=== PATIENT | female | born 1955 | race Caucasian/White ===

== ENCOUNTER 2017-11-03 15:30 | Emergency (ER) | payer MEDICARE, OTHER, SELFPAY ==
[~2017-11-03] VITALS: Ht 165.1 cm; Wt 54.4 kg
[~2017-11-03 15:30] MED LIST: ACET325 PO; ACIDOPHILUS LA1 EACH PO; ARANESP SC; AZIT500 PO; B COMPLEX WITH1 EACH PO; BUME2 PO; CHOL10002 PO; Calcium Carbon500 MG PO; Cipro250 MG PO; Culturelle1 CAP PO; FAMO20 PO; FOLI1 PO; GLUC500 PO; HYDR1TAB94 PO; LEVFLO250 PO; LOSA25 PO; LOSA50 PO; Lisinopril2.5 MG; MAGCHL64ER PO; METR500 PO; Nephro-Vite RX1 EA PO; Oxycodone-Apap1 EAC3 PO; POTA20LUD PO; POTCHL10ER PO; PROBIOTIC1 EAC1 PO; PROM25 PO; Pantoprazole So40 MG PO; Promethazine12.5 M1 PO; Pyridium200 MG PO; SPIR25 PO; SPIR50 PO; TRIPLE MAGNESI400 MG PO; VANCO 1 GR1 GM/250 M IV; VANCOMYCIN125 MG/2.5 PO; Vitamin D2000 UNIT PO; Zofran Odt4 MG PO; Zofran4 MG PO
[2017-11-03 16:05] LABS: BASOPHILS ABSOLUTE AUTO 0.05 K/mm3 (0.00-0.23); BASOPHILS PERCENT AUTO 1 % (0-2); EOSINOPHILS ABSOLUTE AUTO 0.08 K/mm3 (0.00-0.68); EOSINOPHILS PERCENT AUTO 1 % (0-6); Hematocrit 31.7 % (33.0-51.0); Hemoglobin 10.5 g/dL (11.5-16.0); IMMATURE GRAN ABSOLUTE AUTO 0.02 K/mm3 (0.00-0.10); IMMATURE GRAN PERCENT AUTO 0 % (0-1); LYMPHOCYTES ABSOLUTE AUTO 2.46 K/mm3 (0.84-5.20); LYMPHOCYTES PERCENT AUTO 33 % (21-46); MONOCYTES ABSOLUTE AUTO 0.69 K/mm3 (0.16-1.47); MONOCYTES PERCENT AUTO 9 % (4-13); Mean Corpuscular HGB 32.4 pg (26.0-34.0); Mean Corpuscular HGB Conc 33.1 g/dL (31.5-36.5); Mean Corpuscular Volume 98 fL (80-100); Mean Platelet Volume 11.4 fL (9.1-12.4); NEUTROPHILS ABSOLUTE AUTO 4.15 K/mm3 (1.96-9.15); NEUTROPHILS PERCENT AUTO 56 % (41-73); Platelet Count 100 K/mm3 (150-400); RDW Coefficient Variation 15.6 % (11.7-14.2); Red Blood Cell Count 3.24 M/mm3 (3.80-5.20); White Blood Cell Count 7.45 K/mm3 (4.00-11.30)
[2017-11-03 16:25] LABS: Albumin, Blood 1.7 g/dL (3.4-5.0); Albumin/Globulin Ratio 0.4 (0.8-1.8); Bilirubin, Total 0.6 mg/dL (0.1-1.0); Bun/Creatinine Ratio 4.5 (12.0-20.0); Calcium, Blood 6.5 mg/dL (8.5-10.1); Creatinine, Blood 5.33 mg/dL (0.40-1.00); Globulin, Blood 4.8 g/dL (2.2-4.0); Potassium, Blood 3.6 mmol/L (3.5-5.5); Total Protein, Blood 6.5 g/dL (6.4-8.2)
[2017-11-03 21:00] LABS: Automated BF WBC Count 0.006 K/mm3 (0-999); Body Fluid WBC Count 6 /mm3 (0-999)
[2017-11-03 21:33] LABS: RBC Count, Body Fluid 350 /mm3 (0-0)
[2017-11-03 21:39] LABS: Appearance, Body Fluid Clear (Clear); Color, Body Fluid No color (None-Yellow)
[2017-11-03 21:40] LABS: Total Cell Count, Body Fluid 53
== END 2017-11-03 23:13 | disposition home or self-care (01) ==
LOC: ER 15:30
PROVIDERS: Internal Medicine Nephrology; Physician Assistant
DX: R53.83 Other fatigue (principal); I12.0 Hypertensive chronic kidney disease with stage 5 chronic kidney disease or end stage renal disease; N18.6 End stage renal disease; E83.51 Hypocalcemia; E88.09 Other disorders of plasma-protein metabolism, not elsewhere classified; Z99.2 Dependence on renal dialysis
CPT/HCPCS: 36415; 71046; 76705; 80053; 84443; 84484; 85025; 89051; 93005; 93010; 99284-25; G0257

== ENCOUNTER 2017-12-08 22:38 | Inpatient (IN) | payer MEDICARE, OTHER ==
[~2017-12-08] VITALS: Ht 165.1 cm; Wt 55.7 kg
[~2017-12-08 22:38] MED LIST changes: +CIPR500 PO; +Carafate1 GM/10 ML PO; +Prilosec Otc20 MG PO
[2017-12-08 23:03] LABS: BASOPHILS ABSOLUTE AUTO 0.03 K/mm3 (0.00-0.23); BASOPHILS PERCENT AUTO 1 % (0-2); EOSINOPHILS PERCENT AUTO 0 % (0-6); Hematocrit 38.8 % (33.0-51.0); Hemoglobin 12.9 g/dL (11.5-16.0); IMMATURE GRAN ABSOLUTE AUTO 0.09 K/mm3 (0.00-0.10); IMMATURE GRAN PERCENT AUTO 1 % (0-1); LYMPHOCYTES ABSOLUTE AUTO 0.93 K/mm3 (0.84-5.20); LYMPHOCYTES PERCENT AUTO 15 % (21-46); MONOCYTES ABSOLUTE AUTO 0.87 K/mm3 (0.16-1.47); MONOCYTES PERCENT AUTO 14 % (4-13); Mean Corpuscular HGB 31.9 pg (26.0-34.0); Mean Corpuscular HGB Conc 33.2 g/dL (31.5-36.5); Mean Corpuscular Volume 96 fL (80-100); Mean Platelet Volume 9.7 fL (9.1-12.4); NEUTROPHILS PERCENT AUTO 70 % (41-73); Platelet Count 138 K/mm3 (150-400); RDW Coefficient Variation 16.8 % (11.7-14.2); RDW Standard Deviation 57.8 fL (35.1-46.3); Red Blood Cell Count 4.05 M/mm3 (3.80-5.20); White Blood Cell Count 6.32 K/mm3 (4.00-11.30)
[2017-12-08 23:22] LABS: Albumin, Blood 1.4 g/dL (3.4-5.0); Albumin/Globulin Ratio 0.3 (0.8-1.8); Bilirubin, Total 0.8 mg/dL (0.1-1.0); Bun/Creatinine Ratio 4.8 (12.0-20.0); Calcium, Blood 8.5 mg/dL (8.5-10.1); Creatinine, Blood 7.34 mg/dL (0.40-1.00); Globulin, Blood 5.4 g/dL (2.2-4.0); Potassium, Blood 5.8 mmol/L (3.5-5.5); Total Protein, Blood 6.8 g/dL (6.4-8.2)
[2017-12-09 01:29] LABS: CHOL/HDL RATIO 2.4; Cholesterol 112 mg/dL (50-200); HDL Cholesterol 46 mg/dL (>39); LDL/HDL RATIO 0.9; Low Density Lipoprotein Chol 43 mg/dL (0-110); Triglycerides 117 mg/dL (30-160); Very Low Density Lipoprot Chol 23 mg/dL (6-32)
[2017-12-09 01:32] LABS: Automated BF WBC Count 1.273 K/mm3 (0-999); Body Fluid WBC Count 1273 /mm3 (0-999)
[2017-12-09 01:43] LABS: RBC Count, Body Fluid 12 /mm3 (0-0)
[2017-12-09 01:47] LABS: Albumin, Body Fluid 0.1 g/dL; Protein, Body Fluid 0.2 g/dL
[2017-12-09 01:51] LABS: Lactate Dehydrogenase, Body Fl 25 U/L
[2017-12-09 02:12] LABS: Appearance, Body Fluid Hazy (Clear); Color, Body Fluid No color (None-Yellow)
[2017-12-09 02:17] LABS: Total Cell Count, Body Fluid 100
[2017-12-09 10:25] LABS: Automated BF WBC Count 1.287 K/mm3 (0-999); Body Fluid WBC Count 1287 /mm3 (0-999)
[2017-12-09 11:19] LABS: Hematocrit 28.7 % (33.0-51.0); Hemoglobin 9.5 g/dL (11.5-16.0); Mean Corpuscular HGB 32.4 pg (26.0-34.0); Mean Corpuscular HGB Conc 33.1 g/dL (31.5-36.5); Mean Corpuscular Volume 98 fL (80-100); Mean Platelet Volume 10.4 fL (9.1-12.4); Platelet Count 101 K/mm3 (150-400); RDW Coefficient Variation 16.9 % (11.7-14.2); RDW Standard Deviation 59.2 fL (35.1-46.3); Red Blood Cell Count 2.93 M/mm3 (3.80-5.20); White Blood Cell Count 6.75 K/mm3 (4.00-11.30)
[2017-12-09 11:27] LABS: RBC Count, Body Fluid 14 /mm3 (0-0)
[2017-12-09 11:36] LABS: Albumin/Globulin Ratio 0.5 (0.8-1.8); Bilirubin, Total 0.6 mg/dL (0.1-1.0); Bun/Creatinine Ratio 4.7 (12.0-20.0); Calcium, Blood 7.7 mg/dL (8.5-10.1); Creatinine, Blood 7.67 mg/dL (0.40-1.00); Globulin, Blood 4.4 g/dL (2.2-4.0); Potassium, Blood 5.4 mmol/L (3.5-5.5); Total Protein, Blood 6.4 g/dL (6.4-8.2)
[2017-12-09 12:05] LABS: Appearance, Body Fluid Hazy (Clear); Color, Body Fluid L Yellow (None-Yellow)
[2017-12-09 12:35] LABS: Total Cell Count, Body Fluid 100
[2017-12-10 04:19] LABS: BASOPHILS ABSOLUTE AUTO 0.03 K/mm3 (0.00-0.23); BASOPHILS PERCENT AUTO 1 % (0-2); EOSINOPHILS ABSOLUTE AUTO 0.03 K/mm3 (0.00-0.68); EOSINOPHILS PERCENT AUTO 1 % (0-6); Hematocrit 28.1 % (33.0-51.0); Hemoglobin 9.3 g/dL (11.5-16.0); IMMATURE GRAN ABSOLUTE AUTO 0.02 K/mm3 (0.00-0.10); IMMATURE GRAN PERCENT AUTO 1 % (0-1); LYMPHOCYTES ABSOLUTE AUTO 0.88 K/mm3 (0.84-5.20); LYMPHOCYTES PERCENT AUTO 27 % (21-46); MONOCYTES ABSOLUTE AUTO 0.56 K/mm3 (0.16-1.47); MONOCYTES PERCENT AUTO 17 % (4-13); Mean Corpuscular HGB 32.2 pg (26.0-34.0); Mean Corpuscular HGB Conc 33.1 g/dL (31.5-36.5); Mean Corpuscular Volume 97 fL (80-100); NEUTROPHILS ABSOLUTE AUTO 1.72 K/mm3 (1.96-9.15); NEUTROPHILS PERCENT AUTO 53 % (41-73); Platelet Count 76 K/mm3 (150-400); RDW Coefficient Variation 16.6 % (11.7-14.2); RDW Standard Deviation 57.8 fL (35.1-46.3); Red Blood Cell Count 2.89 M/mm3 (3.80-5.20); White Blood Cell Count 3.24 K/mm3 (4.00-11.30)
[2017-12-10 04:35] LABS: Albumin, Blood 1.7 g/dL (3.4-5.0); Albumin/Globulin Ratio 0.4 (0.8-1.8); Bilirubin, Total 0.5 mg/dL (0.1-1.0); Bun/Creatinine Ratio 4.8 (12.0-20.0); Creatinine, Blood 6.42 mg/dL (0.40-1.00); Globulin, Blood 4.2 g/dL (2.2-4.0); Potassium, Blood 3.9 mmol/L (3.5-5.5); Total Protein, Blood 5.9 g/dL (6.4-8.2)
[2017-12-11 03:33] LABS: BASOPHILS ABSOLUTE AUTO 0.01 K/mm3 (0.00-0.23); BASOPHILS PERCENT AUTO 0 % (0-2); EOSINOPHILS ABSOLUTE AUTO 0.05 K/mm3 (0.00-0.68); EOSINOPHILS PERCENT AUTO 2 % (0-6); Hematocrit 26.2 % (33.0-51.0); Hemoglobin 8.4 g/dL (11.5-16.0); IMMATURE GRAN ABSOLUTE AUTO 0.02 K/mm3 (0.00-0.10); IMMATURE GRAN PERCENT AUTO 1 % (0-1); LYMPHOCYTES ABSOLUTE AUTO 0.82 K/mm3 (0.84-5.20); LYMPHOCYTES PERCENT AUTO 26 % (21-46); MONOCYTES ABSOLUTE AUTO 0.37 K/mm3 (0.16-1.47); MONOCYTES PERCENT AUTO 12 % (4-13); Mean Corpuscular HGB 31.8 pg (26.0-34.0); Mean Corpuscular HGB Conc 32.1 g/dL (31.5-36.5); Mean Corpuscular Volume 99 fL (80-100); Mean Platelet Volume 10.8 fL (9.1-12.4); NEUTROPHILS PERCENT AUTO 60 % (41-73); Platelet Count 74 K/mm3 (150-400); RDW Coefficient Variation 16.2 % (11.7-14.2); RDW Standard Deviation 58.1 fL (35.1-46.3); Red Blood Cell Count 2.64 M/mm3 (3.80-5.20); White Blood Cell Count 3.17 K/mm3 (4.00-11.30)
[2017-12-11 03:44] LABS: International Normalized Ratio 1.36; Prothrombin Time Results 13.8 Sec (9.7-11.5)
[2017-12-11 03:50] LABS: Alanine Aminotransfer (ALT/SGP 8 U/L (12-78); Albumin, Blood 1.3 g/dL (3.4-5.0); Albumin/Globulin Ratio 0.4 (0.8-1.8); Alk Phos 160 U/L (50-136); Anion Gap 10 mmol/L (6-16); Aspartate Aminotrans (AST/SGOT 14 U/L (12-37); Bilirubin, Total 0.4 mg/dL (0.1-1.0); Blood Urea Nitrogen 22 mg/dL (8-24); Bun/Creatinine Ratio 4.3 (12.0-20.0); CO2, Blood 23 mmol/L (21-32); Calcium, Blood 7.1 mg/dL (8.5-10.1); Chloride, Blood 101 mmol/L (98-108); Creatinine, Blood 5.06 mg/dL (0.40-1.00); Globulin, Blood 3.7 g/dL (2.2-4.0); Glomerular Filtration Rate 9 (60-); Glucose, Blood 144 mg/dL (70-99); Phosphorus, Blood 2.7 mg/dL (2.5-4.9); Sodium, Blood 134 mmol/L (136-145)
[2017-12-11 04:13] LABS: Magnesium, Blood 1.1 mg/dL (1.6-2.4)
[2017-12-11 07:58] LABS: Automated BF WBC Count 0.079 K/mm3 (0-999); Body Fluid WBC Count 79 /mm3 (0-999)
[2017-12-11 08:21] LABS: RBC Count, Body Fluid 2 /mm3 (0-0)
[2017-12-11 08:28] LABS: Appearance, Body Fluid Clear (Clear); Color, Body Fluid No color (None-Yellow)
[2017-12-11 08:40] LABS: Total Cell Count, Body Fluid 100
[2017-12-11 18:15] LABS: Source, Urine Catheter
[2017-12-11 18:21] LABS: Appearance, Urine Clear (Clear); Blood, Urine 4+ (Neg); Color, Urine Amber (P-Yellow); Glucose Qualitative, Urine Neg (Neg); Ketones, Urine 1+ (Neg); Leukocyte Esterase, Urine 2+ (Neg); Nitrite, Urine Neg (Neg); Protein, Urine 2+ (Neg); Urobilinogen, Urine NORM (Normal)
[2017-12-11 18:32] LABS: Bilirubin, Urine 1+ (Neg)
[2017-12-11 18:33] LABS: Amorphous Light (0-Heavy); Bacteria Mod /hpf; Squamous Epithelial Cells Few /hpf (Few)
[2017-12-12 03:53] LABS: BASOPHILS ABSOLUTE AUTO 0.02 K/mm3 (0.00-0.23); BASOPHILS PERCENT AUTO 1 % (0-2); EOSINOPHILS ABSOLUTE AUTO 0.03 K/mm3 (0.00-0.68); EOSINOPHILS PERCENT AUTO 1 % (0-6); Hematocrit 26.3 % (33.0-51.0); Hemoglobin 8.8 g/dL (11.5-16.0); IMMATURE GRAN ABSOLUTE AUTO 0.03 K/mm3 (0.00-0.10); IMMATURE GRAN PERCENT AUTO 1 % (0-1); LYMPHOCYTES ABSOLUTE AUTO 1.09 K/mm3 (0.84-5.20); LYMPHOCYTES PERCENT AUTO 28 % (21-46); MONOCYTES ABSOLUTE AUTO 0.49 K/mm3 (0.16-1.47); MONOCYTES PERCENT AUTO 12 % (4-13); Mean Corpuscular HGB Conc 33.5 g/dL (31.5-36.5); Mean Corpuscular Volume 99 fL (80-100); NEUTROPHILS ABSOLUTE AUTO 2.28 K/mm3 (1.96-9.15); NEUTROPHILS PERCENT AUTO 58 % (41-73); Platelet Count 89 K/mm3 (150-400); RDW Coefficient Variation 16.8 % (11.7-14.2); RDW Standard Deviation 59.2 fL (35.1-46.3); Red Blood Cell Count 2.67 M/mm3 (3.80-5.20); White Blood Cell Count 3.94 K/mm3 (4.00-11.30)
[2017-12-12 04:08] LABS: Alanine Aminotransfer (ALT/SGP 9 U/L (12-78); Albumin, Blood 1.3 g/dL (3.4-5.0); Albumin/Globulin Ratio 0.4 (0.8-1.8); Alk Phos 153 U/L (50-136); Anion Gap 10 mmol/L (6-16); Aspartate Aminotrans (AST/SGOT 20 U/L (12-37); Bilirubin, Total 0.4 mg/dL (0.1-1.0); Blood Urea Nitrogen 19 mg/dL (8-24); Bun/Creatinine Ratio 3.7 (12.0-20.0); CO2, Blood 23 mmol/L (21-32); Calcium, Blood 7.4 mg/dL (8.5-10.1); Chloride, Blood 101 mmol/L (98-108); Creatinine, Blood 5.07 mg/dL (0.40-1.00); Globulin, Blood 3.6 g/dL (2.2-4.0); Glomerular Filtration Rate 9 (60-); Glucose, Blood 128 mg/dL (70-99); Magnesium, Blood 1.6 mg/dL (1.6-2.4); Phosphorus, Blood 2.7 mg/dL (2.5-4.9); Potassium, Blood 3.4 mmol/L (3.5-5.5); Sodium, Blood 134 mmol/L (136-145); Total Protein, Blood 4.9 g/dL (6.4-8.2)
[2017-12-12 07:30] LABS: Automated BF WBC Count 0.091 K/mm3 (0-999); Body Fluid WBC Count 91 /mm3 (0-999)
[2017-12-12 08:32] LABS: RBC Count, Body Fluid 6 /mm3 (0-0)
[2017-12-12 08:55] LABS: Appearance, Body Fluid Clear (Clear); Color, Body Fluid No color (None-Yellow)
[2017-12-12 08:56] LABS: Total Cell Count, Body Fluid 100
[2017-12-13 04:28] LABS: BASOPHILS ABSOLUTE AUTO 0.02 K/mm3 (0.00-0.23); BASOPHILS PERCENT AUTO 1 % (0-2); EOSINOPHILS ABSOLUTE AUTO 0.04 K/mm3 (0.00-0.68); EOSINOPHILS PERCENT AUTO 1 % (0-6); Hematocrit 26.3 % (33.0-51.0); Hemoglobin 8.7 g/dL (11.5-16.0); IMMATURE GRAN ABSOLUTE AUTO 0.03 K/mm3 (0.00-0.10); IMMATURE GRAN PERCENT AUTO 1 % (0-1); LYMPHOCYTES ABSOLUTE AUTO 1.04 K/mm3 (0.84-5.20); LYMPHOCYTES PERCENT AUTO 27 % (21-46); MONOCYTES ABSOLUTE AUTO 0.46 K/mm3 (0.16-1.47); MONOCYTES PERCENT AUTO 12 % (4-13); Mean Corpuscular HGB 32.5 pg (26.0-34.0); Mean Corpuscular HGB Conc 33.1 g/dL (31.5-36.5); Mean Corpuscular Volume 98 fL (80-100); Mean Platelet Volume 10.1 fL (9.1-12.4); NEUTROPHILS ABSOLUTE AUTO 2.22 K/mm3 (1.96-9.15); NEUTROPHILS PERCENT AUTO 58 % (41-73); Platelet Count 90 K/mm3 (150-400); RDW Coefficient Variation 17.1 % (11.7-14.2); RDW Standard Deviation 59.8 fL (35.1-46.3); Red Blood Cell Count 2.68 M/mm3 (3.80-5.20); White Blood Cell Count 3.81 K/mm3 (4.00-11.30)
[2017-12-13 04:50] LABS: Alanine Aminotransfer (ALT/SGP 7 U/L (12-78); Albumin, Blood 1.2 g/dL (3.4-5.0); Albumin/Globulin Ratio 0.3 (0.8-1.8); Alk Phos 152 U/L (50-136); Anion Gap 9 mmol/L (6-16); Aspartate Aminotrans (AST/SGOT 16 U/L (12-37); Bilirubin, Total 0.6 mg/dL (0.1-1.0); Blood Urea Nitrogen 19 mg/dL (8-24); Bun/Creatinine Ratio 3.8 (12.0-20.0); CO2, Blood 24 mmol/L (21-32); Calcium, Blood 7.6 mg/dL (8.5-10.1); Chloride, Blood 101 mmol/L (98-108); Creatinine, Blood 5.05 mg/dL (0.40-1.00); Globulin, Blood 3.7 g/dL (2.2-4.0); Glomerular Filtration Rate 9 (60-); Glucose, Blood 126 mg/dL (70-99); Magnesium, Blood 1.6 mg/dL (1.6-2.4); Phosphorus, Blood 2.6 mg/dL (2.5-4.9); Potassium, Blood 3.4 mmol/L (3.5-5.5); Sodium, Blood 134 mmol/L (136-145); Total Protein, Blood 4.9 g/dL (6.4-8.2)
[2017-12-13 09:35] LABS: Automated BF WBC Count 0.162 K/mm3 (0-999); Body Fluid WBC Count 162 /mm3 (0-999)
[2017-12-13 10:21] LABS: RBC Count, Body Fluid 6 /mm3 (0-0)
[2017-12-13 10:31] LABS: Appearance, Body Fluid Clear (Clear); Color, Body Fluid No color (None-Yellow)
[2017-12-13 10:32] LABS: Total Cell Count, Body Fluid 100
[2017-12-14 04:55] LABS: Hematocrit 28.1 % (33.0-51.0); Hemoglobin 9.2 g/dL (11.5-16.0)
[2017-12-14 05:16] LABS: Albumin, Blood 1.2 g/dL (3.4-5.0); Anion Gap 8 mmol/L (6-16); Blood Urea Nitrogen 19 mg/dL (8-24); Bun/Creatinine Ratio 3.7 (12.0-20.0); CO2, Blood 25 mmol/L (21-32); Chloride, Blood 100 mmol/L (98-108); Glomerular Filtration Rate 9 (60-); Glucose, Blood 133 mg/dL (70-99); Magnesium, Blood 1.8 mg/dL (1.6-2.4); Phosphorus, Blood 2.8 mg/dL (2.5-4.9); Potassium, Blood 3.4 mmol/L (3.5-5.5); Sodium, Blood 133 mmol/L (136-145)
[2017-12-14 13:13] LABS: Performing Lab LABCORP; Test Name 183119
[2017-12-15 04:13] LABS: Hematocrit 26.5 % (33.0-51.0); Hemoglobin 8.7 g/dL (11.5-16.0)
[2017-12-15 04:27] LABS: Albumin, Blood 1.5 g/dL (3.4-5.0); Anion Gap 9 mmol/L (6-16); Blood Urea Nitrogen 18 mg/dL (8-24); Bun/Creatinine Ratio 3.5 (12.0-20.0); CO2, Blood 27 mmol/L (21-32); Chloride, Blood 98 mmol/L (98-108); Creatinine, Blood 5.08 mg/dL (0.40-1.00); Glomerular Filtration Rate 9 (60-); Glucose, Blood 119 mg/dL (70-99); Magnesium, Blood 1.5 mg/dL (1.6-2.4); Phosphorus, Blood 2.8 mg/dL (2.5-4.9); Potassium, Blood 3.3 mmol/L (3.5-5.5); Sodium, Blood 134 mmol/L (136-145)
[2017-12-15 08:53] LABS: Automated BF WBC Count 0.326 K/mm3 (0-999); Body Fluid WBC Count 326 /mm3 (0-999)
[2017-12-15 09:53] LABS: Appearance, Body Fluid Clear (Clear); Color, Body Fluid No color (None-Yellow)
[2017-12-15 10:02] LABS: RBC Count, Body Fluid 13 /mm3 (0-0)
[2017-12-15 10:36] LABS: Total Cell Count, Body Fluid 100
[2017-12-16 04:31] LABS: Hematocrit 25.7 % (33.0-51.0); Hemoglobin 8.3 g/dL (11.5-16.0)
[2017-12-16 04:49] LABS: Albumin, Blood 1.8 g/dL (3.4-5.0); Anion Gap 8 mmol/L (6-16); Blood Urea Nitrogen 18 mg/dL (8-24); Bun/Creatinine Ratio 3.7 (12.0-20.0); CO2, Blood 29 mmol/L (21-32); Calcium, Blood 8.4 mg/dL (8.5-10.1); Chloride, Blood 97 mmol/L (98-108); Glomerular Filtration Rate 10 (60-); Glucose, Blood 95 mg/dL (70-99); Magnesium, Blood 1.8 mg/dL (1.6-2.4); Phosphorus, Blood 2.9 mg/dL (2.5-4.9); Potassium, Blood 3.6 mmol/L (3.5-5.5); Sodium, Blood 134 mmol/L (136-145)
[2017-12-16 07:15] LABS: Automated BF WBC Count 0.084 K/mm3 (0-999); Body Fluid WBC Count 84 /mm3 (0-999)
[2017-12-16 07:23] LABS: RBC Count, Body Fluid 1 /mm3 (0-0)
[2017-12-16 07:24] LABS: Appearance, Body Fluid Clear (Clear); Color, Body Fluid No color (None-Yellow)
[2017-12-16 07:54] LABS: Total Cell Count, Body Fluid 100
[2017-12-17 06:57] LABS: BASOPHILS ABSOLUTE AUTO 0.01 K/mm3 (0.00-0.23); BASOPHILS PERCENT AUTO 0 % (0-2); EOSINOPHILS ABSOLUTE AUTO 0.04 K/mm3 (0.00-0.68); EOSINOPHILS PERCENT AUTO 1 % (0-6); Hematocrit 26.2 % (33.0-51.0); Hemoglobin 8.3 g/dL (11.5-16.0); IMMATURE GRAN ABSOLUTE AUTO 0.02 K/mm3 (0.00-0.10); IMMATURE GRAN PERCENT AUTO 1 % (0-1); LYMPHOCYTES ABSOLUTE AUTO 1.02 K/mm3 (0.84-5.20); LYMPHOCYTES PERCENT AUTO 30 % (21-46); MONOCYTES ABSOLUTE AUTO 0.67 K/mm3 (0.16-1.47); MONOCYTES PERCENT AUTO 20 % (4-13); Mean Corpuscular HGB 30.7 pg (26.0-34.0); Mean Corpuscular HGB Conc 31.7 g/dL (31.5-36.5); Mean Corpuscular Volume 97 fL (80-100); Mean Platelet Volume 10.1 fL (9.1-12.4); NEUTROPHILS ABSOLUTE AUTO 1.68 K/mm3 (1.96-9.15); NEUTROPHILS PERCENT AUTO 49 % (41-73); Platelet Count 97 K/mm3 (150-400); RDW Coefficient Variation 16.5 % (11.7-14.2); RDW Standard Deviation 56.8 fL (35.1-46.3); White Blood Cell Count 3.44 K/mm3 (4.00-11.30)
[2017-12-17 07:14] LABS: Alanine Aminotransfer (ALT/SGP 8 U/L (12-78); Albumin, Blood 2.1 g/dL (3.4-5.0); Albumin/Globulin Ratio 0.6 (0.8-1.8); Alk Phos 101 U/L (50-136); Anion Gap 8 mmol/L (6-16); Aspartate Aminotrans (AST/SGOT 15 U/L (12-37); Bilirubin, Direct 0.2 mg/dL (0.0-0.3); Bilirubin, Indirect 0.5 mg/dL (0.1-0.7); Bilirubin, Total 0.7 mg/dL (0.1-1.0); Blood Urea Nitrogen 18 mg/dL (8-24); Bun/Creatinine Ratio 3.5 (12.0-20.0); CO2, Blood 30 mmol/L (21-32); Calcium, Blood 8.8 mg/dL (8.5-10.1); Chloride, Blood 97 mmol/L (98-108); Creatinine, Blood 5.19 mg/dL (0.40-1.00); Globulin, Blood 3.6 g/dL (2.2-4.0); Glomerular Filtration Rate 9 (60-); Glucose, Blood 91 mg/dL (70-99); Magnesium, Blood 1.8 mg/dL (1.6-2.4); Phosphorus, Blood 3.2 mg/dL (2.5-4.9); Potassium, Blood 3.8 mmol/L (3.5-5.5); Sodium, Blood 135 mmol/L (136-145); Total Protein, Blood 5.7 g/dL (6.4-8.2)
[2017-12-17 07:30] LABS: Automated BF WBC Count 0.556 K/mm3 (0-999); Body Fluid WBC Count 556 /mm3 (0-999)
[2017-12-17 07:40] LABS: Appearance, Body Fluid Clear (Clear); Color, Body Fluid L Yellow (None-Yellow)
[2017-12-17 07:46] LABS: RBC Count, Body Fluid 23 /mm3 (0-0)
[2017-12-17 08:01] LABS: Total Cell Count, Body Fluid 100
[2017-12-18 05:54] LABS: Hematocrit 29.6 % (33.0-51.0); Hemoglobin 9.4 g/dL (11.5-16.0)
[2017-12-18 06:23] LABS: Anion Gap 9 mmol/L (6-16); Blood Urea Nitrogen 18 mg/dL (8-24); Bun/Creatinine Ratio 3.6 (12.0-20.0); CO2, Blood 28 mmol/L (21-32); Calcium, Blood 8.7 mg/dL (8.5-10.1); Chloride, Blood 97 mmol/L (98-108); Creatinine, Blood 4.99 mg/dL (0.40-1.00); Glomerular Filtration Rate 9 (60-); Glucose, Blood 151 mg/dL (70-99); Magnesium, Blood 1.8 mg/dL (1.6-2.4); Phosphorus, Blood 3.1 mg/dL (2.5-4.9); Potassium, Blood 3.3 mmol/L (3.5-5.5); Sodium, Blood 134 mmol/L (136-145)
[2017-12-18 09:26] LABS: Automated BF WBC Count 0.168 K/mm3 (0-999); Body Fluid WBC Count 168 /mm3 (0-999)
[2017-12-18 09:34] LABS: Appearance, Body Fluid Clear (Clear); Color, Body Fluid No color (None-Yellow); RBC Count, Body Fluid 6 /mm3 (0-0)
[2017-12-18 09:57] LABS: Total Cell Count, Body Fluid 100
[2017-12-19 06:04] LABS: BASOPHILS ABSOLUTE AUTO 0.03 K/mm3 (0.00-0.23); BASOPHILS PERCENT AUTO 0 % (0-2); EOSINOPHILS ABSOLUTE AUTO 0.04 K/mm3 (0.00-0.68); EOSINOPHILS PERCENT AUTO 0 % (0-6); Hematocrit 33.2 % (33.0-51.0); Hemoglobin 10.6 g/dL (11.5-16.0); IMMATURE GRAN ABSOLUTE AUTO 0.04 K/mm3 (0.00-0.10); IMMATURE GRAN PERCENT AUTO 0 % (0-1); LYMPHOCYTES ABSOLUTE AUTO 1.62 K/mm3 (0.84-5.20); LYMPHOCYTES PERCENT AUTO 18 % (21-46); MONOCYTES ABSOLUTE AUTO 1.91 K/mm3 (0.16-1.47); MONOCYTES PERCENT AUTO 21 % (4-13); Mean Corpuscular HGB 31.3 pg (26.0-34.0); Mean Corpuscular HGB Conc 31.9 g/dL (31.5-36.5); Mean Corpuscular Volume 98 fL (80-100); Mean Platelet Volume 9.8 fL (9.1-12.4); NEUTROPHILS ABSOLUTE AUTO 5.57 K/mm3 (1.96-9.15); NEUTROPHILS PERCENT AUTO 61 % (41-73); Platelet Count 233 K/mm3 (150-400); RDW Coefficient Variation 16.3 % (11.7-14.2); RDW Standard Deviation 58.4 fL (35.1-46.3); Red Blood Cell Count 3.39 M/mm3 (3.80-5.20); White Blood Cell Count 9.21 K/mm3 (4.00-11.30)
[2017-12-19 06:21] LABS: International Normalized Ratio 1.18
[2017-12-19 06:29] LABS: Anion Gap 10 mmol/L (6-16); Blood Urea Nitrogen 18 mg/dL (8-24); Bun/Creatinine Ratio 3.7 (12.0-20.0); CO2, Blood 30 mmol/L (21-32); Calcium, Blood 8.8 mg/dL (8.5-10.1); Chloride, Blood 94 mmol/L (98-108); Glomerular Filtration Rate 10 (60-); Glucose, Blood 176 mg/dL (70-99); Magnesium, Blood 1.9 mg/dL (1.6-2.4); Phosphorus, Blood 3.4 mg/dL (2.5-4.9); Potassium, Blood 3.4 mmol/L (3.5-5.5); Sodium, Blood 134 mmol/L (136-145)
[2017-12-20 04:50] LABS: Hematocrit 29.6 % (33.0-51.0); Hemoglobin 9.3 g/dL (11.5-16.0)
[2017-12-20 05:16] LABS: Albumin, Blood 1.5 g/dL (3.4-5.0); Anion Gap 8 mmol/L (6-16); Blood Urea Nitrogen 17 mg/dL (8-24); Bun/Creatinine Ratio 4.2 (12.0-20.0); CO2, Blood 28 mmol/L (21-32); Chloride, Blood 100 mmol/L (98-108); Creatinine, Blood 4.05 mg/dL (0.40-1.00); Glomerular Filtration Rate 12 (60-); Glucose, Blood 111 mg/dL (70-99); Phosphorus, Blood 4.6 mg/dL (2.5-4.9); Potassium, Blood 5.2 mmol/L (3.5-5.5); Sodium, Blood 136 mmol/L (136-145)
[2017-12-21 06:28] LABS: Albumin, Blood 1.5 g/dL (3.4-5.0); Anion Gap 9 mmol/L (6-16); Blood Urea Nitrogen 20 mg/dL (8-24); Bun/Creatinine Ratio 5.5 (12.0-20.0); CO2, Blood 29 mmol/L (21-32); Calcium, Blood 7.7 mg/dL (8.5-10.1); Chloride, Blood 97 mmol/L (98-108); Creatinine, Blood 3.61 mg/dL (0.40-1.00); Glomerular Filtration Rate 14 (60-); Glucose, Blood 82 mg/dL (70-99); Magnesium, Blood 2.1 mg/dL (1.6-2.4); Phosphorus, Blood 3.8 mg/dL (2.5-4.9); Potassium, Blood 4.2 mmol/L (3.5-5.5); Sodium, Blood 135 mmol/L (136-145)
[2017-12-22 05:59] LABS: Hematocrit 28.1 % (33.0-51.0); Hemoglobin 8.8 g/dL (11.5-16.0)
[2017-12-22 06:31] LABS: Albumin, Blood 1.4 g/dL (3.4-5.0); Anion Gap 9 mmol/L (6-16); Blood Urea Nitrogen 29 mg/dL (8-24); Bun/Creatinine Ratio 5.9 (12.0-20.0); CO2, Blood 29 mmol/L (21-32); Calcium, Blood 7.9 mg/dL (8.5-10.1); Chloride, Blood 97 mmol/L (98-108); Creatinine, Blood 4.92 mg/dL (0.40-1.00); Glomerular Filtration Rate 10 (60-); Glucose, Blood 92 mg/dL (70-99); Magnesium, Blood 2.4 mg/dL (1.6-2.4); Phosphorus, Blood 2.7 mg/dL (2.5-4.9); Sodium, Blood 135 mmol/L (136-145)
[2017-12-23 06:20] LABS: BASOPHILS ABSOLUTE AUTO 0.04 K/mm3 (0.00-0.23); BASOPHILS PERCENT AUTO 1 % (0-2); EOSINOPHILS ABSOLUTE AUTO 0.06 K/mm3 (0.00-0.68); EOSINOPHILS PERCENT AUTO 1 % (0-6); Hematocrit 28.4 % (33.0-51.0); Hemoglobin 8.4 g/dL (11.5-16.0); IMMATURE GRAN ABSOLUTE AUTO 0.23 K/mm3 (0.00-0.10); IMMATURE GRAN PERCENT AUTO 3 % (0-1); LYMPHOCYTES ABSOLUTE AUTO 1.93 K/mm3 (0.84-5.20); LYMPHOCYTES PERCENT AUTO 26 % (21-46); MONOCYTES ABSOLUTE AUTO 1.13 K/mm3 (0.16-1.47); MONOCYTES PERCENT AUTO 15 % (4-13); Mean Corpuscular HGB 30.9 pg (26.0-34.0); Mean Corpuscular HGB Conc 29.6 g/dL (31.5-36.5); Mean Platelet Volume 9.9 fL (9.1-12.4); NEUTROPHILS ABSOLUTE AUTO 4.03 K/mm3 (1.96-9.15); NEUTROPHILS PERCENT AUTO 54 % (41-73); Platelet Count 155 K/mm3 (150-400); RDW Coefficient Variation 16.7 % (11.7-14.2); RDW Standard Deviation 61.3 fL (35.1-46.3); Red Blood Cell Count 2.72 M/mm3 (3.80-5.20); White Blood Cell Count 7.42 K/mm3 (4.00-11.30)
[2017-12-23 06:23] LABS: Mean Corpuscular Volume 104 fL (80-100)
[2017-12-23 06:39] LABS: Albumin, Blood 1.5 g/dL (3.4-5.0); Anion Gap 9 mmol/L (6-16); Blood Urea Nitrogen 17 mg/dL (8-24); Bun/Creatinine Ratio 4.6 (12.0-20.0); CO2, Blood 28 mmol/L (21-32); Calcium, Blood 7.8 mg/dL (8.5-10.1); Chloride, Blood 103 mmol/L (98-108); Creatinine, Blood 3.66 mg/dL (0.40-1.00); Glomerular Filtration Rate 13 (60-); Glucose, Blood 97 mg/dL (70-99); Magnesium, Blood 2.3 mg/dL (1.6-2.4); Phosphorus, Blood 2.2 mg/dL (2.5-4.9); Potassium, Blood 3.6 mmol/L (3.5-5.5); Sodium, Blood 140 mmol/L (136-145)
[2017-12-24 10:31] LABS: Hematocrit 28.1 % (33.0-51.0)
[2017-12-24 10:53] LABS: Albumin, Blood 1.3 g/dL (3.4-5.0); Anion Gap 7 mmol/L (6-16); Blood Urea Nitrogen 16 mg/dL (8-24); Bun/Creatinine Ratio 4.9 (12.0-20.0); CO2, Blood 31 mmol/L (21-32); Calcium, Blood 7.6 mg/dL (8.5-10.1); Chloride, Blood 102 mmol/L (98-108); Creatinine, Blood 3.26 mg/dL (0.40-1.00); Glomerular Filtration Rate 15 (60-); Glucose, Blood 108 mg/dL (70-99); Potassium, Blood 4.2 mmol/L (3.5-5.5); Sodium, Blood 140 mmol/L (136-145)
[2017-12-24] MEDS ORDERED: FLUC200 PO (17:58)
[2017-12-24] MEDS ORDERED: MIRT30ST MM (17:59)
[2017-12-24] MEDS ORDERED: FLUCONAZOL IV (17:59)
[2017-12-24] MEDS ORDERED: MIDO5 PO (17:59)
[2017-12-24] MEDS ORDERED: THIA100 PO (18:00)
[2017-12-24] MEDS ORDERED: ACET325 PO (18:06)
== END 2017-12-24 18:30 | disposition home or self-care (01) | DRG 981 ==
LOC: ER 22:38 → PCU 12-09 01:04 → ICUW 12-09 01:04 → MEDS 12-09 01:04 → PCU 12-09 02:23 → ICUW 12-10 13:26 → PCU 12-14 18:27 → MEDS 12-16 15:24 → ENPENDDIS 12-24 15:00 → MEDS 12-24 18:30
PROVIDERS: Emergency Medicine; Internal Medicine; Internal Medicine Critical Care Medicine; Internal Medicine Nephrology; Surgery
PROC: 3E033XZ Introduction of Vasopressor into Peripheral Vein, Percutaneous Approach (ICD-10-PCS; 2017-12-10)
PROC: 02HV33Z Insertion of Infusion Device into Superior Vena Cava, Percutaneous Approach (ICD-10-PCS; 2017-12-10)
PROC: 3E1M39Z Irrigation of Peritoneal Cavity using Dialysate, Percutaneous Approach (ICD-10-PCS; 2017-12-19)
PROC: 0WPG33Z Removal of Infusion Device from Peritoneal Cavity, Percutaneous Approach (ICD-10-PCS; principal; 2017-12-19 07:00)
DX: T85.71XA Infection and inflammatory reaction due to peritoneal dialysis catheter, initial encounter (principal); K65.2 Spontaneous bacterial peritonitis; N18.6 End stage renal disease; B37.7 Candidal sepsis; R65.20 Severe sepsis without septic shock; E43 Unspecified severe protein-calorie malnutrition; A41.52 Sepsis due to Pseudomonas; R65.21 Severe sepsis with septic shock; R57.0 Cardiogenic shock; K65.8 Other peritonitis; G92 Toxic encephalopathy; I12.0 Hypertensive chronic kidney disease with stage 5 chronic kidney disease or end stage renal disease; B96.89 Other specified bacterial agents as the cause of diseases classified elsewhere; E87.6 Hypokalemia; I10 Essential (primary) hypertension; D63.1 Anemia in chronic kidney disease; Z99.2 Dependence on renal dialysis; F32.9 Major depressive disorder, single episode, unspecified; E21.3 Hyperparathyroidism, unspecified; F10.21 Alcohol dependence, in remission; B96.1 Klebsiella pneumoniae [K. pneumoniae] as the cause of diseases classified elsewhere; I95.9 Hypotension, unspecified
CPT/HCPCS: 36415; 36430; 36556; 71045; 74176; 77001; 80053; 80061; 80069; 81001; 82042; 82140; 82248; 83605; 83615; 83690; 83735; 84100; 84157; 85014; 85018; 85025; 85027; 85610; 86850; 86900; 86901; 86923; 87040; 87070; 87086; 87106; 87186; 87205; 87493; 88108; 89051; 90686; 93005; 93010; 93306; 96365; 96375; 97110; 97116; 97161; 97165; 97530; 97535; 99285-25; C1750; C1751; G0008; G8978; G8979; G8987; G8988; J0690; J0696; J0713; J0881; J1170; J1450; J1644; J1650; J1815; J2060; J2248; J2250; J2405; J3010; J3370; J3475; J3480; J7030; J7040; J7060; P9016; P9041

== ENCOUNTER 2017-12-30 00:21 | Day surgery (SDC) | payer MEDICARE, OTHER, SELFPAY ==
[~2017-12-30 00:21] MED LIST changes: +FLUC200 PO; +FLUCONAZOL IV; +MIDO5 PO; +MIRT30ST MM; +THIA100 PO
== END 2017-12-30 10:24 | disposition home or self-care (01) ==
LOC: ATC 00:21
DX: K65.8 Other peritonitis (principal); N18.6 End stage renal disease; Z99.2 Dependence on renal dialysis; E21.3 Hyperparathyroidism, unspecified
CPT/HCPCS: 96365; J1450

== ENCOUNTER 2017-12-31 01:12 | Day surgery (SDC) | payer MEDICARE, OTHER, SELFPAY ==
[2018-01-01] MEDS ORDERED: Norco 5-325 Ta1 EACH PO (12:49)
== END 2017-12-31 10:16 | disposition home or self-care (01) ==
LOC: ATC 01:12
DX: A41.9 Sepsis, unspecified organism (principal); K65.8 Other peritonitis; N18.6 End stage renal disease; Z99.2 Dependence on renal dialysis
CPT/HCPCS: 96365; J1450

== ENCOUNTER 2018-01-01 00:31 | Day surgery (SDC) | payer MEDICARE, OTHER, SELFPAY ==
[2018-01-01] MEDS ORDERED: Norco 5-325 Ta1 EACH PO (12:49)
== END 2018-01-01 22:44 | disposition home or self-care (01) ==
LOC: ATC 00:31
DX: A41.9 Sepsis, unspecified organism (principal); K65.9 Peritonitis, unspecified; N18.6 End stage renal disease; Z99.2 Dependence on renal dialysis
CPT/HCPCS: J1450

== ENCOUNTER 2018-01-01 08:19 | Emergency (ER) | payer MEDICARE ==
[~2018-01-01] VITALS: Ht 162.6 cm; Wt 54.4 kg
[2018-01-01 10:01] LABS: BASOPHILS ABSOLUTE AUTO 0.02 K/mm3 (0.00-0.23); BASOPHILS PERCENT AUTO 0 % (0-2); EOSINOPHILS ABSOLUTE AUTO 0.05 K/mm3 (0.00-0.68); EOSINOPHILS PERCENT AUTO 1 % (0-6); Hematocrit 22.2 % (33.0-51.0); IMMATURE GRAN ABSOLUTE AUTO 0.03 K/mm3 (0.00-0.10); IMMATURE GRAN PERCENT AUTO 1 % (0-1); LYMPHOCYTES ABSOLUTE AUTO 1.31 K/mm3 (0.84-5.20); LYMPHOCYTES PERCENT AUTO 28 % (21-46); MONOCYTES ABSOLUTE AUTO 0.69 K/mm3 (0.16-1.47); MONOCYTES PERCENT AUTO 15 % (4-13); Mean Corpuscular HGB 30.4 pg (26.0-34.0); Mean Corpuscular HGB Conc 31.5 g/dL (31.5-36.5); Mean Platelet Volume 10.3 fL (9.1-12.4); NEUTROPHILS ABSOLUTE AUTO 2.56 K/mm3 (1.96-9.15); NEUTROPHILS PERCENT AUTO 55 % (41-73); Platelet Count 84 K/mm3 (150-400); RDW Standard Deviation 55.9 fL (35.1-46.3); White Blood Cell Count 4.66 K/mm3 (4.00-11.30)
[2018-01-01 10:05] LABS: Mean Corpuscular Volume 97 fL (80-100)
[2018-01-01 10:15] LABS: Albumin, Blood 1.3 g/dL (3.4-5.0); Albumin/Globulin Ratio 0.3 (0.8-1.8); Bilirubin, Total 0.3 mg/dL (0.1-1.0); Calcium, Blood 7.5 mg/dL (8.5-10.1); Creatinine, Blood 3.32 mg/dL (0.40-1.00); Globulin, Blood 4.1 g/dL (2.2-4.0); Potassium, Blood 3.7 mmol/L (3.5-5.5); Total Protein, Blood 5.4 g/dL (6.4-8.2)
[2018-01-01] MEDS ORDERED: Norco 5-325 Ta1 EACH PO (12:49)
== END 2018-01-01 13:21 | disposition home or self-care (01) ==
LOC: ER 08:19
PROVIDERS: Emergency Medicine
DX: R18.8 Other ascites (principal); M79.81 Nontraumatic hematoma of soft tissue; R00.0 Tachycardia, unspecified; Z91.048 Other nonmedicinal substance allergy status; Z79.899 Other long term (current) drug therapy; I10 Essential (primary) hypertension
CPT/HCPCS: 74176; 80053; 83690; 85025; 86850; 86900; 86901; 86923; 96361; 96365; 96367; 96375; 99284-25; J0696; J1170; J1450; J2405; J7030

== ENCOUNTER 2018-01-02 08:57 | Emergency (ER) | payer MEDICARE, OTHER ==
[~2018-01-02] VITALS: Ht 165.1 cm; Wt 54.4 kg
[~2018-01-02 08:57] MED LIST changes: +Norco 5-325 Ta1 EACH PO
[2018-01-02 10:05] LABS: Calcium, Ionized (POC) 1.06 mmol/L (1.10-1.46); Chloride (POC) 93 mmol/L (98-108); Creatinine (POC) 4.5 mg/dL (0.6-1.0); Glucose (ISTAT POC) 106 mg/dL (70-99); Hemoglobin (POC) 8.8 g/dL (12.0-16.0); Potassium (POC) 3.6 mmol/L (3.5-5.5); Sodium (POC) 133 mmol/L (135-148); Total CO2 (POC) 25 mmol/L (21-32)
== END 2018-01-02 11:45 | disposition home or self-care (01) ==
LOC: ER 08:57
PROVIDERS: Emergency Medicine
DX: R10.9 Unspecified abdominal pain (principal); F41.9 Anxiety disorder, unspecified; I12.9 Hypertensive chronic kidney disease with stage 1 through stage 4 chronic kidney disease, or unspecified chronic kidney disease; N18.9 Chronic kidney disease, unspecified; D64.9 Anemia, unspecified; Z79.899 Other long term (current) drug therapy
CPT/HCPCS: 36415; 80047; 85014; 96365; 99284-25; J1450

== ENCOUNTER 2018-02-16 10:03 | Day surgery (SDC) | payer MEDICARE, OTHER ==
[~2018-02-16 10:03] MED LIST changes: +MIRT30 PO
== END 2018-02-16 22:39 | disposition home or self-care (01) ==
LOC: US 10:03
PROC: 0W9G3ZZ Drainage of Peritoneal Cavity, Percutaneous Approach (ICD-10-PCS; principal; 2018-02-16)
DX: K70.31 Alcoholic cirrhosis of liver with ascites (principal); N18.6 End stage renal disease
CPT/HCPCS: 49083

== ENCOUNTER 2018-02-23 00:19 | Day surgery (SDC) | payer MEDICARE, OTHER | END 2018-02-23 22:48 | disposition home or self-care (01) | LOC: US 00:19 | DX: K70.31 Alcoholic cirrhosis of liver with ascites (principal) | CPT/HCPCS: 49083 ==

== ENCOUNTER 2018-03-09 09:40 | Day surgery (SDC) | payer MEDICARE, OTHER ==
[2018-03-28] MEDS ORDERED: FOLI1 PO (15:17)
[2018-03-28] MEDS ORDERED: MAGOXI400 PO (15:18)
[2018-03-28] MEDS ORDERED: POTA10T PO (15:18)
[2018-03-28] MEDS ORDERED: Vitamin D2000 UNIT PO (15:19)
[2018-03-28] MEDS ORDERED: MIDO5 PO (15:20)
== END 2018-03-09 22:38 | disposition home or self-care (01) ==
LOC: US 09:40
DX: K70.31 Alcoholic cirrhosis of liver with ascites (principal)
CPT/HCPCS: 49083

== ENCOUNTER 2018-03-14 15:03 | Emergency (ER) | payer MEDICARE, OTHER ==
[~2018-03-14] VITALS: Ht 167.6 cm; Wt 58.1 kg
[2018-03-14 15:50] LABS: Calcium, Ionized (POC) 0.91 mmol/L (1.10-1.46); Chloride (POC) 82 mmol/L (98-108); Creatinine (POC) 4.6 mg/dL (0.6-1.0); Glucose (ISTAT POC) 114 mg/dL (70-99); Hemoglobin (POC) 8.8 g/dL (12.0-16.0); Potassium (POC) 3.6 mmol/L (3.5-5.5); Sodium (POC) 121 mmol/L (135-148); Total CO2 (POC) 26 mmol/L (21-32)
[2018-03-14 16:19] LABS: BASOPHILS ABSOLUTE AUTO 0.03 K/mm3 (0.00-0.23); BASOPHILS PERCENT AUTO 1 % (0-2); EOSINOPHILS ABSOLUTE AUTO 0.02 K/mm3 (0.00-0.68); EOSINOPHILS PERCENT AUTO 0 % (0-6); Hematocrit 25.8 % (33.0-51.0); Hemoglobin 8.8 g/dL (11.5-16.0); IMMATURE GRAN ABSOLUTE AUTO 0.04 K/mm3 (0.00-0.10); IMMATURE GRAN PERCENT AUTO 1 % (0-1); LYMPHOCYTES PERCENT AUTO 29 % (21-46); MONOCYTES ABSOLUTE AUTO 0.56 K/mm3 (0.16-1.47); MONOCYTES PERCENT AUTO 9 % (4-13); Mean Corpuscular HGB 36.2 pg (26.0-34.0); Mean Corpuscular HGB Conc 34.1 g/dL (31.5-36.5); Mean Corpuscular Volume 106 fL (80-100); NEUTROPHILS ABSOLUTE AUTO 3.58 K/mm3 (1.96-9.15); NEUTROPHILS PERCENT AUTO 60 % (41-73); RDW Coefficient Variation 17.5 % (11.7-14.2); Red Blood Cell Count 2.43 M/mm3 (3.80-5.20); White Blood Cell Count 5.93 K/mm3 (4.00-11.30)
[2018-03-14 16:20] LABS: Mean Platelet Volume 11.2 fL (9.1-12.4)
[2018-03-14 16:23] LABS: Platelet Count 45 K/mm3 (150-400)
[2018-03-14 16:33] LABS: Albumin, Blood 1.5 g/dL (3.4-5.0); Albumin/Globulin Ratio 0.3 (0.8-1.8); Bilirubin, Total 0.4 mg/dL (0.1-1.0); Bun/Creatinine Ratio 3.5 (12.0-20.0); Calcium, Blood 7.4 mg/dL (8.5-10.1); Creatinine, Blood 4.23 mg/dL (0.40-1.00); Globulin, Blood 4.7 g/dL (2.2-4.0); Potassium, Blood 3.5 mmol/L (3.5-5.5); Total Protein, Blood 6.2 g/dL (6.4-8.2)
[2018-03-28] MEDS ORDERED: FOLI1 PO (15:17)
[2018-03-28] MEDS ORDERED: MAGOXI400 PO (15:18)
[2018-03-28] MEDS ORDERED: POTA10T PO (15:18)
[2018-03-28] MEDS ORDERED: Vitamin D2000 UNIT PO (15:19)
[2018-03-28] MEDS ORDERED: MIDO5 PO (15:20)
== END 2018-03-14 18:12 | disposition home or self-care (01) ==
LOC: ER 15:03
PROVIDERS: Physician Assistant
DX: S72.012A Unspecified intracapsular fracture of left femur, initial encounter for closed fracture (principal); M79.10 Myalgia, unspecified site; M25.50 Pain in unspecified joint; E83.51 Hypocalcemia; E87.1 Hypo-osmolality and hyponatremia; E86.0 Dehydration; I12.9 Hypertensive chronic kidney disease with stage 1 through stage 4 chronic kidney disease, or unspecified chronic kidney disease; N18.9 Chronic kidney disease, unspecified; X58.XXXA Exposure to other specified factors, initial encounter; Z79.899 Other long term (current) drug therapy
CPT/HCPCS: 36415; 70450; 71046; 73502; 80047; 80053; 82140; 85014; 85025; 93005; 93010; 96365; 99284-25; J0610

== ENCOUNTER 2018-03-15 15:36 | Inpatient (IN) | payer MEDICARE, OTHER ==
[~2018-03-15] VITALS: Ht 165.1 cm; Wt 53.1 kg
[2018-03-15 17:01] LABS: BASOPHILS ABSOLUTE AUTO 0.04 K/mm3 (0.00-0.23); BASOPHILS PERCENT AUTO 1 % (0-2); EOSINOPHILS ABSOLUTE AUTO 0.04 K/mm3 (0.00-0.68); EOSINOPHILS PERCENT AUTO 1 % (0-6); Hematocrit 27.9 % (33.0-51.0); Hemoglobin 9.5 g/dL (11.5-16.0); IMMATURE GRAN ABSOLUTE AUTO 0.02 K/mm3 (0.00-0.10); IMMATURE GRAN PERCENT AUTO 0 % (0-1); LYMPHOCYTES ABSOLUTE AUTO 1.47 K/mm3 (0.84-5.20); LYMPHOCYTES PERCENT AUTO 23 % (21-46); MONOCYTES ABSOLUTE AUTO 0.65 K/mm3 (0.16-1.47); MONOCYTES PERCENT AUTO 10 % (4-13); Mean Corpuscular HGB 36.1 pg (26.0-34.0); Mean Corpuscular HGB Conc 34.1 g/dL (31.5-36.5); Mean Corpuscular Volume 106 fL (80-100); Mean Platelet Volume 9.3 fL (9.1-12.4); NEUTROPHILS PERCENT AUTO 66 % (41-73); Platelet Count 82 K/mm3 (150-400); RDW Coefficient Variation 17.4 % (11.7-14.2); RDW Standard Deviation 68.8 fL (35.1-46.3); Red Blood Cell Count 2.63 M/mm3 (3.80-5.20); White Blood Cell Count 6.42 K/mm3 (4.00-11.30)
[2018-03-15 17:37] LABS: Albumin, Blood 1.5 g/dL (3.4-5.0); Calcium, Blood 7.6 mg/dL (8.5-10.1); Potassium, Blood 3.5 mmol/L (3.5-5.5)
[2018-03-15 17:40] LABS: Magnesium, Blood 1.6 mg/dL (1.6-2.4); Phosphorus, Blood 2.2 mg/dL (2.5-4.9)
[2018-03-15 17:45] LABS: Albumin/Globulin Ratio 0.3 (0.8-1.8); Bilirubin, Total 0.5 mg/dL (0.1-1.0); Bun/Creatinine Ratio 4.1 (12.0-20.0); Creatinine, Blood 4.87 mg/dL (0.40-1.00); Globulin, Blood 4.8 g/dL (2.2-4.0); Total Protein, Blood 6.3 g/dL (6.4-8.2)
[2018-03-15 18:52] LABS: International Normalized Ratio 1.12; Prothrombin Time Results 11.5 Sec (9.7-11.5)
[2018-03-16 00:36] LABS: Source, Urine Catheter
[2018-03-16 00:38] LABS: Bilirubin, Urine Neg (Neg); Blood, Urine 5+ (Neg); Glucose Qualitative, Urine Neg (Neg); Ketones, Urine Neg (Neg); Leukocyte Esterase, Urine 3+ (Neg); Nitrite, Urine Neg (Neg); Protein, Urine 3+ (Neg); Urobilinogen, Urine NORM (Normal)
[2018-03-16 00:43] LABS: Appearance, Urine Turbid (Clear); Color, Urine Yellow (P-Yellow)
[2018-03-16 00:44] LABS: Bacteria Many /hpf; Red Blood Cells, Urine 0-2 /hpf (0-2); Squamous Epithelial Cells Few /hpf (Few); White Blood Cells, Urine TNTC /hpf (0-5)
[2018-03-16 11:44] LABS: Hematocrit 29.3 % (33.0-51.0); Hemoglobin 9.9 g/dL (11.5-16.0); Mean Corpuscular HGB 35.9 pg (26.0-34.0); Mean Corpuscular HGB Conc 33.8 g/dL (31.5-36.5); Mean Corpuscular Volume 106 fL (80-100); Mean Platelet Volume 9.6 fL (9.1-12.4); Platelet Count 77 K/mm3 (150-400); RDW Coefficient Variation 17.2 % (11.7-14.2); RDW Standard Deviation 67.7 fL (35.1-46.3); Red Blood Cell Count 2.76 M/mm3 (3.80-5.20); White Blood Cell Count 6.23 K/mm3 (4.00-11.30)
[2018-03-16 12:25] LABS: Calcium, Blood 7.6 mg/dL (8.5-10.1); Creatinine, Blood 5.22 mg/dL (0.40-1.00); Magnesium, Blood 1.6 mg/dL (1.6-2.4); Potassium, Blood 3.8 mmol/L (3.5-5.5)
[2018-03-17 05:21] LABS: BASOPHILS PERCENT AUTO 0 % (0-2); EOSINOPHILS PERCENT AUTO 0 % (0-6); Hematocrit 23.1 % (33.0-51.0); Hemoglobin 7.6 g/dL (11.5-16.0); IMMATURE GRAN ABSOLUTE AUTO 0.02 K/mm3 (0.00-0.10); IMMATURE GRAN PERCENT AUTO 1 % (0-1); LYMPHOCYTES PERCENT AUTO 8 % (21-46); MONOCYTES ABSOLUTE AUTO 0.24 K/mm3 (0.16-1.47); MONOCYTES PERCENT AUTO 7 % (4-13); Mean Corpuscular HGB 35.8 pg (26.0-34.0); Mean Corpuscular HGB Conc 32.9 g/dL (31.5-36.5); Mean Platelet Volume 9.9 fL (9.1-12.4); NEUTROPHILS ABSOLUTE AUTO 3.11 K/mm3 (1.96-9.15); NEUTROPHILS PERCENT AUTO 85 % (41-73); RDW Coefficient Variation 16.9 % (11.7-14.2); RDW Standard Deviation 68.4 fL (35.1-46.3); Red Blood Cell Count 2.12 M/mm3 (3.80-5.20); White Blood Cell Count 3.67 K/mm3 (4.00-11.30)
[2018-03-17 05:27] LABS: Mean Corpuscular Volume 109 fL (80-100)
[2018-03-17 05:33] LABS: Platelet Count 38 K/mm3 (150-400)
[2018-03-17 05:52] LABS: Albumin, Blood 1.5 g/dL (3.4-5.0); Anion Gap 16 mmol/L (6-16); Blood Urea Nitrogen 26 mg/dL (8-24); Bun/Creatinine Ratio 4.9 (12.0-20.0); CO2, Blood 24 mmol/L (21-32); Calcium, Blood 6.9 mg/dL (8.5-10.1); Chloride, Blood 84 mmol/L (98-108); Glomerular Filtration Rate 9 (60-); Glucose, Blood 157 mg/dL (70-99); Magnesium, Blood 1.7 mg/dL (1.6-2.4); Phosphorus, Blood 3.8 mg/dL (2.5-4.9); Potassium, Blood 3.6 mmol/L (3.5-5.5); Sodium, Blood 124 mmol/L (136-145)
[2018-03-18 04:55] LABS: BASOPHILS PERCENT AUTO 0 % (0-2); EOSINOPHILS PERCENT AUTO 0 % (0-6); Hematocrit 27.7 % (33.0-51.0); Hemoglobin 9.3 g/dL (11.5-16.0); IMMATURE GRAN ABSOLUTE AUTO 0.02 K/mm3 (0.00-0.10); IMMATURE GRAN PERCENT AUTO 0 % (0-1); LYMPHOCYTES ABSOLUTE AUTO 0.71 K/mm3 (0.84-5.20); LYMPHOCYTES PERCENT AUTO 15 % (21-46); MONOCYTES ABSOLUTE AUTO 0.41 K/mm3 (0.16-1.47); MONOCYTES PERCENT AUTO 9 % (4-13); Mean Corpuscular HGB 34.2 pg (26.0-34.0); Mean Corpuscular HGB Conc 33.6 g/dL (31.5-36.5); NEUTROPHILS ABSOLUTE AUTO 3.56 K/mm3 (1.96-9.15); NEUTROPHILS PERCENT AUTO 76 % (41-73); RDW Coefficient Variation 17.7 % (11.7-14.2); RDW Standard Deviation 66.1 fL (35.1-46.3); Red Blood Cell Count 2.72 M/mm3 (3.80-5.20)
[2018-03-18 04:59] LABS: Mean Corpuscular Volume 102 fL (80-100)
[2018-03-18 05:01] LABS: Platelet Count 46 K/mm3 (150-400)
[2018-03-18 05:12] LABS: Albumin, Blood 1.4 g/dL (3.4-5.0); Anion Gap 11 mmol/L (6-16); Blood Urea Nitrogen 21 mg/dL (8-24); Bun/Creatinine Ratio 5.1 (12.0-20.0); CO2, Blood 29 mmol/L (21-32); Calcium, Blood 7.2 mg/dL (8.5-10.1); Chloride, Blood 91 mmol/L (98-108); Creatinine, Blood 4.12 mg/dL (0.40-1.00); Glomerular Filtration Rate 12 (60-); Glucose, Blood 109 mg/dL (70-99); Magnesium, Blood 1.5 mg/dL (1.6-2.4); Phosphorus, Blood 1.8 mg/dL (2.5-4.9); Potassium, Blood 3.8 mmol/L (3.5-5.5); Sodium, Blood 131 mmol/L (136-145)
[2018-03-18] MEDS ORDERED: OXYC5 PO (13:32)
[2018-03-18] MEDS ORDERED: DOCU100 PO (13:33)
[2018-03-28] MEDS ORDERED: FOLI1 PO (15:17)
[2018-03-28] MEDS ORDERED: MAGOXI400 PO (15:18)
[2018-03-28] MEDS ORDERED: POTA10T PO (15:18)
[2018-03-28] MEDS ORDERED: Vitamin D2000 UNIT PO (15:19)
[2018-03-28] MEDS ORDERED: MIDO5 PO (15:20)
== END 2018-03-18 13:45 | disposition home or self-care (01) | DRG 480 ==
LOC: ER 15:36 → SURS 16:58
PROVIDERS: Emergency Medicine; Internal Medicine; Internal Medicine Nephrology; Nurse Practitioner Acute Care; Orthopaedic Surgery; ADMIT Internal Medicine
PROC: 0QS734Z Reposition Left Upper Femur with Internal Fixation Device, Percutaneous Approach (ICD-10-PCS; principal; 2018-03-16 12:30)
PROC: 5A1D70Z Performance of Urinary Filtration, Intermittent, Less than 6 Hours Per Day (ICD-10-PCS; 2018-03-17)
DX: S72.002A Fracture of unspecified part of neck of left femur, initial encounter for closed fracture (principal); N18.6 End stage renal disease; N25.81 Secondary hyperparathyroidism of renal origin; E87.1 Hypo-osmolality and hyponatremia; I12.0 Hypertensive chronic kidney disease with stage 5 chronic kidney disease or end stage renal disease; K70.31 Alcoholic cirrhosis of liver with ascites; Z99.2 Dependence on renal dialysis; D69.6 Thrombocytopenia, unspecified; D63.1 Anemia in chronic kidney disease; E86.9 Volume depletion, unspecified; Z66 Do not resuscitate; E83.39 Other disorders of phosphorus metabolism
CPT/HCPCS: 36415; 36430; 70450; 71046; 73502; 76705; 80048; 80053; 80069; 81001; 82140; 83735; 84100; 85014; 85018; 85025; 85027; 85610; 86850; 86900; 86901; 86923; 87077; 87086; 87186; 93005; 93010; 96365; 96374; 96376; 97110; 97162; 97530; 99284-25; C1713; C1769; J0610; J0690; J0696; J0881; J1100; J1170; J2060; J2250; J2370; J2405; J3010; J3475; J7030; J7060; P9016

== ENCOUNTER 2018-03-21 01:47 | Inpatient (IN) | payer MEDICARE, OTHER ==
[~2018-03-21] VITALS: Ht 165.1 cm; Wt 56.7 kg
[~2018-03-21 01:47] MED LIST changes: +DOCU100 PO; +OXYC5 PO
[2018-03-21 02:29] LABS: Source, Urine Catheter
[2018-03-21 02:41] LABS: Blood, Urine 3+ (Neg); Glucose Qualitative, Urine Neg (Neg); Ketones, Urine 1+ (Neg); Leukocyte Esterase, Urine 3+ (Neg); Nitrite, Urine Neg (Neg); Protein, Urine 2+ (Neg); Urobilinogen, Urine NORM (Normal)
[2018-03-21 02:43] LABS: Appearance, Urine Cloudy (Clear); Bilirubin, Urine 1+ (Neg); Color, Urine Yellow (P-Yellow)
[2018-03-21 02:48] LABS: Bacteria Mod /hpf; Squamous Epithelial Cells Not Seen /hpf (Few); White Blood Cells, Urine TNTC /hpf (0-5); Yeast/Fungi Urine Few /hpf
[2018-03-21 03:45] LABS: BASOPHILS ABSOLUTE AUTO 0.04 K/mm3 (0.00-0.23); BASOPHILS PERCENT AUTO 0 % (0-2); EOSINOPHILS ABSOLUTE AUTO 0.06 K/mm3 (0.00-0.68); EOSINOPHILS PERCENT AUTO 1 % (0-6); Hematocrit 34.3 % (33.0-51.0); Hemoglobin 11.2 g/dL (11.5-16.0); IMMATURE GRAN ABSOLUTE AUTO 0.07 K/mm3 (0.00-0.10); IMMATURE GRAN PERCENT AUTO 1 % (0-1); LYMPHOCYTES ABSOLUTE AUTO 0.87 K/mm3 (0.84-5.20); LYMPHOCYTES PERCENT AUTO 7 % (21-46); MONOCYTES ABSOLUTE AUTO 0.77 K/mm3 (0.16-1.47); MONOCYTES PERCENT AUTO 6 % (4-13); Mean Corpuscular HGB 34.8 pg (26.0-34.0); Mean Corpuscular HGB Conc 32.7 g/dL (31.5-36.5); Mean Platelet Volume 9.5 fL (9.1-12.4); NEUTROPHILS ABSOLUTE AUTO 10.75 K/mm3 (1.96-9.15); NEUTROPHILS PERCENT AUTO 86 % (41-73); Platelet Count 68 K/mm3 (150-400); RDW Coefficient Variation 17.6 % (11.7-14.2); RDW Standard Deviation 69.6 fL (35.1-46.3); Red Blood Cell Count 3.22 M/mm3 (3.80-5.20); White Blood Cell Count 12.56 K/mm3 (4.00-11.30)
[2018-03-21 03:46] LABS: Mean Corpuscular Volume 107 fL (80-100)
[2018-03-21 03:57] LABS: International Normalized Ratio 1.17; Prothrombin Time Results 12.2 Sec (9.7-11.5)
[2018-03-21 04:04] LABS: Magnesium, Blood 1.7 mg/dL (1.6-2.4); Troponin I <0.015 ng/mL (0.000-0.040)
[2018-03-21 04:14] LABS: Alanine Aminotransfer (ALT/SGP <6 U/L (12-78); Albumin, Blood 1.5 g/dL (3.4-5.0); Albumin/Globulin Ratio 0.3 (0.8-1.8); Alk Phos 291 U/L (50-136); Anion Gap 11 mmol/L (6-16); Aspartate Aminotrans (AST/SGOT 33 U/L (12-37); Bilirubin, Total 0.4 mg/dL (0.1-1.0); Blood Urea Nitrogen 14 mg/dL (8-24); Bun/Creatinine Ratio 3.3 (12.0-20.0); CO2, Blood 28 mmol/L (21-32); Calcium, Blood 7.4 mg/dL (8.5-10.1); Chloride, Blood 94 mmol/L (98-108); Creatinine, Blood 4.27 mg/dL (0.40-1.00); Globulin, Blood 4.4 g/dL (2.2-4.0); Glomerular Filtration Rate 11 (60-); Glucose, Blood 116 mg/dL (70-99); Potassium, Blood 3.4 mmol/L (3.5-5.5); Sodium, Blood 133 mmol/L (136-145); Total Protein, Blood 5.9 g/dL (6.4-8.2)
--- NOTE | 2018-03-21 07:30 | NUR ---
ADMISSION: REPORT RECIEVED FROM ED RN AT ABOUT 0455. PT TO UNIT AT 0505. UPON ASSESSMENT PT STATES SHE IS IN EXTREME PAIN RATES 10/10 AND IS CALLING OUT, AND HOLDING ONTO L HIP. [facility], PT CONTINUED TO CALL OUT, PT AND REFUSED ANY MOVEMENT OF L HIP. PULSES PALPABLE, PT ABLE TO WIGGLE TOES AND DENIES ANY N/T, JUST STATES "PLEASE MAKE THE PAIN GO AWAY" PT CRYING OUT AND UNABLE TO COMPLETE PT HISTORY AT THIS TIME. PT ORIENTED TO ROOM, INSTURUCTED ABOUT CALL LIGHT. WILL MEDICATE FOR PAIN PER EMAR
--- NOTE | 2018-03-21 07:37 | NUR ---
PT GIVEN IV PAIN MEDICATION AND ANTIVAN FOR ANXIETY AND PT DROWSY AND RR DECREASED AT ABOUT 0520, O2 SATS 86% ON RA, 2L O2 APPLIED, AND SATS INCREASED TO 100% PT AWAKENED TO VOICE AND ORIENTED, BUT FALLS ASLEEP EASILY AND BREATHING SHALLOW. RR AT ABOUT 8-10. NURSING SUPERVISER, Diana RING NOTIFIED, AND IN ROOM TO ASSESS AND WATCH PT WHILE THIS RN NOTIFIED DR. CRUZ. DR. CRUZ ORDERED NARCAN 0.4MG PRN ONCE. THIS RN AND SUPERVISER CONTINUED TO MONITOR PT STATUS WITH FREQUENT VS, RR INCREASED TO 10 AND BREATHING BECAME LESS SHALLOW. PT CONTINUED TO AWAKEN TO VOICE AND ANSWER QUESTIONS. PT SAT UP RIGHT IN BED TO MAXIMIZE BREATHING AND AND ORDER FOR CONTINUIOUS OXIMETRTY ADDED. PT NOT GIVEN NARCAN, HER RR INCREASED TO 12 AT 0634 AND SP02/LOC REMAINED STABLE. WILL CONTINUE TO MONITOR PT STATUS
--- NOTE | 2018-03-21 10:28 | NUR ---
to radiology via karyn for paracentesis
--- NOTE | 2018-03-21 10:40 | NUR ---
contacted by don mcleod rn that dr thornton should be notified via phone of consult on this patient. contacted dr thornton and notified of consult
--- NOTE | 2018-03-21 11:27 | NUR ---
BANAID CLEAN DRY AND INTACT TO RLQ PATIENT DENIES ANY [id number] RETURNED TO ROOM ROM PARACENTESIS
[2018-03-21 11:46] LABS: Magnesium, Blood 1.7 mg/dL (1.6-2.4); Potassium, Blood 3.6 mmol/L (3.5-5.5)
--- NOTE | 2018-03-21 16:17 | NUR ---
1500 DIALYSIS INITIATED AT BEDSIDE. PATIENT ASSISTED TO CALL HER TO LET HIM KNOW AT THIS TIME THERE IS NO AVAILABLE BED FOR HER TO TRANSFER TO
--- NOTE | 2018-03-21 17:53 | NUR ---
PATIENT TEARFUL AT TIMES. PATIENT ORIENTED BUT HAS DIFFICULTY REMEMBEING HOW TO DIAL PHONE AND REMEMBER HER HUSBANDS PHONE NUMBER. LEFT HIP PAIN WHICH INCREASES WITH MOVEMENT. LEFT LEG EXTERNALLY ROTATED, BILAT FEET WARM WITH PEDAL PULSES PRESENT. PATIENT AWARE THAT SHE WILL BE TRANSFERED TO [facility] WHEN BED AVAILABLE SHENG BATES RN
--- NOTE | 2018-03-21 18:54 | NUR ---
NOTIFIED THAT BED AVAILABLE AT [facility]. NOTIFIED PATIENT AND ASSISTED PATIENT TO CALL HER . REPORT CALLED TO LUX AT [facility]. PATIENT MEDICATED WITH DILAUDID 1 MG IV. [facility] CONTACTED FOR TRANSPORT.
--- NOTE | 2018-03-21 19:10 | NUR ---
[facility] here, patient transferred to [facility]. report given and patient left via [facility]
[2018-03-28] MEDS ORDERED: FOLI1 PO (15:17)
[2018-03-28] MEDS ORDERED: POTA10T PO (15:18)
[2018-03-28] MEDS ORDERED: MAGOXI400 PO (15:18)
[2018-03-28] MEDS ORDERED: Vitamin D2000 UNIT PO (15:19)
[2018-03-28] MEDS ORDERED: MIDO5 PO (15:20)
== END 2018-03-21 19:13 | disposition short-term general hospital (02) | DRG 535 ==
LOC: ER 01:47 → SURS 03:33 → ER 03:33 → SURS 19:13
PROVIDERS: Emergency Medicine; Internal Medicine Nephrology; ADMIT Hospitalist
PROC: 5A1D70Z Performance of Urinary Filtration, Intermittent, Less than 6 Hours Per Day (ICD-10-PCS; principal; 2018-03-21)
PROC: 0W9G3ZZ Drainage of Peritoneal Cavity, Percutaneous Approach (ICD-10-PCS; 2018-03-21)
DX: S72.22XA Displaced subtrochanteric fracture of left femur, initial encounter for closed fracture (principal); N18.6 End stage renal disease; N25.81 Secondary hyperparathyroidism of renal origin; E87.1 Hypo-osmolality and hyponatremia; K70.31 Alcoholic cirrhosis of liver with ascites; D69.6 Thrombocytopenia, unspecified; F32.9 Major depressive disorder, single episode, unspecified; I95.89 Other hypotension; F10.10 Alcohol abuse, uncomplicated; D63.1 Anemia in chronic kidney disease; E87.6 Hypokalemia; N81.0 Urethrocele; M85.80 Other specified disorders of bone density and structure, unspecified site
CPT/HCPCS: 20611; 36415; 49083; 51702; 73502; 80053; 81001; 83735; 84132; 84484; 85025; 85610; 85730; 87086; 87106; 93005; 93010; 94762; 96374; 96376; 99285-25; J1170; J2060; J3010

== ENCOUNTER 2018-04-06 00:27 | Day surgery (SDC) | payer MEDICARE, OTHER ==
[~2018-04-06 00:27] MED LIST changes: +MAGOXI400 PO; +POTA10T PO
== END 2018-04-06 22:47 | disposition home or self-care (01) ==
LOC: US 00:27
DX: K70.31 Alcoholic cirrhosis of liver with ascites (principal)
CPT/HCPCS: 76705

== ENCOUNTER 2018-04-20 13:58 | Day surgery (SDC) | payer MEDICARE, OTHER | END 2018-04-20 22:37 | disposition home or self-care (01) | LOC: US 13:58 | DX: K70.31 Alcoholic cirrhosis of liver with ascites (principal) | CPT/HCPCS: 76705 ==

== ENCOUNTER 2018-05-11 13:43 | Day surgery (SDC) | payer MEDICARE, OTHER | END 2018-05-11 22:46 | disposition home or self-care (01) | LOC: US 13:43 | DX: K70.31 Alcoholic cirrhosis of liver with ascites (principal) | CPT/HCPCS: 76705 ==

== ENCOUNTER → 2018-05-11 | Outpatient (CLI) | payer MEDICARE, OTHER ==
[2018-05-12 09:51] LABS: C DIFFICILE BY DNA AMP Positive (Negative)
== END | disposition home or self-care (01) ==
LOC: LAB 17:49 → LAB SHORT 17:49
PROVIDERS: Internal Medicine Nephrology
DX: R19.7 Diarrhea, unspecified (principal)
CPT/HCPCS: 87324; 87493

== ENCOUNTER → 2018-05-24 | Outpatient (CLI) | payer MEDICARE, OTHER ==
[2018-05-24 07:50] LABS: BASOPHILS ABSOLUTE AUTO 0.02 K/mm3 (0.00-0.23); BASOPHILS PERCENT AUTO 1 % (0-2); EOSINOPHILS ABSOLUTE AUTO 0.09 K/mm3 (0.00-0.68); EOSINOPHILS PERCENT AUTO 3 % (0-6); Hematocrit 30.9 % (33.0-51.0); Hemoglobin 10.1 g/dL (11.5-16.0); IMMATURE GRAN ABSOLUTE AUTO 0.01 K/mm3 (0.00-0.10); IMMATURE GRAN PERCENT AUTO 0 % (0-1); LYMPHOCYTES ABSOLUTE AUTO 0.88 K/mm3 (0.84-5.20); LYMPHOCYTES PERCENT AUTO 31 % (21-46); MONOCYTES PERCENT AUTO 14 % (4-13); Mean Corpuscular HGB 33.3 pg (26.0-34.0); Mean Corpuscular HGB Conc 32.7 g/dL (31.5-36.5); Mean Corpuscular Volume 102 fL (80-100); Mean Platelet Volume 9.6 fL (9.1-12.4); NEUTROPHILS PERCENT AUTO 50 % (41-73); Platelet Count 113 K/mm3 (150-400); RDW Coefficient Variation 14.5 % (11.7-14.2); RDW Standard Deviation 54.1 fL (35.1-46.3); Red Blood Cell Count 3.03 M/mm3 (3.80-5.20)
[2018-05-24 08:11] LABS: International Normalized Ratio 1.27; Prothrombin Time Results 13.2 Sec (9.7-11.5)
== END | disposition home or self-care (01) ==
LOC: LAB DAV 06:00
PROVIDERS: Internal Medicine Nephrology
DX: N18.6 End stage renal disease (principal)
CPT/HCPCS: 85025; 85610; 85730

== ENCOUNTER 2018-06-01 13:37 | Day surgery (SDC) | payer MEDICARE, OTHER | END 2018-06-01 23:08 | disposition home or self-care (01) | LOC: US 13:37 | DX: K70.31 Alcoholic cirrhosis of liver with ascites (principal) | CPT/HCPCS: 76705 ==

== ENCOUNTER 2018-11-16 10:54 | Emergency (ER) | payer MEDICARE, OTHER ==
[~2018-11-16] VITALS: Ht 165.1 cm; Wt 59.0 kg
[2018-11-16 11:14] LABS: Source, Urine Clean Catch
[2018-11-16 11:20] LABS: Blood, Urine 4+ (Neg); Glucose Qualitative, Urine Neg (Neg); Ketones, Urine Neg (Neg); Leukocyte Esterase, Urine 3+ (Neg); Nitrite, Urine Pos (Neg); Protein, Urine 2+ (Neg); Urobilinogen, Urine 1+ (Normal)
[2018-11-16 11:27] LABS: Appearance, Urine Cloudy (Clear); Bilirubin, Urine 1+ (Neg); Color, Urine Yellow (P-Yellow)
[2018-11-16 11:28] LABS: White Blood Cells, Urine TNTC /hpf (0-5)
[2018-11-16 11:29] LABS: Bacteria Many /hpf; Red Blood Cells, Urine 25-50 /hpf (0-2); Squamous Epithelial Cells Few /hpf (Few)
[2018-11-16] MEDS ORDERED: CEFD300 PO (11:42)
== END 2018-11-16 12:00 | disposition home or self-care (01) ==
LOC: ER 10:54
PROVIDERS: Physician Assistant
DX: N39.0 Urinary tract infection, site not specified (principal); Z79.899 Other long term (current) drug therapy; D64.9 Anemia, unspecified; N18.6 End stage renal disease
CPT/HCPCS: 81001; 87077; 87086; 87186; 99283

== ENCOUNTER 2018-11-19 09:50 | Observation (INO) | payer MEDICARE, OTHER ==
[~2018-11-19] VITALS: Ht 165.1 cm; Wt 63.1 kg
[~2018-11-19 09:50] MED LIST changes: +CEFD300 PO
[2018-11-19 10:52] LABS: BASOPHILS PERCENT AUTO 0 % (0-2); EOSINOPHILS ABSOLUTE AUTO 0.01 K/mm3 (0.00-0.68); EOSINOPHILS PERCENT AUTO 0 % (0-6); IMMATURE GRAN ABSOLUTE AUTO 0.03 K/mm3 (0.00-0.10); IMMATURE GRAN PERCENT AUTO 1 % (0-1); LYMPHOCYTES ABSOLUTE AUTO 0.69 K/mm3 (0.84-5.20); LYMPHOCYTES PERCENT AUTO 14 % (21-46); MONOCYTES ABSOLUTE AUTO 0.48 K/mm3 (0.16-1.47); MONOCYTES PERCENT AUTO 10 % (4-13); Mean Corpuscular HGB 35.1 pg (26.0-34.0); Mean Corpuscular HGB Conc 33.8 g/dL (31.5-36.5); Mean Corpuscular Volume 104 fL (80-100); Mean Platelet Volume 8.8 fL (9.1-12.4); NEUTROPHILS PERCENT AUTO 76 % (41-73); Platelet Count 129 K/mm3 (150-400); RDW Coefficient Variation 20.2 % (11.7-14.2); RDW Standard Deviation 62.7 fL (35.1-46.3); Red Blood Cell Count 1.31 M/mm3 (3.80-5.20); White Blood Cell Count 5.01 K/mm3 (4.00-11.30)
[2018-11-19 10:57] LABS: Hematocrit 13.6 % (33.0-51.0); Hemoglobin 4.6 g/dL (11.5-16.0)
[2018-11-19 11:16] LABS: Albumin, Blood 2.9 g/dL (3.4-5.0); Albumin/Globulin Ratio 0.6 (0.8-1.8); Bilirubin, Total 1.7 mg/dL (0.1-1.0); Bun/Creatinine Ratio 8.5 (12.0-20.0); Creatinine, Blood 2.12 mg/dL (0.40-1.00); Globulin, Blood 4.5 g/dL (2.2-4.0); Potassium, Blood 3.6 mmol/L (3.5-5.5); Total Protein, Blood 7.4 g/dL (6.4-8.2)
[2018-11-19] MEDS ORDERED: Fludrocortison0.1 MG PO (16:17)
[2018-11-19] MEDS ORDERED: SPIR25 PO (16:17)
[2018-11-19 17:37] LABS: Percent Saturation 95.9 % (15.0-50.0)
[2018-11-19 18:10] LABS: Hematocrit 21.1 % (33.0-51.0); Hemoglobin 7.1 g/dL (11.5-16.0)
[2018-11-19 18:24] LABS: International Normalized Ratio 1.19; Prothrombin Time Results 12.4 Sec (9.7-11.5)
--- NOTE | 2018-11-19 19:16 | NUR ---
RECIEVED TELEPHONE REPORT FROM ED RN- PASSED REPORT ON TO NIGHT RN JACE GARNER ARRIVED DURING SHIFT CHANGE AND REPORT.
[2018-11-19 22:13] LABS: Hematocrit 21.5 % (33.0-51.0)
--- NOTE | 2018-11-20 03:28 | NUR ---
SHIFT SUMMARY PATIENT HAD NO ACUTE CHANGES OBSERVED THIS SHIFT. Hgb 7.1 AND 7 LAST TWO LAB DRAWS THIS SHIFT. PATIENT AXOX 3 AND ONE ASSIST TO BSC. TAKES MEDICATION WHOLE WITH WATER. DENIES PAIN, SOB, AND N/V. VSS/AFEBRILE. PIV REMAINS INTACT. FINAL CLEANER REPORTS NSR 91. IV FERRLECIT INFUSED. CARDIAC DIET. PATIENT REPORTED SHE WAS HUNGRY AND MISSED DINNER TRAY. PATIENT WAS ABLE TO EAT FROM PANTRY SELECTION. COOPERATIVE WITH CARE. CALL LIGHT IN REACH. BED IN LOWEST POSITION. WILL CONTINUE TO MONITOR UNTIL DAY SHIFT NURSE ASSUMES CARE.
[2018-11-20 04:45] LABS: Hematocrit 20.1 % (33.0-51.0); Hemoglobin 6.4 g/dL (11.5-16.0); Mean Corpuscular HGB 32.7 pg (26.0-34.0); Mean Corpuscular HGB Conc 31.8 g/dL (31.5-36.5); Mean Corpuscular Volume 103 fL (80-100); Mean Platelet Volume 8.9 fL (9.1-12.4); Platelet Count 95 K/mm3 (150-400); RDW Coefficient Variation 18.7 % (11.7-14.2); RDW Standard Deviation 53.1 fL (35.1-46.3); Red Blood Cell Count 1.96 M/mm3 (3.80-5.20); White Blood Cell Count 4.15 K/mm3 (4.00-11.30)
--- NOTE | 2018-11-20 14:10 | NUR ---
CALLED IMAGING- MP XRAY RESULT NOT IN HOWEVER PAIN IN THE LEFT HIP SEEMS TO BE GETTING WORSE, IN ORDER TO PROVIDE THE BEST PAIN MANAGEMENT.
--- NOTE | 2018-11-20 14:39 | NUR ---
PT SPOUSE BROUGHT IN OTC PYRYDIUM AND GAVE THE PT THIS MEDICATION TO TAKE FOIR HER URINARY PAIN. PT STATED SHE NEEDS HER ANTIBIOTICS FROM HOME WELL FOR HER UTI. PT DID NOT C/O URINARY PAIN ON MORNING ASSESSMENT. PT TOOK A DOSE OF THIS MEDICINE PRIOR TO STAFF DISCOVERY. SPOUSE TOOK THE MED HOME WITH HIM.
[2018-11-20 18:38] LABS: Hematocrit 24.5 % (33.0-51.0); Hemoglobin 8.2 g/dL (11.5-16.0)
--- NOTE | 2018-11-20 19:25 | NUR ---
CALLED DR BOWEN PER HIS REQUEST WITH THE PT H&H RESULTS DR BOYRE.
--- NOTE | 2018-11-20 19:27 | NUR ---
SHIFT SUMMARY- PT AMBULATED WITH FWW IN THE GREENE WITH RN TO THE MIDDLE OF THE LOBBY BACK TO THE ROOM THEN TO THE END OF THE GREENE BY ROOM 13, UNCERTAIN OF THE DISTANCVE MEASUREMENT. PT ALERT AND ORIENTED, C/O PAIN IN THE NECK, HEATING PAD PROVIDED WELL PRN TYLENOL. PASSED ON IN BEDSIDE REPORT TO NIGHT GILBERTO GARNER.
--- NOTE | 2018-11-20 19:57 | NUR ---
SHIFT SUMMARY- PT RECIEVED AN ADDITIONAL UNIT OF BLOOD TODAY WELL DIALYSIS TODAY, PT HAD AN XRAY OF HER HIP TO R/O Fx. PT HAS C/O PAIN T/O THE SHIFT, AFTER RESULT FROM IMAGE CAME BACK STAFF BEGAN TAKING THE PT TO THE BATHROOM 1PA WITH A FWW. PT PAIN SEEMED TO IMPROVE AFTER ACTIVITY, DISTRACTION WORKED WELL.
[2018-11-20 20:05] LABS: Stool Occult Blood Guaiac 1 Neg (Neg)
--- NOTE | 2018-11-21 03:07 | NUR ---
SHIFT SUMMARY PATIENT HAD NO ACUTE CHANGE OBSERVED THIS SHIFT. AXOX 1 AND ONE ASSIST TO BR. SPOUSE PRESENT AT START OF SHIFT. DENIES PAIN, SOB, AND N/V. PIV REMAINS INTACT. SHOULDER JOINER REPORTS ST 104. PATIENT REPORTS HAVING DIALYSIS DURING THE DAY. VSS/AFEBRILE. COOPERATIVE WITH CARE. CALL LIGHT IN REACH. BED IN LOWEST POSITION. WILL CONTINUE TO MONITOR UNTIL DAY SHIFT NURSE ASSUMES CARE.
[2018-11-21 04:38] LABS: Hematocrit 22.7 % (33.0-51.0); Hemoglobin 7.8 g/dL (11.5-16.0)
[2018-11-21 04:55] LABS: Albumin, Blood 2.7 g/dL (3.4-5.0); Anion Gap 8 mmol/L (6-16); Blood Urea Nitrogen 14 mg/dL (8-24); Bun/Creatinine Ratio 6.4 (12.0-20.0); CO2, Blood 30 mmol/L (21-32); Calcium, Blood 7.9 mg/dL (8.5-10.1); Chloride, Blood 96 mmol/L (98-108); Glomerular Filtration Rate 24 (60-); Glucose, Blood 101 mg/dL (70-99); Magnesium, Blood 1.7 mg/dL (1.6-2.4); Phosphorus, Blood 2.3 mg/dL (2.5-4.9); Potassium, Blood 3.5 mmol/L (3.5-5.5); Sodium, Blood 134 mmol/L (136-145)
--- NOTE | 2018-11-21 12:59 | NUR ---
PATIENT DISCHARGE: PATIENT DISCHARGED TO HOME THIS SHIFT. MEDICATION RECONCILIATION COMPLETED; NO NEW MEDS TO REPORT. DISCHARGE EDUCATION COMPLETED WITH PATIENT AND FRIEND. PATIENT TRANSPORTED TO EXIT BY [facility] STAFF WITH WHEELCHAIR AT 1259. PATIENT DEPARTYED [facility] VIA PRIVATE AUTO.
== END 2018-11-21 13:07 | disposition home or self-care (01) ==
LOC: ER 09:50 → MEDS 09:51 → ENPENDDIS 11-21 11:51 → MEDS 11-21 13:07
PROVIDERS: Emergency Medicine; Internal Medicine Nephrology; Physician Assistant; ADMIT Hospitalist
DX: I12.0 Hypertensive chronic kidney disease with stage 5 chronic kidney disease or end stage renal disease (principal); N18.6 End stage renal disease; D63.1 Anemia in chronic kidney disease; D69.6 Thrombocytopenia, unspecified; I95.89 Other hypotension; F10.20 Alcohol dependence, uncomplicated; K70.30 Alcoholic cirrhosis of liver without ascites; Z79.899 Other long term (current) drug therapy
CPT/HCPCS: 36415; 36430; 73502; 80053; 80069; 80076; 82272; 82607; 82728; 82746; 83540; 83550; 83690; 83735; 85014; 85018; 85025; 85027; 85610; 86850; 86900; 86901; 86923; 93005; 93010; 96365; 96366; 96367; 96372; 96374; 96375; 96376; 99284-25; A9270; C9113; G0257; G0378; J0881; J2060; J2405; J2916; J7030; J7050; J7060; P9016

== ENCOUNTER 2018-12-29 09:26 | Emergency (ER) | payer MEDICARE, OTHER ==
[~2018-12-29] VITALS: Ht 165.1 cm; Wt 59.0 kg
[~2018-12-29 09:26] MED LIST changes: +Fludrocortison0.1 MG PO
[2018-12-29 11:22] LABS: BASOPHILS ABSOLUTE AUTO 0.03 K/mm3 (0.00-0.23); BASOPHILS PERCENT AUTO 1 % (0-2); EOSINOPHILS ABSOLUTE AUTO 0.07 K/mm3 (0.00-0.68); EOSINOPHILS PERCENT AUTO 3 % (0-6); Hematocrit 30.3 % (33.0-51.0); Hemoglobin 10.4 g/dL (11.5-16.0); Mean Corpuscular HGB 33.3 pg (26.0-34.0); Mean Corpuscular HGB Conc 34.3 g/dL (31.5-36.5); Mean Corpuscular Volume 97 fL (80-100); Mean Platelet Volume 9.3 fL (9.1-12.4); RDW Coefficient Variation 19.1 % (11.7-14.2); RDW Standard Deviation 67.9 fL (35.1-46.3); Red Blood Cell Count 3.12 M/mm3 (3.80-5.20); White Blood Cell Count 2.11 K/mm3 (4.00-11.30)
[2018-12-29 11:33] LABS: International Normalized Ratio 1.24; Prothrombin Time Results 12.9 Sec (9.7-11.5)
[2018-12-29 11:47] LABS: IMMATURE GRAN PERCENT AUTO 0 % (0-1); LYMPHOCYTES PERCENT AUTO 47 % (21-46); MONOCYTES ABSOLUTE AUTO 0.32 K/mm3 (0.16-1.47); MONOCYTES PERCENT AUTO 15 % (4-13); NEUTROPHILS ABSOLUTE AUTO 0.69 K/mm3 (1.96-9.15); NEUTROPHILS PERCENT AUTO 33 % (41-73)
[2018-12-29 11:48] LABS: Platelet Count 46 K/mm3 (150-400)
[2018-12-29 11:50] LABS: Albumin, Blood 2.6 g/dL (3.4-5.0); Albumin/Globulin Ratio 0.6 (0.8-1.8); Bilirubin, Total 0.6 mg/dL (0.1-1.0); Bun/Creatinine Ratio 2.8 (12.0-20.0); Calcium, Blood 7.8 mg/dL (8.5-10.1); Creatinine, Blood 3.63 mg/dL (0.40-1.00); Globulin, Blood 4.4 g/dL (2.2-4.0); Potassium, Blood 3.4 mmol/L (3.5-5.5)
== END 2018-12-29 12:45 | disposition home or self-care (01) ==
LOC: ER 09:26
PROVIDERS: Emergency Medicine
DX: T82.41XA Breakdown (mechanical) of vascular dialysis catheter, initial encounter (principal); N18.6 End stage renal disease; Z79.899 Other long term (current) drug therapy
CPT/HCPCS: 36415; 71045; 80053; 85025; 85610; 85730; 99284-25

== ENCOUNTER 2019-01-03 09:32 | Observation (INO) | payer MEDICARE, OTHER ==
[~2019-01-03] VITALS: Ht 165.1 cm; Wt 53.8 kg
[~2019-01-03 09:32] MED LIST changes: +MUPIROCIN15 GM TOP; +Midodrine HCl10 MG PO
[2019-01-03 11:04] LABS: BASOPHILS ABSOLUTE AUTO 0.01 K/mm3 (0.00-0.23); BASOPHILS PERCENT AUTO 0 % (0-2); EOSINOPHILS PERCENT AUTO 0 % (0-6); Hematocrit 30.8 % (33.0-51.0); Hemoglobin 10.6 g/dL (11.5-16.0); IMMATURE GRAN ABSOLUTE AUTO 0.01 K/mm3 (0.00-0.10); IMMATURE GRAN PERCENT AUTO 0 % (0-1); LYMPHOCYTES ABSOLUTE AUTO 0.37 K/mm3 (0.84-5.20); LYMPHOCYTES PERCENT AUTO 10 % (21-46); MONOCYTES ABSOLUTE AUTO 0.42 K/mm3 (0.16-1.47); MONOCYTES PERCENT AUTO 12 % (4-13); Mean Corpuscular HGB 33.9 pg (26.0-34.0); Mean Corpuscular HGB Conc 34.4 g/dL (31.5-36.5); Mean Platelet Volume 8.1 fL (9.1-12.4); NEUTROPHILS PERCENT AUTO 78 % (41-73); RDW Coefficient Variation 19.8 % (11.7-14.2); RDW Standard Deviation 71.3 fL (35.1-46.3); Red Blood Cell Count 3.13 M/mm3 (3.80-5.20); White Blood Cell Count 3.61 K/mm3 (4.00-11.30)
[2019-01-03 11:05] LABS: Calcium, Ionized (POC) 0.93 mmol/L (1.10-1.46); Chloride (POC) 85 mmol/L (98-108); Creatinine (POC) 6.2 mg/dL (0.6-1.0); Glucose (ISTAT POC) 121 mg/dL (70-99); Hemoglobin (POC) 11.6 g/dL (12.0-16.0); Potassium (POC) 3.7 mmol/L (3.5-5.5); Sodium (POC) 128 mmol/L (135-148); Total CO2 (POC) 32 mmol/L (21-32)
[2019-01-03 11:05] LABS: Mean Corpuscular Volume 98 fL (80-100)
[2019-01-03 11:07] LABS: Platelet Count 21 K/mm3 (150-400)
[2019-01-03 11:20] LABS: Albumin, Blood 3.1 g/dL (3.4-5.0); Albumin/Globulin Ratio 0.7 (0.8-1.8); Bilirubin, Total 1.6 mg/dL (0.1-1.0); Bun/Creatinine Ratio 4.4 (12.0-20.0); Calcium, Blood 8.4 mg/dL (8.5-10.1); Creatinine, Blood 5.51 mg/dL (0.40-1.00); Globulin, Blood 4.5 g/dL (2.2-4.0); Phosphorus, Blood 3.1 mg/dL (2.5-4.9); Potassium, Blood 3.7 mmol/L (3.5-5.5); Total Protein, Blood 7.6 g/dL (6.4-8.2)
[2019-01-03 12:27] LABS: International Normalized Ratio 1.29; Prothrombin Time Results 13.4 Sec (9.7-11.5)
--- NOTE | 2019-01-03 15:00 | NUR ---
PT ARRIVED TO ROOM APPROX. 1430 AND SETTLED IN TO BED. INDEPENDENT IN ROOM USING PERSONAL W/C. ANXIOUS ABOUT POSSIBLE PROCEDURE BEING COMPLETED TODAY AND GOING HOME AFTER DIALYSIS. CURRENTLY NPO.
--- NOTE | 2019-01-03 18:40 | NUR ---
SHIFT SUMMARY PT SITTING ON SIDE OF BED MOST OF AFTERNOON. DR. RODRIGUEZ IN TO SEE PT AND PLANS FOR PERMCATH PLACEMENT FOR EARLY A.M. AND THEN DIALYSIS AND THEN DISCHARGE HOME.
--- NOTE | 2019-01-04 04:16 | NUR ---
SHIFT SUMMARY NO ACUTE CHANGES, PT HAS RESTED FOR MOST OF THE NIGHT. PLAN IS FOR PERMACATH PLACEMENT TODAY. PT HAS BEEN NPO SINCE MIDNIGHT. VITALS STABLE, PT REPORTED SOME MILD NAUSEA AT THE START OF THE SHIFT, BUT DECLINED ANYTHING FOR IT. SHE ATE VERY LITTLE OF HER DINNER TRAY. PT HAS RESTED MOST OF THE NIGHT AND DENIES PAIN. UP WITH 1 PA ASSIST. ASSESSMENT UNCHANGED. WILL CONTINUE TO MONITOR AND REPORT TO ONCOMING RN.
[2019-01-04 04:55] LABS: Hematocrit 26.8 % (33.0-51.0); Mean Corpuscular HGB 33.7 pg (26.0-34.0); Mean Corpuscular HGB Conc 33.6 g/dL (31.5-36.5); Mean Corpuscular Volume 100 fL (80-100); Mean Platelet Volume 10.9 fL (9.1-12.4); RDW Standard Deviation 72.5 fL (35.1-46.3); Red Blood Cell Count 2.67 M/mm3 (3.80-5.20)
[2019-01-04 05:01] LABS: Platelet Count 35 K/mm3 (150-400)
[2019-01-04 05:19] LABS: Magnesium, Blood 1.6 mg/dL (1.6-2.4)
[2019-01-04 05:22] LABS: Albumin, Blood 2.7 g/dL (3.4-5.0); Anion Gap 9 mmol/L (6-16); Blood Urea Nitrogen 26 mg/dL (8-24); Bun/Creatinine Ratio 4.5 (12.0-20.0); CO2, Blood 32 mmol/L (21-32); Calcium, Blood 8.5 mg/dL (8.5-10.1); Chloride, Blood 90 mmol/L (98-108); Creatinine, Blood 5.75 mg/dL (0.40-1.00); Glomerular Filtration Rate 8 (60-); Glucose, Blood 103 mg/dL (70-99); Phosphorus, Blood 2.7 mg/dL (2.5-4.9); Potassium, Blood 3.3 mmol/L (3.5-5.5); Sodium, Blood 131 mmol/L (136-145)
--- NOTE | 2019-01-04 14:40 | NUR ---
PT TO [facility] FOR PERMCATH PLACEMENT. HAS RETURNED WITH MD IN ROOM. HD RN NOTIFIED OF PTS RETURN FOR DIALYSIS. PT TO DISCHARGE AFTER DIALYSIS. REPORT GIVEN TO DEV MACIAS.
[2019-01-04] MEDS ORDERED: Fludrocortison0.1 MG PO (16:38)
[2019-01-04] MEDS ORDERED: SPIR25 PO (16:38)
[2019-01-04] MEDS ORDERED: VITAMIN B-1100 MG PO (16:39)
--- NOTE | 2019-01-04 17:57 | NUR ---
Spiritual Care inital note: Manasa is known to me from previous hospitalizations. She is pleasant and open to gentle deputy chief counsel and encouragement. She is hopeful. Manasa has a strong marriage and a david in a loving God. Both of these bring her security and peace. She responded well to prayer and comfort through touch. No concerns presented. I will remain available.
--- NOTE | 2019-01-04 18:30 | NUR ---
DIALYSIS PT RECIEVED A NEW PERMA CATH TODAY. I CONNECTED THE MACHINES TO THE SINK AND STARTED THE MACHINES. AFTER ALITTLE BIT I NOTICED THAT THE SINK WAS OVERFLOWING. TURNED OFF MY MACHINES. THE MAINTANCE MAN FIXED THE SINK AND I STARTED THE MACHINES AGAIN. I NOTICIED THAT THE PT DIDN'T HAVE CAPS ON THE ENDS OF THE LUMENS. I CLEANED THEM REALLY WELL BEFORE HOOKING UP THE MACHINE. THE PT WAS EATING AFTER BEING NPO. AFTER SHE WAS DOWN, SHE SAID SHE HAD DIARRHEA AND NEEDED UP TO THE BR. I ASSISTED HER. AFTER CONNECTING HER THE TX. SHE SAID SHE HAD GO AGAIN. SHE HAD SOILED THE PAD. THE MECHANICAL INTERN AND I CLEANED HER UP. SHE WANT ABOUT SIX TIMES TOTAL. HER CATH SITE WAS BLEEDING. I CHANGED THE DRESSING ABOUT 3 TIME. THE LAST TIME USING MUCH MORE OF PRESSURE DRESSING THAN BEFORE. BP DROPPED TO THE 80,S. DCED TX 16 MIN EARLY. PT EXTREMELY FORGETFUL. KEPT TRYING TO GET UP TO BR, FORGETTING SHE WAS DIALYSIS.
--- NOTE | 2019-01-04 19:18 | NUR ---
ASSUMED CARE OF THE PT AROUND 1445 FROM OMID MACIAS, THE PT IS A/OX3, PLEASANT AND COOPERATIVE, THE PT WAS RECIEVING DIALYSIS AT THE TIME OF THE HAND OFF, AND TOLERATING IT WELL, TOWARD THE END OF DIALYSIS THE PTS NEWLY PLACED DIALYSIS CATHETER, STARTED TO BLEED AT THE INSERTION SITE, THE HELMET BINDER WAS UNABLE TO STOP THE BLEEDING DUE TO THE PTS LOW PLT COUNT, A CALL WAS PLACED TO DR. PEREZ, ORDERS WERE TO APPLY A PRESSURE DRSG TO THE AREA TO CONTROL THE BLEEDING AND IF IT CONTINUED TO BLEED TO GO AHEAD AND KEEP THE PT OVER NIGHT TO MONITOR, HOLD THE DISCHARGE, REPORT GIVEN TO THE NOC NURSE, CALL LIGHT IN REACH
--- NOTE | 2019-01-05 03:00 | NUR ---
SHIFT SUMMARY PT WAS GOING TO BE DC'D THEN PERMACATH STARTED BLEEDING. PT TO STAY OVERNIGHT AND DC RIGHT AWAY IN THE MORNING. NO BLEEDING OVERNIGHT, SAND BAG FOR EXTRA PRESSURE. DENIES SOB, NAUSEA, AND PAIN. CIWA NEGATIVE. PT DC IS COMPLETE.
[2019-01-05 05:36] LABS: Hematocrit 22.2 % (33.0-51.0); Hemoglobin 7.5 g/dL (11.5-16.0)
--- NOTE | 2019-01-05 05:50 | NUR ---
PT DID NOT WANT IV RESTARTED OVERNIGHT SINCE SHE WAS READY FOR DC AND IS BEING DC THIS AM. DID AGREE TO TELE THIS AM BUT IT WAS TAKEN OFF WHEN SHE WENT TO DIALYSIS. PT DOES NOT WANT EITHER FOR THE REST OF THE MORNING BEFORE SHE IS DC. PT IS READY FOR DC.
[2019-01-05 05:51] LABS: Albumin, Blood 2.3 g/dL (3.4-5.0); Anion Gap 5 mmol/L (6-16); Blood Urea Nitrogen 21 mg/dL (8-24); Bun/Creatinine Ratio 5.3 (12.0-20.0); CO2, Blood 34 mmol/L (21-32); Calcium, Blood 7.9 mg/dL (8.5-10.1); Chloride, Blood 93 mmol/L (98-108); Creatinine, Blood 3.98 mg/dL (0.40-1.00); Glomerular Filtration Rate 12 (60-); Glucose, Blood 96 mg/dL (70-99); Magnesium, Blood 1.4 mg/dL (1.6-2.4); Phosphorus, Blood 1.4 mg/dL (2.5-4.9); Sodium, Blood 132 mmol/L (136-145)
--- NOTE | 2019-01-05 06:25 | NUR ---
PT NOT IN ROOM THIS AM WHEN DR BOWEN CAME TO SEE HER, HE ASKED WHERE SHE WAS AND I SAID DIALYSIS. HE SAID TO CALL DIALYSIS TO SEE IF SHE WAS THERE. DIALYSIS DIDN'T ANSWER. POMPOM MAKER NOTIFIED. CHARGE CALLED TO SEE IF PT WAS IN DIALYSIS AND SHE WASN'T. CHARGE THEN NOTIFIED SECURITY TO LOOK FOR PT. JESSI SAID TO LOOK IN SMOKING AREAS. PT WAS ASKED EARLY THIS AM IF SHE WANTED US TO TAKE HER DOWN OR IF SOMEONE FROM DIALYSIS COMES TO GET HER AND SHE SAID HER USUALLY TAKES HER AND WOULD BE THIS AM. SHE SAID SHE LIKES TO NORMALLY BE THERE BY 0530. I DID NOT SEE PT LEAVE THE ROOM BUT AREA FORESTER SAID HER TOOK HER IN A WHEELCHAIR. PT SAID EARLIER THIS AM THAT SHE WAS GOING TO COME BACK UP TO THE FLOOR AFTER DIALYSIS TO FINISH HER DC. DC IS READY. UNSURE OF PT LOCATION AT THIS TIME. SECURITY IS STILL LOOKING. POMPOM MAKER AWARE.
--- NOTE | 2019-01-05 09:35 | NUR ---
IV WAS DISCONTINUED WHEN HE WAS EXPECTED TO BE DISCHARGED AFTERWARDS BUT ENDED UP STAYING. SHE REFUSED A NEW IV TO BE PLACED.
--- NOTE | 2019-01-05 13:06 | NUR ---
PATIENT RETURNED FROM DIALYSIS. PATIENT ANXIOUS TO GO HOME. TELE REMOVED. IV DC'D. PT EDUCATED ON DISCHARGE INSTRUCTIONS AND MEDICATIONS. SHE DENIES QUESTIONS. PATIENT DRESSED AND AWAITING HER RIDE TO ARRIVE.
== END 2019-01-05 13:17 | disposition home or self-care (01) ==
LOC: ER 09:32 → MEDS 09:33
PROVIDERS: Emergency Medicine; Internal Medicine Nephrology; Nurse Practitioner Acute Care; ADMIT Hospitalist
DX: I12.0 Hypertensive chronic kidney disease with stage 5 chronic kidney disease or end stage renal disease (principal); N18.6 End stage renal disease; D63.1 Anemia in chronic kidney disease; E86.9 Volume depletion, unspecified; E87.1 Hypo-osmolality and hyponatremia; N25.81 Secondary hyperparathyroidism of renal origin; I95.89 Other hypotension; D69.6 Thrombocytopenia, unspecified; K70.30 Alcoholic cirrhosis of liver without ascites; F10.288 Alcohol dependence with other alcohol-induced disorder; E87.6 Hypokalemia; Z66 Do not resuscitate; Z99.2 Dependence on renal dialysis; Z79.899 Other long term (current) drug therapy
CPT/HCPCS: 36415; 36430; 36558; 76937; 80047; 80053; 80069; 83690; 83735; 84100; 85014; 85018; 85025; 85027; 85610; 86850; 86900; 86901; 86923; 90686; 93005; 93010; 96365; 96366; 96367; 96375; 99152; 99153; 99284-25; C1750; C1769; C1887; G0257; J0610; J0881; J1644; J2060; J2250; J2405; J3010; J3475; J3480; J7040; J7050; J7060; P9016; P9035; Q9967

== ENCOUNTER 2019-01-31 05:59 | Inpatient (IN) | payer MEDICARE, OTHER ==
[~2019-01-31] VITALS: Ht 165.1 cm; Wt 54.6 kg
[~2019-01-31 05:59] MED LIST changes: +VITAMIN B-1100 MG PO
[2019-01-31 10:55] LABS: BASOPHILS ABSOLUTE AUTO 0.01 K/mm3 (0.00-0.23); BASOPHILS PERCENT AUTO 0 % (0-2); EOSINOPHILS ABSOLUTE AUTO 0.03 K/mm3 (0.00-0.68); EOSINOPHILS PERCENT AUTO 1 % (0-6); Hematocrit 25.5 % (33.0-51.0); IMMATURE GRAN ABSOLUTE AUTO 0.02 K/mm3 (0.00-0.10); IMMATURE GRAN PERCENT AUTO 1 % (0-1); LYMPHOCYTES ABSOLUTE AUTO 0.78 K/mm3 (0.84-5.20); LYMPHOCYTES PERCENT AUTO 30 % (21-46); MONOCYTES ABSOLUTE AUTO 0.43 K/mm3 (0.16-1.47); MONOCYTES PERCENT AUTO 17 % (4-13); Mean Corpuscular HGB 34.5 pg (26.0-34.0); Mean Corpuscular HGB Conc 35.3 g/dL (31.5-36.5); Mean Corpuscular Volume 98 fL (80-100); Mean Platelet Volume 10.7 fL (9.1-12.4); NEUTROPHILS ABSOLUTE AUTO 1.33 K/mm3 (1.96-9.15); NEUTROPHILS PERCENT AUTO 51 % (41-73); RDW Coefficient Variation 18.2 % (11.7-14.2); RDW Standard Deviation 63.5 fL (35.1-46.3); Red Blood Cell Count 2.61 M/mm3 (3.80-5.20)
[2019-01-31 11:04] LABS: Albumin, Blood 2.5 g/dL (3.4-5.0); Albumin/Globulin Ratio 0.6 (0.8-1.8); Bilirubin, Total 1.8 mg/dL (0.1-1.0); Calcium, Blood 8.2 mg/dL (8.5-10.1); Globulin, Blood 4.2 g/dL (2.2-4.0); Phosphorus, Blood 1.9 mg/dL (2.5-4.9); Potassium, Blood 3.2 mmol/L (3.5-5.5); Total Protein, Blood 6.7 g/dL (6.4-8.2)
[2019-01-31 11:05] LABS: International Normalized Ratio 1.42; Prothrombin Time Results 14.6 Sec (9.7-11.5)
[2019-01-31 11:09] LABS: Magnesium, Blood 1.1 mg/dL (1.6-2.4)
[2019-01-31 11:18] LABS: Platelet Count 28 K/mm3 (150-400)
--- NOTE | 2019-01-31 14:00 | NUR ---
PT ARRIVED TO ROOM 211 FROM ED. ASSISTED WITH TRANSFER TO BED WITH SLIDE SHEET. SETTLED IN BED AND CALL BUTTON PLACED WITHIN REACH.
[2019-01-31 17:13] LABS: Magnesium, Blood 1.6 mg/dL (1.6-2.4); Potassium, Blood 3.5 mmol/L (3.5-5.5)
--- NOTE | 2019-01-31 17:56 | NUR ---
SHIFT SUMMARY PT HAS BEEN REPOSITIONED SELF IN BED SINCE ARRIVAL. REPORTS PAIN TO HIP MINIMAL UNLESS MOVING AROUND. SPOKE WITH DR. BOWEN THIS AFTERNOON AND HE REPORTED PT COULD HAVE DIALYSIS IF CUSTOMER GREETER COULD BUT IT WASN'T NECESSARY TIL TOMORROW. PT FORGETFUL AT TIMES. DID HAVE BOUT OF VOMITTING JUST BEFORE SUPPER. CURRENTLY NOT NPO.
--- NOTE | 2019-02-01 04:58 | NUR ---
SHIFT SUMMARY PAIN MANAGED PER EMAR WITH PO NORCO. CIRC TO LEFT LEG REMAINS WNL, PT DENIES N/T. BEDREST WITH USE OF BEDPAN. ON ROOM AIR, DENIES SOB, VSS. BED ALARM IS ON FOR SAFETY. WAS IN TO ASSESS PT DURING THE EVENING. NO NEW ORDERS WERE GIVEN. CALL LIGHT REMAINS IN EACH, [facility]
[2019-02-01 05:46] LABS: Hematocrit 23.7 % (33.0-51.0); Hemoglobin 8.1 g/dL (11.5-16.0)
[2019-02-01 05:56] LABS: Albumin, Blood 2.5 g/dL (3.4-5.0); Anion Gap 11 mmol/L (6-16); Blood Urea Nitrogen 12 mg/dL (8-24); Bun/Creatinine Ratio 2.7 (12.0-20.0); CO2, Blood 30 mmol/L (21-32); Calcium, Blood 8.4 mg/dL (8.5-10.1); Chloride, Blood 86 mmol/L (98-108); Creatinine, Blood 4.39 mg/dL (0.40-1.00); Glomerular Filtration Rate 11 (60-); Glucose, Blood 93 mg/dL (70-99); Magnesium, Blood 1.5 mg/dL (1.6-2.4); Phosphorus, Blood 3.1 mg/dL (2.5-4.9); Potassium, Blood 3.4 mmol/L (3.5-5.5); Sodium, Blood 127 mmol/L (136-145)
--- NOTE | 2019-02-01 07:40 | NUR ---
pt awake laying in bed reports pain 6-7/10 l hip req pain meds also asked when she is going to dialysis today dr thornton by to see pt earlier iv mg and kcl ordered pt also to have 2 units prbc with dialysis
--- NOTE | 2019-02-01 08:05 | NUR ---
pt eating breakfast having nausea po meds given pt stated unsure if she can take them zofran given
--- NOTE | 2019-02-01 08:55 | NUR ---
PT TRANSPORTED TO DIALYSIS TALKED WITH THE NURSE PT STILL DECLINED HER ORAL MEDS DUE TO NAUSEA IV KCL SENT WITH PT
--- NOTE | 2019-02-01 11:20 | NUR ---
pt still in dialysis req pain meds 1 tab po norco given pt stated she did throw up
--- NOTE | 2019-02-01 12:01 | NUR ---
pt back from dialysis po meds given pt stated she is going to try to eat lunch unsure if she will be able asked pt if she has voided today stated no
--- NOTE | 2019-02-01 14:15 | NUR ---
dr baker by to see pt discussed her n/v this am with him
--- NOTE | 2019-02-01 14:42 | NUR ---
pt reported dry legs lotion applied pt itching sitting up in recliner after physical therapy stated she feels ok sitting up
--- NOTE | 2019-02-01 15:38 | NUR ---
assisted pt into bed with fww toe touch weight pt asked if she needs staff with her instructed her she need to call every time she gets up pt also ref her scds
--- NOTE | 2019-02-01 17:39 | NUR ---
pt stated her appeatite is a little better this jey able to get some rest req some mash potatoe
[2019-02-02 05:02] LABS: Hematocrit 32.4 % (33.0-51.0); Hemoglobin 11.1 g/dL (11.5-16.0)
[2019-02-02 05:38] LABS: Albumin, Blood 2.6 g/dL (3.4-5.0); Anion Gap 8 mmol/L (6-16); Blood Urea Nitrogen 10 mg/dL (8-24); Bun/Creatinine Ratio 3.3 (12.0-20.0); CO2, Blood 30 mmol/L (21-32); Calcium, Blood 9.1 mg/dL (8.5-10.1); Chloride, Blood 92 mmol/L (98-108); Creatinine, Blood 3.03 mg/dL (0.40-1.00); Glomerular Filtration Rate 17 (60-); Glucose, Blood 76 mg/dL (70-99); Magnesium, Blood 1.7 mg/dL (1.6-2.4); Phosphorus, Blood 1.6 mg/dL (2.5-4.9); Sodium, Blood 130 mmol/L (136-145)
--- NOTE | 2019-02-02 06:34 | NUR ---
SHIFT SUMMARY LYING IN SEMI FOWLERS WITH EYES OPEN WHILE WATCHING TV AND SIPPING ON ORANGE JUICE. HAS RESTED WELL THIS SHIFT. STATES THAT HE IS LOOKING FORWARD TO GOING HOME TODAY IF THE DOCTOR WILL ALLOW. DENIES PAIN, DISCOMFORT, OR FURTHER NEEDS AT THIS TIME. SAFETY MEASURES IN PLACE. WILL GIVE HAND OFF TO ONCOMING SHIFT USING SBAR.
--- NOTE | 2019-02-02 07:00 | NUR ---
LEFT AC 20G PIV LEAKING. DRESSING CHANGED, BUT STILL LEAKING. ANGIOCATH D/C'D WITH TIP INTACT. NEW 22G ANGIOCATH PLACED TO LEFT FA X1 ATTEPT, FLUSHING WITH EASE, TOLERATED WELL. SODIUM PHOS RESTARTED PER MD ORDERS. SAFETY MEASURES IN PLACE. WILL CONTINUE TO MONITOR.
[2019-02-02] MEDS ORDERED: HYDR1TAB94 PO (11:12)
[2019-02-02] MEDS ORDERED: Fludrocortison0.1 MG PO (11:12)
[2019-02-02] MEDS ORDERED: SPIR25 PO (11:13)
[2019-02-02] MEDS ORDERED: VITAMIN D-32000 UNIT PO (11:14)
--- NOTE | 2019-02-02 11:56 | NUR ---
Spiritual care visit conducted. Patient tells me about her personal struggles, her david journey and about her current hip issue. Patient shares about her spiritual delemmas as well. I listen empathically, and provide pastoral international student counselor and prayer. Patient responds well and shows signs of catharsis and restored david. I will contue to remain available to patient and family.
--- NOTE | 2019-02-02 12:33 | NUR ---
DISCHARGED REVIEWED DC PAPERWORK W/PT. VERBALIZED UNDERSTANDING. PROVIDED ICE PACK FOR COMFORT TO L HIP. DC'D IV, CATHETER INTACT. PT LEFT UNIT IN OWN WC W/POSSESSIONS AND DC PAPERWORK IN HAND, ACCOMPANIED BY SPOUSE.
[2019-03-05] MEDS ORDERED: SPIR25 PO (08:14)
[2019-03-05] MEDS ORDERED: Fludrocortison0.1 MG PO (15:37)
[2019-03-05] MEDS ORDERED: HYDR1TAB94 PO (15:38)
[2019-03-09] MEDS ORDERED: OMEPRAZOLE20 MG PO (14:42)
[2019-03-09] MEDS ORDERED: K-Phos Origina500 MG PO (14:49)
[2019-03-09] MEDS ORDERED: BACTRIM DS TAB1 EACH PO (14:50)
[2019-03-09] MEDS ORDERED: ONDA4ODT MM (14:51)
== END 2019-02-02 12:27 | disposition home health service (06) | DRG 535 ==
LOC: ER 05:59 → SURS 11:49
PROVIDERS: Internal Medicine Nephrology; Nurse Practitioner Acute Care; ADMIT Internal Medicine
PROC: 30233N1 Transfusion of Nonautologous Red Blood Cells into Peripheral Vein, Percutaneous Approach (ICD-10-PCS; principal; 2019-02-01)
DX: S32.402A Unspecified fracture of left acetabulum, initial encounter for closed fracture (principal); N18.6 End stage renal disease; E87.1 Hypo-osmolality and hyponatremia; N25.81 Secondary hyperparathyroidism of renal origin; K70.30 Alcoholic cirrhosis of liver without ascites; D69.6 Thrombocytopenia, unspecified; D63.1 Anemia in chronic kidney disease; E87.6 Hypokalemia; E83.42 Hypomagnesemia; E83.39 Other disorders of phosphorus metabolism; E86.9 Volume depletion, unspecified; Z66 Do not resuscitate; I95.9 Hypotension, unspecified
CPT/HCPCS: 36415; 36430; 73502; 73700; 80053; 80069; 83735; 84100; 84132; 85014; 85018; 85025; 85610; 86850; 86900; 86901; 86923; 96365; 96375; 97162; 97167; 97530; 99285-25; A9270-GY; G0480; J0881; J1170; J2405; J3010; J3475; J3480; J7060; P9016

== ENCOUNTER 2019-03-05 02:03 | Inpatient (IN) | payer MEDICARE, OTHER ==
[~2019-03-05] VITALS: Ht 165.1 cm; Wt 60.5 kg
[~2019-03-05 02:03] MED LIST changes: +VITAMIN D-32000 UNIT PO
[2019-03-05 03:37] LABS: BASOPHILS PERCENT AUTO 0 % (0-2); EOSINOPHILS ABSOLUTE AUTO 0.01 K/mm3 (0.00-0.68); EOSINOPHILS PERCENT AUTO 1 % (0-6); Hematocrit 22.8 % (33.0-51.0); Hemoglobin 7.5 g/dL (11.5-16.0); Mean Corpuscular HGB 38.5 pg (26.0-34.0); Mean Corpuscular HGB Conc 32.9 g/dL (31.5-36.5); Mean Corpuscular Volume 117 fL (80-100); Mean Platelet Volume 11.5 fL (9.1-12.4); RDW Coefficient Variation 30.4 % (11.7-14.2); RDW Standard Deviation 122.9 fL (35.1-46.3); Red Blood Cell Count 1.95 M/mm3 (3.80-5.20); White Blood Cell Count 1.58 K/mm3 (4.00-11.30)
[2019-03-05 03:42] LABS: IMMATURE GRAN ABSOLUTE AUTO 0.01 K/mm3 (0.00-0.10); IMMATURE GRAN PERCENT AUTO 1 % (0-1); LYMPHOCYTES ABSOLUTE AUTO 0.69 K/mm3 (0.84-5.20); LYMPHOCYTES PERCENT AUTO 44 % (21-46); MONOCYTES ABSOLUTE AUTO 0.15 K/mm3 (0.16-1.47); MONOCYTES PERCENT AUTO 10 % (4-13); NEUTROPHILS ABSOLUTE AUTO 0.72 K/mm3 (1.96-9.15); NEUTROPHILS PERCENT AUTO 46 % (41-73); Platelet Count 19 K/mm3 (150-400)
[2019-03-05 03:53] LABS: Albumin, Blood 2.1 g/dL (3.4-5.0); Albumin/Globulin Ratio 0.4 (0.8-1.8); Bilirubin, Total 3.6 mg/dL (0.1-1.0); Bun/Creatinine Ratio 3.2 (12.0-20.0); Calcium, Blood 8.4 mg/dL (8.5-10.1); Creatinine, Blood 4.66 mg/dL (0.40-1.00); Globulin, Blood 5.2 g/dL (2.2-4.0); Potassium, Blood 3.6 mmol/L (3.5-5.5); Total Protein, Blood 7.3 g/dL (6.4-8.2)
[2019-03-05 04:58] LABS: International Normalized Ratio 2.13; Prothrombin Time Results 21.8 Sec (9.7-11.5)
[2019-03-05] MEDS ORDERED: SPIR25 PO ×2 (08:14)
--- NOTE | 2019-03-05 08:23 | NUR ---
NO ISOLATION ISOLATION NOT INITIATED BECAUSE THERE ARE 2 NEGATIVE NARES AND 2 NEGATIVE THROAT SWABS SINCE THE INITIAL POSITIVE NARES.
[2019-03-05 11:40] LABS: Mean Platelet Volume 11.5 fL (9.1-12.4)
[2019-03-05 11:44] LABS: Platelet Count 18 K/mm3 (150-400)
[2019-03-05 11:47] LABS: Percent Saturation 131.7 % (15.0-50.0)
[2019-03-05 11:54] LABS: International Normalized Ratio 1.77
[2019-03-05 12:56] LABS: Prothrombin Time Results 18.3 Sec (9.7-11.5)
[2019-03-05] MEDS ORDERED: Fludrocortison0.1 MG PO ×2 (15:37)
[2019-03-05] MEDS ORDERED: HYDR1TAB94 PO ×2 (15:38)
[2019-03-05 15:57] LABS: Hemoglobin 7.9 g/dL (11.5-16.0); Mean Corpuscular HGB 35.6 pg (26.0-34.0); Mean Corpuscular HGB Conc 34.3 g/dL (31.5-36.5); Mean Platelet Volume 9.9 fL (9.1-12.4); RDW Standard Deviation 93.9 fL (35.1-46.3); Red Blood Cell Count 2.22 M/mm3 (3.80-5.20); White Blood Cell Count 1.25 K/mm3 (4.00-11.30)
[2019-03-05 15:58] LABS: Mean Corpuscular Volume 104 fL (80-100)
[2019-03-05 15:59] LABS: Platelet Count 34 K/mm3 (150-400)
[2019-03-05 16:10] LABS: International Normalized Ratio 1.48; Prothrombin Time Results 15.5 Sec (9.7-11.5)
[2019-03-05 18:47] LABS: Source, Urine Clean Catch
[2019-03-05 18:53] LABS: Blood, Urine 4+ (Neg); Glucose Qualitative, Urine Neg (Neg); Ketones, Urine 1+ (Neg); Leukocyte Esterase, Urine 3+ (Neg); Nitrite, Urine Pos (Neg); Protein, Urine 2+ (Neg); Urobilinogen, Urine 2+ (Normal)
[2019-03-05 18:55] LABS: Appearance, Urine Hazy (Clear); Bilirubin, Urine 2+ (Neg); Color, Urine Amber (P-Yellow)
[2019-03-05 19:00] LABS: Amorphous Light (0-Heavy); Bacteria Many /hpf; Mucus Light (0-Heavy); Squamous Epithelial Cells Many /hpf (Few)
[2019-03-05 19:02] LABS: Automated BF RBC Count 0.021 M/mm3 (0-0); Automated BF WBC Count 0.016 K/mm3 (0-999); Body Fluid WBC Count 16 /mm3 (0-999); RBC Count, Body Fluid 21000 /mm3 (0-0)
[2019-03-05 19:03] LABS: Appearance, Body Fluid Cloudy (Clear); Color, Body Fluid Amber (None-Yellow)
[2019-03-05 19:15] LABS: pH, Body Fluid 7.9
[2019-03-05 19:27] LABS: Albumin, Body Fluid 0.3 g/dL; Lactate Dehydrogenase, Body Fl 41 U/L; Protein, Body Fluid 0.9 g/dL
--- NOTE | 2019-03-05 19:27 | NUR ---
pt is a new admit from the er today, the pt is pleasant and cooperative, the pt is up with moderate assist to the bsc, the pt is stand pivot due to left hip pain from recent fall at home, the pt had dialysis this am starting at 0800 during which she was given 2 units prbc's, afterward the pt was given a total of 2 units ffp and 3 units plt's in prep for a paracentisis which was done around 1730 today, pt had n/v t/o out the day was medicated for nausea and pain, the pt scored a 9 on CIWA per this rn, pt is dusky in color, call light in reach will continue to monitor and assess for changes
[2019-03-05 19:28] LABS: Total Cell Count, Body Fluid 100
[2019-03-05 19:55] LABS: Mean Platelet Volume 11.9 fL (9.1-12.4)
[2019-03-05 19:56] LABS: Platelet Count 62 K/mm3 (150-400)
--- NOTE | 2019-03-05 20:28 | NUR ---
1915: assumed care of patient who just returned from having a paracentesis. pt is painful and nauseated. waiting on new orders for pain med dosage adjustment per daytime RN. 1999: gave 50 mcq Fentanyl and zofran for nausea per emar. IV was tender when flushed. may replace the IV later in the shift as needed. 2029: Spoke to Cherry Garza from pharmacy. Order to give Albumin was held due to low amount of fluid removed during paracentesis. Shift assessment completed. bed low and locked. will continue to monitor. call pollack within reach.
--- NOTE | 2019-03-05 23:22 | NUR ---
SPOKE TO PET COUNSELOR HOSPITALIST NANI [place] JUDGE REGARDING LOW GRADE TEMP 100.7 ALSO C/O PAIN 7/10 IN L HIP AND ABD AND NAUSEA. GAVE ZOFRAN AND 50 OF FENTANYL AT 2000 HRS. ALSO PATIENT HAD A NEW IV STARTED IN THE [place] A #20 GAUGE. RECEIVED ORDERS PER EMAR.
[2019-03-06 05:18] LABS: Hematocrit 18.7 % (33.0-51.0); Hemoglobin 6.4 g/dL (11.5-16.0); Mean Corpuscular HGB Conc 34.2 g/dL (31.5-36.5); Mean Corpuscular Volume 105 fL (80-100); Mean Platelet Volume 10.8 fL (9.1-12.4); RDW Coefficient Variation 28.4 % (11.7-14.2); RDW Standard Deviation 92.8 fL (35.1-46.3); Red Blood Cell Count 1.78 M/mm3 (3.80-5.20)
[2019-03-06 05:24] LABS: Platelet Count 50 K/mm3 (150-400)
[2019-03-06 05:30] LABS: International Normalized Ratio 1.6; Prothrombin Time Results 16.7 Sec (9.7-11.5)
[2019-03-06 05:46] LABS: BASOPHILS ABSOLUTE MAN 0.01 K/mm3 (0.00-0.23); BASOPHILS PERCENT MAN 1 % (0-2); EOSINOPHILS ABSOLUTE MAN 0.01 K/mm3 (0.00-0.68); EOSINOPHILS PERCENT MAN 1 % (0-6); LYMPHOCYTES PERCENT MAN 20 % (21-46); MONOCYTES ABSOLUTE MAN 0.13 K/mm3 (0.16-1.47); MONOCYTES PERCENT MAN 9 % (4-13); NEUTROPHILS ABSOLUTE MAN 1.03 K/mm3 (1.96-9.15); SEG NEUTROPHILS PERCENT MAN 69 % (41-73); TOTAL CELLS COUNTED 100
[2019-03-06 05:47] LABS: Albumin, Blood 2.1 g/dL (3.4-5.0); Anion Gap 4 mmol/L (6-16); Blood Urea Nitrogen 13 mg/dL (8-24); Bun/Creatinine Ratio 4.2 (12.0-20.0); CO2, Blood 34 mmol/L (21-32); Calcium, Blood 8.4 mg/dL (8.5-10.1); Chloride, Blood 99 mmol/L (98-108); Creatinine, Blood 3.09 mg/dL (0.40-1.00); Glomerular Filtration Rate 16 (60-); Glucose, Blood 81 mg/dL (70-99); Magnesium, Blood 1.7 mg/dL (1.6-2.4); Phosphorus, Blood 2.2 mg/dL (2.5-4.9); Potassium, Blood 3.7 mmol/L (3.5-5.5); Sodium, Blood 137 mmol/L (136-145)
--- NOTE | 2019-03-06 06:44 | NUR ---
CALLED PROFESSIONAL SERVICES CONSULTANT DILANDA REGARDING DR BOWEN'S ORDER FOR HD TODAY AND 2 UNTIS BLOOD WITH HD. SHE REPORTS SHE IS ON HER WAY.
--- NOTE | 2019-03-06 08:24 | NUR ---
PT LABS SHOWED HGB 6.[address] BOWEN, HE ORDERED 2 UNITS OF PRBCS PT WAS ANXIOUS AND NAUSEATED DURING THE EARLY PART OF THE SHIFT. SHE RECEIVED ZOFRAN AND REGLAN FOR NAUSEA. SHE IS TO GO TO DIALYSIS THIS AM AND TO RECEIVE THE PRBCs THERE. SPOKE TO THE DOCTOR REGARDING HER PAIN COVERAGE AND RECEIVED NEW ORDERS PER EMAR. PATIENT WAS ABLE TO SLEEP AFTER THAT AND FEELS BETTER THIS MORNING. PASSED REPORT TO DAY NURSE
[2019-03-06 13:05] LABS: Antinuclear Antibody Screen Negative (Negative)
--- NOTE | 2019-03-06 14:41 | NUR ---
Inital spiritual care note: Manasa appears a bit mentally foggy, but she was open to conversation. she verbalizes understanding that her drinking is "going to kill me." She has her first grandchild arriveing in May. Her son will not allow grandchild to be around pt until she quits drinking. This is a strong motivation for Manasa. she has been through 30 day ETOH rehab and has attended 12 step meetings in the past. When she was active in the AA program, she managed to stay sober for a few months. She apears to understand what's needed to quit drinking. We spoke at length about her addiction. Manasa responded well to gentle child guidance counselor and guidence. We had an easy rapport. Clearly, Manasa will benefit from continued encouragement and guidence. I will continue to see her as schedule permits.
--- NOTE | 2019-03-06 15:00 | NUR ---
PT. TO SURGERY FOR EGD VIA [facility].
--- NOTE | 2019-03-06 15:28 | NUR ---
PT TRANSFERED TO [facility] FROM [facility]. VSS. PT STATES NPO STATUS. AT BEDSIDE. LUNGS CTA. DR. BOLIVAR AT BEDSIDE.
--- NOTE | 2019-03-06 15:56 | NUR ---
03/06/19 1555 GRACE FARRELL History, Chart, Medications and Allergies reviewed before start of procedure.3-LEAD EKG REVIEWED WITH PHYSICIAN PRIOR TO START OF PROCEDURE.O2 VIA N/C INTACT THROUGHOUT SEDATION/PROCEDURE. MONITOR INTACT WITH CONTINUOUS PULSE OXIMETRY AND INTERMITTENT BP.
--- NOTE | 2019-03-06 17:05 | NUR ---
PT. SPOUSE ARRIVED TO ROOM WITH CHICKEN STRIPS, SODA AND CHICKEN SANDWICHES FROM [employer]. TOLD PT AND SPOUSE SHE WAS SUPPOSED TO BE ON A RENAL DIET. SPOUSE STATES "THIS IS WHAT SHE EATS AT HOME" DID NOT ARGUE WITH SPOUSE OR PATIENT.
[2019-03-06 17:15] LABS: Hematocrit 29.6 % (33.0-51.0); Hemoglobin 10.2 g/dL (11.5-16.0)
--- NOTE | 2019-03-06 18:32 | NUR ---
PT. SLEEPING AT THIS TIME. HAD EGD TODAY AND TOLERATED WELL, ATE FOOD SPOUSE BROUGHT IN BUT DR. POSEY ARRIVED TO ROOM AND LET THE PT. AND SPOUSE SHE WAS TO HAVE HOSPITAL FOOD ONLY. PT. ONLY ATE A FEW BITES OF HOSPITAL DINNER. TOLERATED ALL FOOD WELL.
[2019-03-07 04:59] LABS: BASOPHILS PERCENT AUTO 0 % (0-2); EOSINOPHILS ABSOLUTE AUTO 0.04 K/mm3 (0.00-0.68); EOSINOPHILS PERCENT AUTO 2 % (0-6); Hematocrit 26.1 % (33.0-51.0); Hemoglobin 8.9 g/dL (11.5-16.0); Mean Corpuscular HGB 33.7 pg (26.0-34.0); Mean Corpuscular HGB Conc 34.1 g/dL (31.5-36.5); Mean Platelet Volume 11.3 fL (9.1-12.4); RDW Coefficient Variation 24.9 % (11.7-14.2); RDW Standard Deviation 63.3 fL (35.1-46.3); Red Blood Cell Count 2.64 M/mm3 (3.80-5.20); White Blood Cell Count 1.81 K/mm3 (4.00-11.30)
[2019-03-07 05:15] LABS: Albumin, Blood 2.1 g/dL (3.4-5.0); Anion Gap 8 mmol/L (6-16); Blood Urea Nitrogen 10 mg/dL (8-24); CO2, Blood 31 mmol/L (21-32); Calcium, Blood 8.4 mg/dL (8.5-10.1); Chloride, Blood 98 mmol/L (98-108); Creatinine, Blood 2.47 mg/dL (0.40-1.00); Glomerular Filtration Rate 21 (60-); Glucose, Blood 113 mg/dL (70-99); Magnesium, Blood 1.6 mg/dL (1.6-2.4); Phosphorus, Blood 1.5 mg/dL (2.5-4.9); Potassium, Blood 2.9 mmol/L (3.5-5.5); Sodium, Blood 137 mmol/L (136-145)
[2019-03-07 05:32] LABS: Mean Corpuscular Volume 99 fL (80-100)
[2019-03-07 05:33] LABS: IMMATURE GRAN ABSOLUTE AUTO 0.01 K/mm3 (0.00-0.10); IMMATURE GRAN PERCENT AUTO 1 % (0-1); LYMPHOCYTES ABSOLUTE AUTO 0.52 K/mm3 (0.84-5.20); LYMPHOCYTES PERCENT AUTO 29 % (21-46); MONOCYTES ABSOLUTE AUTO 0.21 K/mm3 (0.16-1.47); MONOCYTES PERCENT AUTO 12 % (4-13); NEUTROPHILS ABSOLUTE AUTO 1.03 K/mm3 (1.96-9.15); NEUTROPHILS PERCENT AUTO 57 % (41-73)
[2019-03-07 05:34] LABS: Platelet Count 33 K/mm3 (150-400)
[2019-03-07 06:08] LABS: HEP B CORE AB, TOT Negative (Negative)
--- NOTE | 2019-03-07 07:40 | NUR ---
SHIFT SUMMARY NO ACUTE CHANGES THIS SHIFT. AOX4. VSS. REPORTS 2/10 PAIN IN L HIP, YET DENIES NEED FOR ANY PAIN MEDICATION. DENIES N/V. PASSING GAS OKAY, HAD SMALL LOOSE DARK BROWN BM. ABD SOFT & NON TENDER TO PALPATION. DENIES DYSPNEA. I WAS NOTIFIED OF CRITICAL PLATELET LEVEL OF 33 THIS AM & INFORMED DR CRUZ, HE SAID "OKAY" & GAVE NO NEW ORDERS, WILL INFORM ONCOMING NURSE. CALL LIGHT IN REACH.
--- NOTE | 2019-03-07 07:45 | NUR ---
TRIED TP START PT'S KCL IV BUT SHE WAS UNABLE TO TOLERATE IT, NOTIFIED DR. BOWEN, HE SUGGESTED I TRY THE K-PHOS, PT. UNABLE TO TOLERATE IT EITHER, CALLED DR. BOWEN ONCE AGAIN, KCL AND KPHOS ODERED PO AND GIVEN TO PT. DIALYSIS TO BE DONE IN ROOM AGAIN TODAY AND 1 UPRBC'S INFUSED WITH DIALYSIS.
--- NOTE | 2019-03-07 17:28 | NUR ---
Routine spiritual care visit: Manasa did not appear to remember our conversation from yesterday. She remembers me, but tells me today she "really wants to go home." She feels lousy and says she doesn't know why she feels so ill. Her arrived and conversation shifted. He appears loving, bringing her things from home and snacks she enjoys. Manasa asked that I return tomorrow. Until then, I will remain available.
--- NOTE | 2019-03-07 19:00 | NUR ---
PT. SLEEPING SINCE HAVING DINNER. HAD DYALYSIS TODAY WITH TRANSFUSION OF 1UPRBC'S. IF PT' H&H IS WNL IN THE MORNING PT. WILL PROBABLY BE DISCHARGED HOME,
--- NOTE | 2019-03-07 23:51 | NUR ---
BEGINNING SHIFT SUMMARY ASSUMED CARE OF PT AT 1900. PT WAS LYING IN BED SLEEPING. PT IS A/O X4, STATES THAT SHE HAS NUMBNESS IN HER BLE. PT DENIES ANY PAIN AT THIS TIME. HEART SOUNDS REGULAR, LUNG SOUND DIMINISHED. DAYSHIFT NURSE REPORTED THT PT GOT DIALYSIS TODAY AND 1 UNIT OF PRBC AND THE PT WILL BE READY FOR DISCHARGE IF HER HBG IMPROVES OVERNIGHT. PT IS CURRENTLY SLEEPING. CALL LIGHT IN REACH, BED IN LOWEST POSTION, WILL CONTINUE TO MONITOR.
[2019-03-08 05:04] LABS: BASOPHILS PERCENT AUTO 0 % (0-2); EOSINOPHILS ABSOLUTE AUTO 0.03 K/mm3 (0.00-0.68); EOSINOPHILS PERCENT AUTO 2 % (0-6); Hematocrit 30.1 % (33.0-51.0); Hemoglobin 10.3 g/dL (11.5-16.0); IMMATURE GRAN ABSOLUTE AUTO 0.01 K/mm3 (0.00-0.10); IMMATURE GRAN PERCENT AUTO 1 % (0-1); LYMPHOCYTES ABSOLUTE AUTO 0.58 K/mm3 (0.84-5.20); LYMPHOCYTES PERCENT AUTO 31 % (21-46); MONOCYTES ABSOLUTE AUTO 0.28 K/mm3 (0.16-1.47); MONOCYTES PERCENT AUTO 15 % (4-13); Mean Corpuscular HGB 33.2 pg (26.0-34.0); Mean Corpuscular HGB Conc 34.2 g/dL (31.5-36.5); Mean Corpuscular Volume 97 fL (80-100); Mean Platelet Volume 11.7 fL (9.1-12.4); NEUTROPHILS PERCENT AUTO 53 % (41-73); RDW Coefficient Variation 23.4 % (11.7-14.2); RDW Standard Deviation 60.5 fL (35.1-46.3)
[2019-03-08 05:17] LABS: Albumin, Blood 2.1 g/dL (3.4-5.0); Anion Gap 7 mmol/L (6-16); Blood Urea Nitrogen 9 mg/dL (8-24); Bun/Creatinine Ratio 3.8 (12.0-20.0); CO2, Blood 32 mmol/L (21-32); Calcium, Blood 8.2 mg/dL (8.5-10.1); Chloride, Blood 100 mmol/L (98-108); Creatinine, Blood 2.34 mg/dL (0.40-1.00); Glomerular Filtration Rate 22 (60-); Glucose, Blood 89 mg/dL (70-99); Magnesium, Blood 1.7 mg/dL (1.6-2.4); Phosphorus, Blood 1.9 mg/dL (2.5-4.9); Potassium, Blood 3.3 mmol/L (3.5-5.5); Sodium, Blood 139 mmol/L (136-145)
[2019-03-08 05:22] LABS: Platelet Count 22 K/mm3 (150-400)
--- NOTE | 2019-03-08 06:50 | NUR ---
END SHIFT SUMMARY LAB NOTIFIED THIS NURSE OF CRITICAL VALUE, PLATLETS ARE 22 FROM 33 YESTERDAY, DR CRUZ NOTIFIED AND DID NOT GIVE ORDERS. PT SLEPT T/O THE NIGHT AND ONLY AOKE FOR MORNING MEDS, PT IS EXCITED TO HOMEPFULLY BE DISCHARGED TODAY. CALL LIGHT IN REACH, BED IN LOWEST POSTITION, WILL CONTINUE TO MONITOR UNTIL DAYSHIFT NURSE ARRIVES.
--- NOTE | 2019-03-08 08:02 | NUR ---
DIALYSIS REFUSING DIALYSIS TODAY.
[2019-03-08 10:52] LABS: BASOPHILS PERCENT AUTO 0 % (0-2); EOSINOPHILS ABSOLUTE AUTO 0.02 K/mm3 (0.00-0.68); EOSINOPHILS PERCENT AUTO 1 % (0-6); Hematocrit 33.4 % (33.0-51.0); IMMATURE GRAN PERCENT AUTO 0 % (0-1); LYMPHOCYTES ABSOLUTE AUTO 0.39 K/mm3 (0.84-5.20); LYMPHOCYTES PERCENT AUTO 23 % (21-46); MONOCYTES ABSOLUTE AUTO 0.27 K/mm3 (0.16-1.47); MONOCYTES PERCENT AUTO 16 % (4-13); Mean Corpuscular HGB 32.4 pg (26.0-34.0); Mean Corpuscular HGB Conc 32.9 g/dL (31.5-36.5); Mean Corpuscular Volume 99 fL (80-100); Mean Platelet Volume 10.5 fL (9.1-12.4); NEUTROPHILS ABSOLUTE AUTO 1.04 K/mm3 (1.96-9.15); NEUTROPHILS PERCENT AUTO 60 % (41-73); RDW Coefficient Variation 23.6 % (11.7-14.2); RDW Standard Deviation 63.4 fL (35.1-46.3); Red Blood Cell Count 3.39 M/mm3 (3.80-5.20); White Blood Cell Count 1.72 K/mm3 (4.00-11.30)
[2019-03-08 10:56] LABS: Platelet Count 21 K/mm3 (150-400)
--- NOTE | 2019-03-08 11:43 | NUR ---
Pt resting in bed upon arrival. Pt denies pain and dyspnea at this time. Pt's at bedside. Pt reports anxiety due to wanting to go home. Discussed lab values that are trending down. Pt tearful at times and keeps repeating "all I want to do is go home". Pt tends to be attempting to bargain saying "I have everything at home that I need". Discussed the possibility of staying due to lab trends pending hospitalist's recommendations. appears to be in agreement that Pt should stay. No other concerns reported at this time. Spoke with waiter/waitress buffet Ladan and discussed case. Pt refused Dialysis today. Spoke with Dr Acharya and discussed case. Discussed placing Pt on neutropenic precautions and Dr Acharya is agreeable. Palliative Care will remain available.
--- NOTE | 2019-03-08 11:58 | NUR ---
Late Entry from previous visit. Pt denies withdrawel symptoms and says no to questions regarding withdrawel symptoms but appears to be experiencing some symptoms as evidenced by Pt appearing anxious, emotional distress, and tremors on upper extremities and head.
--- NOTE | 2019-03-08 18:21 | NUR ---
Routine spiritual care note: Manasa states she is more tired today than yesterday and this concerns her. She is also fearful that lab work shows decline. She is deeply appreciaitive of assurance of care and hope. She responds well to psychologist counseling/encouragement and appeared less frustrated about staying hospitalized by end of visit. She again states that she recognizes life-style changes needed in order to be "a good grandma" to expected grandchild in Spring. We have an easy rapport and I will continue to see Manasa as schedule permits.
--- NOTE | 2019-03-08 19:00 | NUR ---
PT. HAS SLEPT MOST OF THE DAY, HE DISCHARGE WAS HELD R/T PLATELET COUNT OF 21. DR. POSEY, PAUL BOWEN, AND LORENA HAVE ALL BEEN TO SEE THE PT. TODAY. NO OTHER NOTEABLE CHANGES.
--- NOTE | 2019-03-09 02:03 | NUR ---
BEGINNING SHIFT SUMMARY ASSUMED CARE OF PT AT 1900. PT IS A/O X4. PT IS SAD ABOUT NOT BEING ABLE TO GO HOME TODAY AND IS HOPEFUL ABOUT GOING HOME TOMORROW. HEART SOUNDS REGULAR, DENIES CP, FINE CRACKLES AT BASES OF LUNGS, DENIES SOB/DYSPNEA. PT DENIES PAIN AT THIS TIME. PT STATES THAT HER ABDOMEN IS FEELING MORE DISTENDED AND TIGHT AND THAT SHE IS FEELING NAUSEATED, PT REFUSED MEDICATIONS UNTIL SYMPTOMS WORSEN. CALL LIGHT IN REACH, BED IN LOWEST POSTION, WILL CONTINUE TO MONITOR.
[2019-03-09 05:28] LABS: BASOPHILS ABSOLUTE AUTO 0.01 K/mm3 (0.00-0.23); BASOPHILS PERCENT AUTO 1 % (0-2); EOSINOPHILS ABSOLUTE AUTO 0.03 K/mm3 (0.00-0.68); EOSINOPHILS PERCENT AUTO 1 % (0-6); Hematocrit 31.1 % (33.0-51.0); Hemoglobin 10.5 g/dL (11.5-16.0); IMMATURE GRAN ABSOLUTE AUTO 0.02 K/mm3 (0.00-0.10); IMMATURE GRAN PERCENT AUTO 1 % (0-1); LYMPHOCYTES ABSOLUTE AUTO 0.54 K/mm3 (0.84-5.20); LYMPHOCYTES PERCENT AUTO 26 % (21-46); MONOCYTES ABSOLUTE AUTO 0.39 K/mm3 (0.16-1.47); MONOCYTES PERCENT AUTO 19 % (4-13); Mean Corpuscular HGB 33.5 pg (26.0-34.0); Mean Corpuscular HGB Conc 33.8 g/dL (31.5-36.5); Mean Corpuscular Volume 99 fL (80-100); Mean Platelet Volume 12.3 fL (9.1-12.4); NEUTROPHILS ABSOLUTE AUTO 1.12 K/mm3 (1.96-9.15); NEUTROPHILS PERCENT AUTO 53 % (41-73); RDW Coefficient Variation 23.3 % (11.7-14.2); RDW Standard Deviation 64.4 fL (35.1-46.3); Red Blood Cell Count 3.13 M/mm3 (3.80-5.20); White Blood Cell Count 2.11 K/mm3 (4.00-11.30)
[2019-03-09 05:36] LABS: Platelet Count 18 K/mm3 (150-400)
[2019-03-09 05:38] LABS: International Normalized Ratio 1.59; Prothrombin Time Results 16.6 Sec (9.7-11.5)
[2019-03-09 05:55] LABS: Albumin, Blood 2.1 g/dL (3.4-5.0); Anion Gap 7 mmol/L (6-16); Blood Urea Nitrogen 16 mg/dL (8-24); Bun/Creatinine Ratio 4.5 (12.0-20.0); CO2, Blood 31 mmol/L (21-32); Calcium, Blood 8.2 mg/dL (8.5-10.1); Chloride, Blood 99 mmol/L (98-108); Creatinine, Blood 3.57 mg/dL (0.40-1.00); Glomerular Filtration Rate 14 (60-); Glucose, Blood 91 mg/dL (70-99); Magnesium, Blood 1.4 mg/dL (1.6-2.4); Phosphorus, Blood 2.4 mg/dL (2.5-4.9); Potassium, Blood 3.3 mmol/L (3.5-5.5); Sodium, Blood 137 mmol/L (136-145)
--- NOTE | 2019-03-09 06:16 | NUR ---
PLATLET LEVEL DR BOWEN CAME TO SEE PT THIS AM, ASKED TO CALL DR CARRILLO THIS AM AND CONSULT ABOUT HER PLATLET LEVELS. DR. CARRILLO ASKED TO HOLD OFF ON GIVING PLATELTS AND HE WILL BE IN THIS AM TO SEE THE PT. DR. BOWEN AGREED.
[2019-03-09] MEDS ORDERED: OMEPRAZOLE20 MG PO ×2 (14:42)
[2019-03-09] MEDS ORDERED: K-Phos Origina500 MG PO ×2 (14:49)
[2019-03-09] MEDS ORDERED: BACTRIM DS TAB1 EACH PO ×2 (14:50)
[2019-03-09] MEDS ORDERED: ONDA4ODT MM ×2 (14:51)
--- NOTE | 2019-03-09 15:13 | NUR ---
PATIENT D/C'D TO HOME WITH . RX MEDICATIONS FAXED TO [facility]. D/C INSTRUCTIONS AND EDUCATION DISCUSSED WITH PATIENT AND COPY PROVIDED. PATIENT ASKED TO MAKE HER OWN FOLLOW UP APPTS SINCE THERE WERE SO MANY AND SO THAT SHE COULD COORDINATE WITH DIALYSIS. PATIENT DENIES ANY FURTHER QUESTIONS OR CONCERNS.
== END 2019-03-09 15:09 | disposition home or self-care (01) | DRG 380 ==
LOC: ER 02:03 → MEDS 02:04
PROVIDERS: Emergency Medicine; Family Medicine; Internal Medicine Gastroenterology; Internal Medicine Hematology & Oncology; Internal Medicine Nephrology; ADMIT Internal Medicine
PROC: 0DJ08ZZ Inspection of Upper Intestinal Tract, Via Natural or Artificial Opening Endoscopic (ICD-10-PCS; 2019-03-06)
PROC: 5A1D70Z Performance of Urinary Filtration, Intermittent, Less than 6 Hours Per Day (ICD-10-PCS; principal; 2019-03-07)
PROC: 30233N1 Transfusion of Nonautologous Red Blood Cells into Peripheral Vein, Percutaneous Approach (ICD-10-PCS; 2019-03-07)
PROC: 5A1D70Z Performance of Urinary Filtration, Intermittent, Less than 6 Hours Per Day (ICD-10-PCS; 2019-03-09)
DX: K22.11 Ulcer of esophagus with bleeding (principal); S32.422A Displaced fracture of posterior wall of left acetabulum, initial encounter for closed fracture; N18.6 End stage renal disease; I12.0 Hypertensive chronic kidney disease with stage 5 chronic kidney disease or end stage renal disease; D61.818 Other pancytopenia; K76.6 Portal hypertension; E11.22 Type 2 diabetes mellitus with diabetic chronic kidney disease; D63.1 Anemia in chronic kidney disease; Z99.2 Dependence on renal dialysis; Z79.4 Long term (current) use of insulin; D69.49 Other primary thrombocytopenia; F10.10 Alcohol abuse, uncomplicated; K70.31 Alcoholic cirrhosis of liver with ascites; K22.2 Esophageal obstruction; D50.0 Iron deficiency anemia secondary to blood loss (chronic)
CPT/HCPCS: 36415; 36430; 49083; 74177; 80053; 80069; 81001; 82042; 82105; 82607; 82728; 82746; 82947; 83516; 83540; 83550; 83605; 83615; 83690; 83735; 83986; 84157; 85014; 85018; 85025; 85027; 85049; 85610; 86038; 86704; 86708; 86850; 86900; 86901; 86923; 87040; 87070; 87075; 87077; 87086; 87186; 87205; 89051; 96365-59; 96367; 96368; 96372; 96375; 96376; 97110; 97162; 97166; 97530; 97535; 99285-25; A9270-GY; C9113; G0378; G0480; J0696; J0881; J2405; J2550; J2704; J2765; J3010; J3480; J7030; J7050; J7060; P9016; P9035; P9059; Q9967

== ENCOUNTER 2019-03-13 12:02 | Emergency (ER) | payer MEDICARE, OTHER ==
[~2019-03-13] VITALS: Ht 165.1 cm; Wt 54.4 kg
[~2019-03-13 12:02] MED LIST changes: +BACTRIM DS TAB1 EACH PO; +K-Phos Origina500 MG PO; +OMEPRAZOLE20 MG PO; +ONDA4ODT MM
[2019-03-13 13:13] LABS: BASOPHILS ABSOLUTE AUTO 0.02 K/mm3 (0.00-0.23); BASOPHILS PERCENT AUTO 1 % (0-2); EOSINOPHILS ABSOLUTE AUTO 0.03 K/mm3 (0.00-0.68); EOSINOPHILS PERCENT AUTO 1 % (0-6); Hematocrit 35.8 % (33.0-51.0); Hemoglobin 11.5 g/dL (11.5-16.0); IMMATURE GRAN ABSOLUTE AUTO 0.01 K/mm3 (0.00-0.10); IMMATURE GRAN PERCENT AUTO 1 % (0-1); LYMPHOCYTES ABSOLUTE AUTO 0.71 K/mm3 (0.84-5.20); LYMPHOCYTES PERCENT AUTO 33 % (21-46); MONOCYTES ABSOLUTE AUTO 0.57 K/mm3 (0.16-1.47); MONOCYTES PERCENT AUTO 26 % (4-13); Mean Corpuscular HGB 33.2 pg (26.0-34.0); Mean Corpuscular HGB Conc 32.1 g/dL (31.5-36.5); Mean Platelet Volume 10.6 fL (9.1-12.4); NEUTROPHILS ABSOLUTE AUTO 0.83 K/mm3 (1.96-9.15); NEUTROPHILS PERCENT AUTO 38 % (41-73); RDW Standard Deviation 92.2 fL (35.1-46.3); Red Blood Cell Count 3.46 M/mm3 (3.80-5.20); White Blood Cell Count 2.17 K/mm3 (4.00-11.30)
[2019-03-13 13:18] LABS: Mean Corpuscular Volume 104 fL (80-100)
[2019-03-13 13:21] LABS: Platelet Count 36 K/mm3 (150-400)
[2019-03-13 13:23] LABS: International Normalized Ratio 1.36; Prothrombin Time Results 14.3 Sec (9.7-11.5)
[2019-03-13 13:38] LABS: Albumin, Blood 2.1 g/dL (3.4-5.0); Albumin/Globulin Ratio 0.4 (0.8-1.8); Bilirubin, Total 1.5 mg/dL (0.1-1.0); Bun/Creatinine Ratio 5.5 (12.0-20.0); Calcium, Blood 8.6 mg/dL (8.5-10.1); Creatinine, Blood 4.36 mg/dL (0.40-1.00); Globulin, Blood 4.9 g/dL (2.2-4.0)
== END 2019-03-13 16:08 | disposition home or self-care (01) ==
LOC: ER 12:02
PROVIDERS: Physician Assistant
DX: R18.8 Other ascites (principal); N18.6 End stage renal disease; K76.6 Portal hypertension; K72.90 Hepatic failure, unspecified without coma; Z99.2 Dependence on renal dialysis; Z87.891 Personal history of nicotine dependence
CPT/HCPCS: 36415; 80053; 85025; 85610; 85730; 99284

== ENCOUNTER 2019-03-14 09:08 | Emergency (ER) | payer MEDICARE, OTHER ==
[~2019-03-14] VITALS: Ht 165.1 cm; Wt 56.5 kg
[2019-03-14 12:54] LABS: Albumin, Body Fluid 0.5 g/dL; Protein, Body Fluid 1.4 g/dL
== END 2019-03-14 13:45 | disposition home or self-care (01) ==
LOC: ER 09:08
PROVIDERS: Physician Assistant
DX: K70.31 Alcoholic cirrhosis of liver with ascites (principal); N18.6 End stage renal disease; D63.1 Anemia in chronic kidney disease; Z88.8 Allergy status to other drugs, medicaments and biological substances; Z79.899 Other long term (current) drug therapy; Z99.2 Dependence on renal dialysis
CPT/HCPCS: 36430; 49083; 82042; 84157; 86850; 86900; 86901; 87070; 87205; 99284-25; P9035

== ENCOUNTER 2019-03-19 09:09 | Emergency (ER) | payer MEDICARE, OTHER ==
[~2019-03-19] VITALS: Ht 165.1 cm; Wt 56.7 kg
[2019-03-19 10:34] LABS: IMMATURE GRAN ABSOLUTE AUTO 0.01 K/mm3 (0.00-0.10); IMMATURE GRAN PERCENT AUTO 1 % (0-1)
[2019-03-19 10:39] LABS: BASOPHILS ABSOLUTE AUTO 0.04 K/mm3 (0.00-0.23); BASOPHILS PERCENT AUTO 2 % (0-2); EOSINOPHILS ABSOLUTE AUTO 0.03 K/mm3 (0.00-0.68); EOSINOPHILS PERCENT AUTO 2 % (0-6); Hematocrit 36.7 % (33.0-51.0); Hemoglobin 11.5 g/dL (11.5-16.0); LYMPHOCYTES ABSOLUTE AUTO 0.78 K/mm3 (0.84-5.20); LYMPHOCYTES PERCENT AUTO 39 % (21-46); MONOCYTES ABSOLUTE AUTO 0.33 K/mm3 (0.16-1.47); MONOCYTES PERCENT AUTO 17 % (4-13); Mean Corpuscular HGB 33.3 pg (26.0-34.0); Mean Corpuscular HGB Conc 31.3 g/dL (31.5-36.5); Mean Corpuscular Volume 106 fL (80-100); Mean Platelet Volume 11.8 fL (9.1-12.4); NEUTROPHILS ABSOLUTE AUTO 0.79 K/mm3 (1.96-9.15); NEUTROPHILS PERCENT AUTO 40 % (41-73); Platelet Count 57 K/mm3 (150-400); RDW Coefficient Variation 27.2 % (11.7-14.2); RDW Standard Deviation 100.8 fL (35.1-46.3); Red Blood Cell Count 3.45 M/mm3 (3.80-5.20); White Blood Cell Count 1.98 K/mm3 (4.00-11.30)
[2019-03-19 10:46] LABS: International Normalized Ratio 1.27; Prothrombin Time Results 13.4 Sec (9.7-11.5)
[2019-03-19 10:52] LABS: Albumin, Blood 2.2 g/dL (3.4-5.0); Albumin/Globulin Ratio 0.4 (0.8-1.8); Bilirubin, Total 1.5 mg/dL (0.1-1.0); Bun/Creatinine Ratio 4.7 (12.0-20.0); Calcium, Blood 8.9 mg/dL (8.5-10.1); Creatinine, Blood 3.38 mg/dL (0.40-1.00); Globulin, Blood 5.2 g/dL (2.2-4.0); Potassium, Blood 4.9 mmol/L (3.5-5.5); Total Protein, Blood 7.4 g/dL (6.4-8.2)
== END 2019-03-19 12:30 | disposition home or self-care (01) ==
LOC: ER 09:09
PROVIDERS: Emergency Medicine
DX: R18.8 Other ascites (principal); N18.6 End stage renal disease; K72.90 Hepatic failure, unspecified without coma; D64.9 Anemia, unspecified; D69.59 Other secondary thrombocytopenia; K70.30 Alcoholic cirrhosis of liver without ascites
CPT/HCPCS: 36415; 49082; 80053; 85025; 85610; 85730; 99284-25

== ENCOUNTER 2019-03-27 13:31 | Day surgery (SDC) | payer MEDICARE, OTHER | END 2019-04-13 23:05 | disposition home or self-care (01) | LOC: US 13:31 | DX: K70.31 Alcoholic cirrhosis of liver with ascites (principal) | CPT/HCPCS: 49083 ==

== ENCOUNTER 2019-05-02 05:33 | Emergency (ER) | payer MEDICARE, OTHER ==
[~2019-05-02] VITALS: Ht 165.1 cm; Wt 59.0 kg
[2019-05-02 06:52] LABS: BASOPHILS ABSOLUTE AUTO 0.02 K/mm3 (0.00-0.23); BASOPHILS PERCENT AUTO 1 % (0-2); EOSINOPHILS ABSOLUTE AUTO 0.02 K/mm3 (0.00-0.68); EOSINOPHILS PERCENT AUTO 1 % (0-6); Hematocrit 28.5 % (33.0-51.0); Hemoglobin 9.7 g/dL (11.5-16.0); IMMATURE GRAN ABSOLUTE AUTO 0.01 K/mm3 (0.00-0.10); IMMATURE GRAN PERCENT AUTO 0 % (0-1); LYMPHOCYTES ABSOLUTE AUTO 0.77 K/mm3 (0.84-5.20); LYMPHOCYTES PERCENT AUTO 28 % (21-46); MONOCYTES ABSOLUTE AUTO 0.56 K/mm3 (0.16-1.47); MONOCYTES PERCENT AUTO 20 % (4-13); Mean Corpuscular HGB 35.5 pg (26.0-34.0); Mean Corpuscular Volume 104 fL (80-100); Mean Platelet Volume 9.3 fL (9.1-12.4); NEUTROPHILS ABSOLUTE AUTO 1.39 K/mm3 (1.96-9.15); NEUTROPHILS PERCENT AUTO 50 % (41-73); Platelet Count 61 K/mm3 (150-400); RDW Coefficient Variation 17.6 % (11.7-14.2); RDW Standard Deviation 67.8 fL (35.1-46.3); Red Blood Cell Count 2.73 M/mm3 (3.80-5.20); White Blood Cell Count 2.77 K/mm3 (4.00-11.30)
[2019-05-02 07:14] LABS: Albumin/Globulin Ratio 0.4 (0.8-1.8); Bilirubin, Total 1.5 mg/dL (0.1-1.0); Bun/Creatinine Ratio 5.1 (12.0-20.0); Calcium, Blood 8.5 mg/dL (8.5-10.1); Creatinine, Blood 5.84 mg/dL (0.40-1.00); Potassium, Blood 4.6 mmol/L (3.5-5.5)
[2019-05-02 07:28] LABS: International Normalized Ratio 1.25; Prothrombin Time Results 13.2 Sec (9.7-11.5)
== END 2019-05-02 09:39 | disposition home or self-care (01) ==
LOC: ER 05:33
PROVIDERS: Emergency Medicine
DX: R18.8 Other ascites (principal); I12.0 Hypertensive chronic kidney disease with stage 5 chronic kidney disease or end stage renal disease; N18.6 End stage renal disease; K72.90 Hepatic failure, unspecified without coma; Z79.899 Other long term (current) drug therapy
CPT/HCPCS: 36415; 80053; 85025; 85610; 85730

== ENCOUNTER 2019-06-06 18:25 | Emergency (ER) | payer MEDICARE, OTHER ==
[~2019-06-06] VITALS: Ht 165.1 cm; Wt 59.0 kg
[2019-06-06 20:19] LABS: BASOPHILS ABSOLUTE AUTO 0.01 K/mm3 (0.00-0.23); BASOPHILS PERCENT AUTO 0 % (0-2); EOSINOPHILS PERCENT AUTO 0 % (0-6); Hematocrit 27.8 % (33.0-51.0); IMMATURE GRAN ABSOLUTE AUTO 0.03 K/mm3 (0.00-0.10); IMMATURE GRAN PERCENT AUTO 1 % (0-1); LYMPHOCYTES ABSOLUTE AUTO 0.47 K/mm3 (0.84-5.20); LYMPHOCYTES PERCENT AUTO 18 % (21-46); MONOCYTES ABSOLUTE AUTO 0.38 K/mm3 (0.16-1.47); MONOCYTES PERCENT AUTO 15 % (4-13); Mean Corpuscular HGB 33.6 pg (26.0-34.0); Mean Corpuscular HGB Conc 32.4 g/dL (31.5-36.5); Mean Corpuscular Volume 104 fL (80-100); Mean Platelet Volume 11.9 fL (9.1-12.4); NEUTROPHILS ABSOLUTE AUTO 1.71 K/mm3 (1.96-9.15); NEUTROPHILS PERCENT AUTO 66 % (41-73); RDW Coefficient Variation 14.2 % (11.7-14.2); RDW Standard Deviation 53.4 fL (35.1-46.3); Red Blood Cell Count 2.68 M/mm3 (3.80-5.20)
[2019-06-06 20:24] LABS: Platelet Count 13 K/mm3 (150-400)
[2019-06-06 20:36] LABS: Albumin/Globulin Ratio 0.4 (0.8-1.8); Bilirubin, Total 2.7 mg/dL (0.1-1.0); Bun/Creatinine Ratio 3.8 (12.0-20.0); Calcium, Blood 8.6 mg/dL (8.5-10.1); Creatinine, Blood 5.48 mg/dL (0.40-1.00); Globulin, Blood 5.1 g/dL (2.2-4.0); Potassium, Blood 4.6 mmol/L (3.5-5.5); Total Protein, Blood 7.1 g/dL (6.4-8.2)
[2019-06-06] MEDS ORDERED: PROM25 PR (22:07)
[2019-06-06] MEDS ORDERED: METO10 PO (22:07)
== END 2019-06-06 22:57 | disposition home or self-care (01) ==
LOC: ER 18:25
PROVIDERS: Physician Assistant
DX: R11.2 Nausea with vomiting, unspecified (principal); I12.0 Hypertensive chronic kidney disease with stage 5 chronic kidney disease or end stage renal disease; N18.6 End stage renal disease; D63.1 Anemia in chronic kidney disease; Z79.899 Other long term (current) drug therapy; Z99.2 Dependence on renal dialysis
CPT/HCPCS: 36415; 74176; 80053; 83690; 85025; 93005; 93010; 96374; 96375; 99284-25; J2270; J2405; J2765

== ENCOUNTER 2019-06-15 05:36 | Emergency (ER) | payer MEDICARE, OTHER ==
[~2019-06-15] VITALS: Ht 165.1 cm; Wt 59.0 kg
[~2019-06-15 05:36] MED LIST changes: +METO10 PO; +PROM25 PR
[2019-06-15 06:42] LABS: BASOPHILS ABSOLUTE AUTO 0.03 K/mm3 (0.00-0.23); BASOPHILS PERCENT AUTO 1 % (0-2); EOSINOPHILS ABSOLUTE AUTO 0.03 K/mm3 (0.00-0.68); EOSINOPHILS PERCENT AUTO 1 % (0-6); Hematocrit 26.7 % (33.0-51.0); Hemoglobin 8.7 g/dL (11.5-16.0); IMMATURE GRAN ABSOLUTE AUTO 0.02 K/mm3 (0.00-0.10); IMMATURE GRAN PERCENT AUTO 1 % (0-1); LYMPHOCYTES ABSOLUTE AUTO 1.47 K/mm3 (0.84-5.20); LYMPHOCYTES PERCENT AUTO 34 % (21-46); MONOCYTES ABSOLUTE AUTO 0.89 K/mm3 (0.16-1.47); MONOCYTES PERCENT AUTO 21 % (4-13); Mean Corpuscular HGB 33.5 pg (26.0-34.0); Mean Corpuscular HGB Conc 32.6 g/dL (31.5-36.5); Mean Corpuscular Volume 103 fL (80-100); Mean Platelet Volume 9.7 fL (9.1-12.4); NEUTROPHILS ABSOLUTE AUTO 1.87 K/mm3 (1.96-9.15); NEUTROPHILS PERCENT AUTO 43 % (41-73); RDW Coefficient Variation 15.6 % (11.7-14.2); White Blood Cell Count 4.31 K/mm3 (4.00-11.30)
[2019-06-15 06:47] LABS: Albumin, Blood 1.8 g/dL (3.4-5.0); Albumin/Globulin Ratio 0.4 (0.8-1.8); Bilirubin, Total 2.5 mg/dL (0.1-1.0); Bun/Creatinine Ratio 3.4 (12.0-20.0); Calcium, Blood 7.9 mg/dL (8.5-10.1); Creatinine, Blood 3.8 mg/dL (0.40-1.00); Globulin, Blood 4.8 g/dL (2.2-4.0); Total Protein, Blood 6.6 g/dL (6.4-8.2)
[2019-06-15 06:50] LABS: Platelet Count 33 K/mm3 (150-400)
[2019-06-15 07:00] LABS: Troponin I 0.02 ng/mL (0.000-0.040)
== END 2019-06-15 09:00 | disposition home or self-care (01) ==
LOC: ER 05:36
PROVIDERS: Emergency Medicine
DX: M25.512 Pain in left shoulder (principal); R11.2 Nausea with vomiting, unspecified; I10 Essential (primary) hypertension; Z79.899 Other long term (current) drug therapy
CPT/HCPCS: 36415; 73030; 80053; 83690; 84484; 85025; 93005; 93010; 96360; 99284-25; J7030

== ENCOUNTER 2019-06-17 09:04 | Emergency (ER) | payer MEDICARE, OTHER ==
[~2019-06-17] VITALS: Ht 165.1 cm; Wt 59.0 kg
[2019-06-17 09:44] LABS: BASOPHILS ABSOLUTE AUTO 0.02 K/mm3 (0.00-0.23); BASOPHILS PERCENT AUTO 1 % (0-2); EOSINOPHILS ABSOLUTE AUTO 0.01 K/mm3 (0.00-0.68); EOSINOPHILS PERCENT AUTO 1 % (0-6); Hematocrit 27.1 % (33.0-51.0); Hemoglobin 8.8 g/dL (11.5-16.0); IMMATURE GRAN ABSOLUTE AUTO 0.01 K/mm3 (0.00-0.10); IMMATURE GRAN PERCENT AUTO 1 % (0-1); LYMPHOCYTES ABSOLUTE AUTO 0.59 K/mm3 (0.84-5.20); LYMPHOCYTES PERCENT AUTO 29 % (21-46); MONOCYTES ABSOLUTE AUTO 0.22 K/mm3 (0.16-1.47); MONOCYTES PERCENT AUTO 11 % (4-13); Mean Corpuscular HGB 33.2 pg (26.0-34.0); Mean Corpuscular HGB Conc 32.5 g/dL (31.5-36.5); Mean Corpuscular Volume 102 fL (80-100); NEUTROPHILS PERCENT AUTO 59 % (41-73); RDW Coefficient Variation 15.2 % (11.7-14.2); Red Blood Cell Count 2.65 M/mm3 (3.80-5.20); White Blood Cell Count 2.05 K/mm3 (4.00-11.30)
[2019-06-17 09:46] LABS: Platelet Count 30 K/mm3 (150-400)
[2019-06-17 09:56] LABS: Alanine Aminotransfer (ALT/SGP 33 U/L (12-78); Albumin, Blood 1.9 g/dL (3.4-5.0); Albumin/Globulin Ratio 0.3 (0.8-1.8); Alk Phos 173 U/L (50-136); Anion Gap 6 mmol/L (6-16); Aspartate Aminotrans (AST/SGOT 97 U/L (12-37); Bilirubin, Total 2.1 mg/dL (0.1-1.0); Blood Urea Nitrogen 9 mg/dL (8-24); Bun/Creatinine Ratio 3.7 (12.0-20.0); CO2, Blood 30 mmol/L (21-32); Calcium, Blood 7.4 mg/dL (8.5-10.1); Chloride, Blood 96 mmol/L (98-108); Creatinine, Blood 2.46 mg/dL (0.40-1.00); Globulin, Blood 5.6 g/dL (2.2-4.0); Glomerular Filtration Rate 21 (60-); Glucose, Blood 76 mg/dL (70-99); Magnesium, Blood 1.6 mg/dL (1.6-2.4); Sodium, Blood 132 mmol/L (136-145); Total Protein, Blood 7.5 g/dL (6.4-8.2)
[2019-06-17 09:58] LABS: Troponin I <0.015 ng/mL (0.000-0.040)
[2019-06-17] MEDS ORDERED: ONDA4ODT MM (11:00)
== END 2019-06-17 11:23 | disposition home or self-care (01) ==
LOC: ER 09:04
PROVIDERS: Emergency Medicine
DX: R11.2 Nausea with vomiting, unspecified (principal); I12.0 Hypertensive chronic kidney disease with stage 5 chronic kidney disease or end stage renal disease; N18.6 End stage renal disease; D63.1 Anemia in chronic kidney disease; D69.6 Thrombocytopenia, unspecified; Z99.2 Dependence on renal dialysis
CPT/HCPCS: 36415; 71045; 80053; 83735; 84100; 84484; 85025; 86850; 86900; 86901; 93005; 93010; 96374; 99284-25; J2405

== ENCOUNTER 2019-06-24 16:58 | Emergency (ER) | payer MEDICARE, OTHER ==
[~2019-06-24] VITALS: Ht 165.1 cm; Wt 68.0 kg
[2019-06-24 17:44] LABS: BASOPHILS ABSOLUTE AUTO 0.03 K/mm3 (0.00-0.23); BASOPHILS PERCENT AUTO 1 % (0-2); EOSINOPHILS ABSOLUTE AUTO 0.02 K/mm3 (0.00-0.68); EOSINOPHILS PERCENT AUTO 1 % (0-6); Hematocrit 32.6 % (33.0-51.0); Hemoglobin 10.9 g/dL (11.5-16.0); IMMATURE GRAN ABSOLUTE AUTO 0.02 K/mm3 (0.00-0.10); IMMATURE GRAN PERCENT AUTO 1 % (0-1); LYMPHOCYTES ABSOLUTE AUTO 1.38 K/mm3 (0.84-5.20); LYMPHOCYTES PERCENT AUTO 39 % (21-46); MONOCYTES ABSOLUTE AUTO 0.37 K/mm3 (0.16-1.47); MONOCYTES PERCENT AUTO 11 % (4-13); Mean Corpuscular HGB Conc 33.4 g/dL (31.5-36.5); Mean Corpuscular Volume 99 fL (80-100); Mean Platelet Volume 9.5 fL (9.1-12.4); NEUTROPHILS PERCENT AUTO 48 % (41-73); RDW Coefficient Variation 17.4 % (11.7-14.2); RDW Standard Deviation 59.2 fL (35.1-46.3); White Blood Cell Count 3.52 K/mm3 (4.00-11.30)
[2019-06-24 17:47] LABS: Platelet Count 25 K/mm3 (150-400)
[2019-06-24 18:07] LABS: Alanine Aminotransfer (ALT/SGP 18 U/L (12-78); Albumin, Blood 1.6 g/dL (3.4-5.0); Albumin/Globulin Ratio 0.3 (0.8-1.8); Alk Phos 185 U/L (50-136); Anion Gap 7 mmol/L (6-16); Aspartate Aminotrans (AST/SGOT 63 U/L (12-37); Bilirubin, Total 1.2 mg/dL (0.1-1.0); Blood Urea Nitrogen 14 mg/dL (8-24); Bun/Creatinine Ratio 3.3 (12.0-20.0); CO2, Blood 29 mmol/L (21-32); Calcium, Blood 7.5 mg/dL (8.5-10.1); Chloride, Blood 90 mmol/L (98-108); Creatinine, Blood 4.24 mg/dL (0.40-1.00); Globulin, Blood 5.4 g/dL (2.2-4.0); Glomerular Filtration Rate 11 (60-); Glucose, Blood 90 mg/dL (70-99); Potassium, Blood 3.7 mmol/L (3.5-5.5); Sodium, Blood 126 mmol/L (136-145); Troponin I <0.015 ng/mL (0.000-0.040)
[2019-06-24 19:14] LABS: Magnesium, Blood 1.5 mg/dL (1.6-2.4)
[2019-06-24 19:16] LABS: Phosphorus, Blood 2.1 mg/dL (2.5-4.9); Thyroid Stimulating Hormone 11.5 uIU/mL (0.360-4.800)
[2019-06-26] MEDS ORDERED: Kristalose20 GM PO (11:24)
== END 2019-06-24 18:32 | disposition home or self-care (01) ==
LOC: ER 16:58
PROVIDERS: Physician Assistant
DX: I12.0 Hypertensive chronic kidney disease with stage 5 chronic kidney disease or end stage renal disease (principal); N18.6 End stage renal disease; D63.1 Anemia in chronic kidney disease; E87.1 Hypo-osmolality and hyponatremia; D69.6 Thrombocytopenia, unspecified; R53.83 Other fatigue; Z99.2 Dependence on renal dialysis
CPT/HCPCS: 36415; 71045; 80053; 83735; 83880; 84100; 84443; 84484; 85025; 93005; 93010; 99284-25

== ENCOUNTER 2019-07-01 06:03 | Emergency (ER) | payer MEDICARE, OTHER ==
[~2019-07-01 06:03] MED LIST changes: +Kristalose20 GM PO
[2019-07-01 07:36] LABS: BASOPHILS ABSOLUTE AUTO 0.04 K/mm3 (0.00-0.23); BASOPHILS PERCENT AUTO 2 % (0-2); EOSINOPHILS ABSOLUTE AUTO 0.02 K/mm3 (0.00-0.68); EOSINOPHILS PERCENT AUTO 1 % (0-6); Hematocrit 31.4 % (33.0-51.0); Hemoglobin 10.5 g/dL (11.5-16.0); IMMATURE GRAN ABSOLUTE AUTO 0.01 K/mm3 (0.00-0.10); IMMATURE GRAN PERCENT AUTO 0 % (0-1); LYMPHOCYTES ABSOLUTE AUTO 0.94 K/mm3 (0.84-5.20); LYMPHOCYTES PERCENT AUTO 35 % (21-46); MONOCYTES ABSOLUTE AUTO 0.27 K/mm3 (0.16-1.47); MONOCYTES PERCENT AUTO 10 % (4-13); Mean Corpuscular HGB 33.5 pg (26.0-34.0); Mean Corpuscular HGB Conc 33.4 g/dL (31.5-36.5); Mean Corpuscular Volume 100 fL (80-100); Mean Platelet Volume 11.2 fL (9.1-12.4); NEUTROPHILS ABSOLUTE AUTO 1.44 K/mm3 (1.96-9.15); NEUTROPHILS PERCENT AUTO 53 % (41-73); RDW Coefficient Variation 17.7 % (11.7-14.2); RDW Standard Deviation 62.6 fL (35.1-46.3); Red Blood Cell Count 3.13 M/mm3 (3.80-5.20); White Blood Cell Count 2.72 K/mm3 (4.00-11.30)
[2019-07-01 07:44] LABS: FLAG (Sample Judgement Flag) Positive
[2019-07-01 07:51] LABS: Bun/Creatinine Ratio 1.7 (12.0-20.0); Calcium, Blood 7.7 mg/dL (8.5-10.1); Creatinine, Blood 4.11 mg/dL (0.40-1.00); Potassium, Blood 4.1 mmol/L (3.5-5.5)
[2019-07-01 07:52] LABS: PLATELET COUNT ESTIMATE 27 K/mm3 (Normal); SLIDE REVIEW Yes
[2019-07-01 07:53] LABS: Platelet Count 27 K/mm3 (150-400)
== END 2019-07-01 08:30 | disposition home or self-care (01) ==
PROVIDERS: Emergency Medicine
DX: Z49.02 Encounter for fitting and adjustment of peritoneal dialysis catheter (principal); I12.0 Hypertensive chronic kidney disease with stage 5 chronic kidney disease or end stage renal disease; N18.6 End stage renal disease; D63.1 Anemia in chronic kidney disease; Z79.899 Other long term (current) drug therapy

== ENCOUNTER 2019-07-03 06:26 | Emergency (ER) | payer MEDICARE, OTHER ==
[~2019-07-03] VITALS: Ht 165.1 cm; Wt 59.0 kg
[2019-07-03 08:11] LABS: BASOPHILS ABSOLUTE AUTO 0.03 K/mm3 (0.00-0.23); BASOPHILS PERCENT AUTO 1 % (0-2); EOSINOPHILS ABSOLUTE AUTO 0.02 K/mm3 (0.00-0.68); EOSINOPHILS PERCENT AUTO 1 % (0-6); Hematocrit 27.2 % (33.0-51.0); Hemoglobin 8.9 g/dL (11.5-16.0); Mean Corpuscular HGB 32.7 pg (26.0-34.0); Mean Corpuscular HGB Conc 32.7 g/dL (31.5-36.5); Mean Corpuscular Volume 100 fL (80-100); RDW Standard Deviation 63.9 fL (35.1-46.3); Red Blood Cell Count 2.72 M/mm3 (3.80-5.20); White Blood Cell Count 2.26 K/mm3 (4.00-11.30)
[2019-07-03 08:33] LABS: IMMATURE GRAN ABSOLUTE AUTO 0.01 K/mm3 (0.00-0.10); IMMATURE GRAN PERCENT AUTO 0 % (0-1); LYMPHOCYTES ABSOLUTE AUTO 0.73 K/mm3 (0.84-5.20); LYMPHOCYTES PERCENT AUTO 32 % (21-46); MONOCYTES ABSOLUTE AUTO 0.31 K/mm3 (0.16-1.47); MONOCYTES PERCENT AUTO 14 % (4-13); NEUTROPHILS ABSOLUTE AUTO 1.16 K/mm3 (1.96-9.15); NEUTROPHILS PERCENT AUTO 51 % (41-73); Platelet Count 22 K/mm3 (150-400)
[2019-07-03 08:38] LABS: Albumin, Blood 1.4 g/dL (3.4-5.0); Albumin/Globulin Ratio 0.2 (0.8-1.8); Bilirubin, Total 1.4 mg/dL (0.1-1.0); Bun/Creatinine Ratio 2.5 (12.0-20.0); Calcium, Blood 7.1 mg/dL (8.5-10.1); Creatinine, Blood 4.86 mg/dL (0.40-1.00); Globulin, Blood 6.2 g/dL (2.2-4.0); Total Protein, Blood 7.6 g/dL (6.4-8.2)
[2019-07-03] MEDS ORDERED: ONDA4 MM (08:51)
[2019-07-03] MEDS ORDERED: Lactulose10 GM/151 PO (21:10)
== END 2019-07-03 09:10 | disposition home or self-care (01) ==
LOC: ER 06:26
PROVIDERS: Emergency Medicine
DX: R11.2 Nausea with vomiting, unspecified (principal); K74.60 Unspecified cirrhosis of liver; R18.8 Other ascites; D75.9 Disease of blood and blood-forming organs, unspecified; I12.0 Hypertensive chronic kidney disease with stage 5 chronic kidney disease or end stage renal disease; N18.6 End stage renal disease; D63.1 Anemia in chronic kidney disease; Z99.2 Dependence on renal dialysis
CPT/HCPCS: 36415; 74176; 80053; 82140; 83690; 85025; 96374; 99284-25; J2405

== ENCOUNTER 2019-07-03 19:34 | Observation (INO) | payer MEDICARE, OTHER ==
[~2019-07-03] VITALS: Ht 165.1 cm; Wt 66.5 kg
[~2019-07-03 19:34] MED LIST changes: +ONDA4 MM
[2019-07-03] MEDS ORDERED: Lactulose10 GM/151 PO (21:10)
[2019-07-03 23:18] LABS: BASOPHILS ABSOLUTE AUTO 0.02 K/mm3 (0.00-0.23); BASOPHILS PERCENT AUTO 1 % (0-2); EOSINOPHILS ABSOLUTE AUTO 0.02 K/mm3 (0.00-0.68); EOSINOPHILS PERCENT AUTO 1 % (0-6); Hematocrit 30.2 % (33.0-51.0); IMMATURE GRAN ABSOLUTE AUTO 0.01 K/mm3 (0.00-0.10); IMMATURE GRAN PERCENT AUTO 0 % (0-1); LYMPHOCYTES PERCENT AUTO 25 % (21-46); MONOCYTES ABSOLUTE AUTO 0.34 K/mm3 (0.16-1.47); MONOCYTES PERCENT AUTO 14 % (4-13); Mean Corpuscular HGB 32.7 pg (26.0-34.0); Mean Corpuscular HGB Conc 33.1 g/dL (31.5-36.5); Mean Corpuscular Volume 99 fL (80-100); Mean Platelet Volume 10.8 fL (9.1-12.4); NEUTROPHILS ABSOLUTE AUTO 1.42 K/mm3 (1.96-9.15); NEUTROPHILS PERCENT AUTO 59 % (41-73); RDW Coefficient Variation 17.7 % (11.7-14.2); RDW Standard Deviation 63.7 fL (35.1-46.3); Red Blood Cell Count 3.06 M/mm3 (3.80-5.20); White Blood Cell Count 2.41 K/mm3 (4.00-11.30)
[2019-07-03 23:20] LABS: Platelet Count 20 K/mm3 (150-400)
[2019-07-03 23:38] LABS: Albumin, Blood 1.8 g/dL (3.4-5.0); Albumin/Globulin Ratio 0.3 (0.8-1.8); Bilirubin, Total 2.7 mg/dL (0.1-1.0); Bun/Creatinine Ratio 2.7 (12.0-20.0); Calcium, Blood 8.3 mg/dL (8.5-10.1); Magnesium, Blood 1.5 mg/dL (1.6-2.4); Phosphorus, Blood 3.4 mg/dL (2.5-4.9); Potassium, Blood 4.5 mmol/L (3.5-5.5); Total Protein, Blood 7.8 g/dL (6.4-8.2)
[2019-07-04 00:02] LABS: International Normalized Ratio 1.44; Prothrombin Time Results 15.1 Sec (9.7-11.5)
--- NOTE | 2019-07-04 05:56 | NUR ---
SHIFT SUMMARY PT NEW ADMIT TO FLOOR LAST NIGHT AROUND 2300. REPORTED NAUSEA, GAVE 1X DOSE OF ODT ZOFRAN THAT WAS ORDERED IN ER & WASN'T GIVEN, WITHIN 30MIN PT HAD EMESIS. CALLED DR MILLER & SHE ORDERED ANOTHER 1X DOSE OF ODT ZOFRAN SINCE PT CAME TO FLOOR W/O IV ACCESS & REPORTED TO USE IV ZOFRAN ONCE THERE WAS IV ACCESS. PT IS A HARD IV STICK, AFTER MULTIPLE NURSES ATTEMPTED, PCU CHARGE NURSE CARLA MENESES OBTAINED IV ACESS BY ULTRASOUND THIS AM. GAVE IV ZOFRAN 1X SINCE. HAD A TOTAL OF 1100ML DARK GREEN EMESIS. ABD IS VERY DISTENDED, FIRM & TIGHT. HAS ONLY TAKEN A FEW SIPS OF WATER, ON CLEAR LIQUID DIET. AOX3-REPORTS FEELING MORE CONFUSED THEN USUAL, & IS UNABLE TO ANSWER YEAR OR PLACE, BUT KNOWS IT'S [place]. STATES SHE "MAY HAVE MISSED A DIALYSIS APPOINMENT BUT CAN'T REMEMBER." BLADDER SCANNED 2X & BOTH TIMES IT SHOWED >999. HOWEVER CT SHOWED PT HAS ASCITIES, & SHE HAS URINATED MULTIPLE TIMES. I DISCUSSED W/CHARGE NURSE & WE BELIEVE BLADDER SCAN WAS SHOWING ASCITIES. DENIES PAIN OR DYSPNEA. LAST NIGHT DURING ASSESSMENT PT STATED "I WISH I COULD GO TO SLEEP & NOT WAKE UP." ASKED PT IF SHE FELT SUICIDAL & SHE REPORTED "NO" HOWEVER STATED SHE HAS FELT DEPRESSED LATELY. DENIES ANY ETOH USE FOR THE PAST 2 MONTHS. PLANNED FOR PARACENTESIS TODAY. CALL LIGHT IN REACH. [facility].
--- NOTE | 2019-07-04 06:21 | NUR ---
LABS LAB WAS UNABLE TO OBTAIN BLOOD SAMPLE FOR LABS THIS AM AFTER 2 LAB EMPLOYEES ATTEMPTED. ASKED IF DIALYSIS NURSE COULD OBTAIN LABS DURING DIALYSIS, WILL PASS TO ONCOMING NURSE.
--- NOTE | 2019-07-04 09:30 | NUR ---
US-guided paracentesis Per Service Associate, paracentesis has been moved to tomorrow (07/04) d/t patient having hemodialysis today.
[2019-07-04 09:38] LABS: BASOPHILS ABSOLUTE AUTO 0.01 K/mm3 (0.00-0.23); BASOPHILS PERCENT AUTO 0 % (0-2); EOSINOPHILS PERCENT AUTO 0 % (0-6); Hematocrit 28.6 % (33.0-51.0); Hemoglobin 9.5 g/dL (11.5-16.0); IMMATURE GRAN ABSOLUTE AUTO 0.02 K/mm3 (0.00-0.10); IMMATURE GRAN PERCENT AUTO 1 % (0-1); LYMPHOCYTES ABSOLUTE AUTO 0.49 K/mm3 (0.84-5.20); LYMPHOCYTES PERCENT AUTO 16 % (21-46); MONOCYTES ABSOLUTE AUTO 0.39 K/mm3 (0.16-1.47); MONOCYTES PERCENT AUTO 13 % (4-13); Mean Corpuscular HGB 32.9 pg (26.0-34.0); Mean Corpuscular HGB Conc 33.2 g/dL (31.5-36.5); Mean Corpuscular Volume 99 fL (80-100); Mean Platelet Volume 11.2 fL (9.1-12.4); NEUTROPHILS ABSOLUTE AUTO 2.15 K/mm3 (1.96-9.15); NEUTROPHILS PERCENT AUTO 70 % (41-73); RDW Standard Deviation 63.5 fL (35.1-46.3); Red Blood Cell Count 2.89 M/mm3 (3.80-5.20); White Blood Cell Count 3.06 K/mm3 (4.00-11.30)
[2019-07-04 09:53] LABS: Albumin, Blood 1.8 g/dL (3.4-5.0); Anion Gap 9 mmol/L (6-16); Blood Urea Nitrogen 21 mg/dL (8-24); Bun/Creatinine Ratio 3.3 (12.0-20.0); CO2, Blood 29 mmol/L (21-32); Calcium, Blood 8.3 mg/dL (8.5-10.1); Chloride, Blood 89 mmol/L (98-108); Creatinine, Blood 6.34 mg/dL (0.40-1.00); Glomerular Filtration Rate 7 (60-); Glucose, Blood 107 mg/dL (70-99); Magnesium, Blood 1.6 mg/dL (1.6-2.4); Phosphorus, Blood 4.1 mg/dL (2.5-4.9); Platelet Count 21 K/mm3 (150-400); Potassium, Blood 4.7 mmol/L (3.5-5.5); Sodium, Blood 127 mmol/L (136-145)
--- NOTE | 2019-07-04 09:53 | NUR ---
Platelet 21 Received critical platelet of [address] Barrios notifed. No new orders.
--- NOTE | 2019-07-04 17:08 | NUR ---
Shift Summary A/Ox2-3, pleasant lady who uses call light appropriately. Patient verbalizes depression and has been tearful when asking for assistance with ADL's. HD was completed today, tolerated well. N/V x 1 with 300 mL light greenish emesis, patient declined antiemetics when offered. No other episodes t/o day; tolerating clear liquids and ice pops well. Abdomen remains distended and firm, no c/o pain. Paracentesis planned for tomorrow. No other acute changes, will continue to monitor.
[2019-07-05 05:26] LABS: BASOPHILS ABSOLUTE AUTO 0.01 K/mm3 (0.00-0.23); BASOPHILS PERCENT AUTO 1 % (0-2); EOSINOPHILS ABSOLUTE AUTO 0.01 K/mm3 (0.00-0.68); EOSINOPHILS PERCENT AUTO 1 % (0-6); Hemoglobin 9.2 g/dL (11.5-16.0); IMMATURE GRAN ABSOLUTE AUTO 0.01 K/mm3 (0.00-0.10); IMMATURE GRAN PERCENT AUTO 1 % (0-1); LYMPHOCYTES ABSOLUTE AUTO 0.62 K/mm3 (0.84-5.20); LYMPHOCYTES PERCENT AUTO 29 % (21-46); MONOCYTES ABSOLUTE AUTO 0.27 K/mm3 (0.16-1.47); MONOCYTES PERCENT AUTO 13 % (4-13); Mean Corpuscular HGB 33.7 pg (26.0-34.0); Mean Corpuscular HGB Conc 32.9 g/dL (31.5-36.5); Mean Platelet Volume 11.6 fL (9.1-12.4); NEUTROPHILS ABSOLUTE AUTO 1.19 K/mm3 (1.96-9.15); NEUTROPHILS PERCENT AUTO 56 % (41-73); RDW Standard Deviation 69.7 fL (35.1-46.3); Red Blood Cell Count 2.73 M/mm3 (3.80-5.20); White Blood Cell Count 2.11 K/mm3 (4.00-11.30)
--- NOTE | 2019-07-05 05:27 | NUR ---
SHIFT SUMMARY PT HAS RESTED OFF AND ON. A/OX3 OCCASIONALLY FORGETFUL, PT HAS NOT HAD ANY N/V THIS SHIFT AND HER APPETITE HAS RETURNED. SHE HAS REQUESTED FOOD ANYTIME STAFF ASK IF SHE NEEDS ANYTHING. PT IS CURRENTLY CLEAR LIQUIDS AT THIS TIME. HOPEFULLY DIET CAN BE ADVANCED TODAY GIVEN HER IMPROVEMENT. PT VITALS STABLE, SBA TO BSC. NO ACUTE CHANGES OVERNIGHT. BED IN LOWEST POSITION, CALL LIGHT WITHIN REACH. WILL CONTINUE TO MONITOR AND REPORT TO ONCOMING RN.
[2019-07-05 05:43] LABS: Albumin, Blood 1.6 g/dL (3.4-5.0); Anion Gap 6 mmol/L (6-16); Blood Urea Nitrogen 15 mg/dL (8-24); Bun/Creatinine Ratio 3.2 (12.0-20.0); CO2, Blood 30 mmol/L (21-32); Calcium, Blood 8.1 mg/dL (8.5-10.1); Chloride, Blood 95 mmol/L (98-108); Creatinine, Blood 4.62 mg/dL (0.40-1.00); Glomerular Filtration Rate 10 (60-); Glucose, Blood 107 mg/dL (70-99); Magnesium, Blood 1.7 mg/dL (1.6-2.4); Potassium, Blood 3.6 mmol/L (3.5-5.5); Sodium, Blood 131 mmol/L (136-145)
[2019-07-05 05:55] LABS: Mean Corpuscular Volume 103 fL (80-100)
[2019-07-05 06:00] LABS: Platelet Count 18 K/mm3 (150-400)
[2019-07-05] MEDS ORDERED: Enulose10 GM/15 M PO (11:38)
--- NOTE | 2019-07-05 13:06 | NUR ---
PT DISCHARGED FROM THE UNIT. IV REMOVED. MEDICATIONS FAXED TO [facility]. [facility] CALLED TO CLARIFY THE DURATION OF LACTULOCE PRESCRIPTION. CALLED DR. PEREZ AND INCREASED DURATION TO TWO WEEKS OF MEDICATION. CALLED PHARMACY BACK TO NOTIFY.
== END 2019-07-05 12:49 | disposition home or self-care (01) ==
LOC: ER 19:34 → MEDS 19:35
PROVIDERS: Emergency Medicine; Internal Medicine Nephrology; Physician Assistant; ADMIT Family Medicine
DX: I12.0 Hypertensive chronic kidney disease with stage 5 chronic kidney disease or end stage renal disease (principal); N18.6 End stage renal disease; G92 Toxic encephalopathy; R11.2 Nausea with vomiting, unspecified; E87.1 Hypo-osmolality and hyponatremia; E87.70 Fluid overload, unspecified; K70.31 Alcoholic cirrhosis of liver with ascites; D69.6 Thrombocytopenia, unspecified; D61.818 Other pancytopenia; D63.1 Anemia in chronic kidney disease; K72.90 Hepatic failure, unspecified without coma; K76.6 Portal hypertension; Z99.2 Dependence on renal dialysis; Z79.899 Other long term (current) drug therapy; Z87.891 Personal history of nicotine dependence
CPT/HCPCS: 36415; 80053; 80069; 83735; 84100; 85025; 85610; 96372; 96374; 99284; G0257; G0378; J0881; J2405

== ENCOUNTER → 2019-07-27 | Outpatient (CLI) | payer MEDICARE, OTHER ==
[~2019-07-27] MED LIST changes: +Enulose10 GM/15 M PO; +Lactulose10 GM/151 PO
[2019-07-27 17:18] LABS: BASOPHILS ABSOLUTE AUTO 0.04 K/mm3 (0.00-0.23); BASOPHILS PERCENT AUTO 1 % (0-2); EOSINOPHILS ABSOLUTE AUTO 0.01 K/mm3 (0.00-0.68); EOSINOPHILS PERCENT AUTO 0 % (0-6); Hematocrit 25.9 % (33.0-51.0); Hemoglobin 8.2 g/dL (11.5-16.0); IMMATURE GRAN ABSOLUTE AUTO 0.04 K/mm3 (0.00-0.10); IMMATURE GRAN PERCENT AUTO 1 % (0-1); LYMPHOCYTES ABSOLUTE AUTO 1.74 K/mm3 (0.84-5.20); LYMPHOCYTES PERCENT AUTO 23 % (21-46); MONOCYTES ABSOLUTE AUTO 0.56 K/mm3 (0.16-1.47); MONOCYTES PERCENT AUTO 8 % (4-13); Mean Corpuscular HGB 32.9 pg (26.0-34.0); Mean Corpuscular HGB Conc 31.7 g/dL (31.5-36.5); Mean Corpuscular Volume 104 fL (80-100); Mean Platelet Volume 10.9 fL (9.1-12.4); NEUTROPHILS ABSOLUTE AUTO 5.07 K/mm3 (1.96-9.15); NEUTROPHILS PERCENT AUTO 68 % (41-73); RDW Coefficient Variation 19.4 % (11.7-14.2); Red Blood Cell Count 2.49 M/mm3 (3.80-5.20); White Blood Cell Count 7.46 K/mm3 (4.00-11.30)
[2019-07-27 17:31] LABS: Albumin, Blood 1.5 g/dL (3.4-5.0); Albumin/Globulin Ratio 0.2 (0.8-1.8); Bilirubin, Total 2.1 mg/dL (0.1-1.0); Bun/Creatinine Ratio 2.9 (12.0-20.0); Calcium, Blood 7.9 mg/dL (8.5-10.1); Creatinine, Blood 2.73 mg/dL (0.40-1.00); Globulin, Blood 6.1 g/dL (2.2-4.0); Potassium, Blood 3.9 mmol/L (3.5-5.5); Total Protein, Blood 7.6 g/dL (6.4-8.2)
[2019-07-27 17:32] LABS: Platelet Count 47 K/mm3 (150-400)
== END | disposition home or self-care (01) ==
LOC: LAB 15:45 → LAB SHORT 15:45
PROVIDERS: Family Medicine
DX: K72.90 Hepatic failure, unspecified without coma (principal); K70.31 Alcoholic cirrhosis of liver with ascites; D61.818 Other pancytopenia; M19.012 Primary osteoarthritis, left shoulder; N18.6 End stage renal disease; D63.1 Anemia in chronic kidney disease; Z99.2 Dependence on renal dialysis
CPT/HCPCS: 80053; 82140; 85025